=== PATIENT | male | born 1970 | race Caucasian/White ===

== ENCOUNTER 2021-05-18 18:39 | Observation (INO) | payer BC, SELFPAY ==
--- NOTE | ~2021-05-18 | XR_ITS ---
EXAMINATION: XR chest 2V EXAM DATE: 05/18/2021 19:06 INDICATION: HX MA Stents In February,Dizzy,Richard Arm Weakness. TECHNIQUE: Frontal and lateral projections of the chest obtained and reviewed. There is no prior italo dy for comparison. FINDINGS: The lungs are clear. There are no pleural effusions. The cardiomediastinal silhouette is within normal limits. There is no pneumothorax suspected. The bones and soft tissues are unremarkab le. IMPRESSION: No acute cardiopulmonary findings. Reviewed, dictated and finalized at location [facility] [employer]
--- NOTE | 2021-05-18 18:40 | ECG_ITS ---
Measurements Intervals [place] Rate: 73 P: 51 NM: 143 QRS: -25 QRSD: 104 T: 36 QT: 420 QTc: 463 Interpretive Statements SINUS RHYTHM INCOMPLETE RIGHT BUNDLE BRANCH BLOCK CONSIDER INFERIOR INFARCT, AGE INDETERMINATE ABNORMAL ECG Electronically Signed On 05-19-2021 6:32:05 DIVISION SUPERVISOR by Carlton Clement D.O.
[2021-05-18 18:51] VITALS: BP 130/89; PULSE 74; RESP 18; TEMP 36.6; O2SAT 98
[2021-05-18 19:37] LABS: Alanine Aminotransferase 55 U/L (4-50); Albumin Level 4.3 g/dL (3.5-5.1); Alkaline Phosphatase 106 U/L (38-126); Anion Gap 2 mmol/L (8-16); Aspartate Amino Transferase 41 U/L (17-59); Bilirubin,Total 0.5 mg/dL (0.2-1.3); Blood Urea Nitrogen 20 mg/dL (9-20); Calcium 8.9 mg/dL (8.4-10.2); Carbon Dioxide 29 mmol/L (22-30); Chloride 105 mmol/L (98-107); Estimated CRCL calculation 92 ml/min; Estimated Glomerular Filt Rate > 60; Glucose 118 mg/dL (65-110); INR 0.9; Lipase 115 U/L (23-300); Prothrombin Time 12.3 Seconds (11.1-14.7); Sodium 136 mmol/L (137-145)
[2021-05-18 19:38] LABS: Partial Thromboplastin Time 25.7 SECONDS (22.3-36.8)
[2021-05-18 19:48] LABS: Troponin I < 0.012 ng/mL (0.000-0.034)
[2021-05-18 21:15] VITALS: BP 130/80; PULSE 63; RESP 18; TEMP 36.6; O2SAT 98
[2021-05-18 21:28] LABS: Basophils Percent Auto 0.3 % (0.2-1.2); Eosinophils Absolute Auto 0.1 K/mm3 (0-0.3); Hematocrit 45.6 % (42.0-52.0); Hemoglobin 15.3 g/dL (14.0-18.0); Immature Granulocyte Absolute 0.01 K/mm3 (0.00-0.031); Immature Granulocyte Percent A 0.3 % (0-0.5); Lymphocytes Absolute Auto 0.77 K/mm3 (0.9-3.2); Mean Corpuscular HGB Conc 33.6 g/dl (32-36); Mean Corpuscular Hemoglobin 28.5 pg (26-34); Mean Corpuscular Volume 84.9 fl (80-100); Mean Platelet Volume 9.8 fl (7.4-10.4); Monocytes Absolute Auto 0.5 K/mm3 (0.1-0.6); Monocytes Percent Auto 12.8 % (2.6-8.5); Neutrophils Absolute Auto 2.3 K/mm3 (1.3-6.7); Neutrophils Percent Auto 62.6 % (45.5-73.1); Platelet Count Result 149 k/mm3 (150-375); Red Blood Count 5.37 M/mm3 (4.6-6.20); White Blood Count 3.7 K/mm3 (4.5-10.0)
[2021-05-18 21:41] VITALS: PULSE 64
[2021-05-18] MEDS: ASPIRIN 81 MG CHEWABLE TABLET 324 MG PO (21:48)
[2021-05-18 21:52] LABS: Troponin I < 0.012 ng/mL (0.000-0.034)
[2021-05-18] MEDS: Please add drug allergy info to patient profile. 1 EACH XX (21:59)
[2021-05-18] MEDS: NITROGLYCERIN OINTMENT 1 INCH DOSE TRANSDERM (22:00)
[2021-05-18 22:02] VITALS: BP 125/82; PULSE 61; RESP 18; O2SAT 98
--- NOTE | 2021-05-18 22:17 | ED.CHESTPAIN ---
HPI - Chest Pain General Chief Complaint: Chest Pain Stated Complaint: Chest Pain Time Seen by Provider: 05/18/21 21:33 Source: patient Mode of arrival: ambulatory Limitations: no limitations History of Present Illness HPI narrative: Patient is a 50-year-old male complaining of chest pain, midsternal, tightness, was 6 out of 10, currently now down to 0 out of 10, nonradiating accompanied by shortness of breath and nausea that started earlier tonight. Patient states that he is feeling better and currently has no symptoms. Patient denies any abdominal pain, vomiting, diaphoresis, fever or chills. Review of Systems Review of Systems: All systems reviewed & are unremarkable except as noted in HPI and below Constitutional: Constitutional: Denies body ache(s), Denies chills, Denies excessive sweating, Denies fatigue, Denies fever(s), Denies headache(s), Denies lethargy, Denies malaise, Denies weakness and Denies weight loss Eyes: Eyes: Denies blurry vision, Denies change in vision and Denies loss of vision ENT: Denies dizziness, Denies ear discharge, Denies headache(s), Denies lip swelling, Denies epistaxis, Denies nasal congestion, Denies neck pain, Denies throat swelling and Denies tongue swelling Cardiovascular: Cardiovascular: Denies diaphoresis, Denies rapid heart rate, Denies edema, Denies irregular heart rhythm, Denies lightheadedness and Denies palpitations Respiratory: Respiratory: Denies chest congestion, Denies cough and Denies hemoptysis Gastrointestinal: Gastrointestinal: Denies abdominal pain, Denies melena, Denies hematochezia, Denies diarrhea, Denies vomiting and Denies hematemesis Musculoskeletal: Musculoskeletal: Denies abnormal gait, Denies deformity, Denies joint swelling, Denies limited range of motion, Denies neck pain and Denies numbness Neurologic: Denies Abnormal speech present, Denies abnormal gait, Denies confusion, Denies dizziness, Denies headache(s), Denies focal weakness, Denies loss of vision, Denies numbness, Denies Other visual disturbances, Denies Sensory deficit (Neuro) and Denies weakness Psychiatric: Psychiatric: Denies confusion, Denies depression, Denies auditory hallucinations, Denies homicidal ideation and Denies suicidal ideation Endocrine: Endocrine: Denies cold intolerance, Denies excessive sweating, Denies fatigue, Denies heat intolerance and Denies palpitations Hematologic/Lymphatic: Hematologic/Lymphatic: Denies easy bleeding and Denies easy bruising Allergic/Immunologic: Allergic/Immunologic: Denies lip swelling, Denies throat swelling and Denies tongue swelling PMFSH Comments Past medical history: Coronary artery disease with stent placement, OR, atrial fibrillation, hypertension Family history: Positive for coronary artery disease Social history: Non-smoker no EtOH or drug use Exam Const: General: cooperative, healthy appearing, comfortable, no acute distress, well developed, alert and awake; No confusion Orientation/consciousness: oriented to person, oriented to place, oriented to time, patient oriented x3 and No confusion Limitations: no limitations HENMT: Head: normal to inspection, normocephalic and atraumatic Ears: hearing grossly normal bilaterally, TM normal on the right and TM normal on the left General nose exam: Normal external nose present, Normal nares present and No nasal discharge present Face and sinus: normal facial exam Mouth: Yes Normal oral and palatal mucosa present, Yes lip normal, Yes tongue normal and Yes oropharynx normal Throat: posterior oropharynx normal, tonsils normal and uvula midline Eyes: General: appearance normal, both eyes and all related structures Pupils: Equal, round and reactive pupils present EOM: EOMs intact bilaterally Neck: Neck: normal visual inspection, full ROM, no lymphadenopathy and no meningeal signs Chest: Chest palpation & inspection: normal inspection of the chest Resp: Effort & Inspection: normal respiratory effort, able to speak in
--- NOTE | 2021-05-18 22:52 | PM.IMHP ---
H&P: HPI History of Present Illness Date/Time: 05/18/21 22:52 Chief Complaint: Chest pain Narrative: This is a 50-year-old male with past medical history significant for coronary artery disease status post stent placement. Patient is in the area looking to buy a house and was house hunting when he suddenly felt shooting pain down and his neck to his elbows bilaterally, feeling of warmth, chest pain, which he states is nothing like when he had the heart attack' patient has been compliant with his medication he had a drug-eluting stent placed. He had episodes of angina post cardiac catheterization going a 2nd time for cardiac catheterization is stent was patent and he was placed on Ranexa. Patient has been his usual state of health denies any fevers, any rigors ,any chills ,any cough, sputum production, shortness of breath ,cough ,PND ,orthopnea, leg swelling, calves pain, no dizziness, no lightheadedness, no syncope or near syncope, denies any chest pain radiating to the jaw, shoulder or arm, on the left side no change in vision. Preliminary workup has been essentially nonrevealing. Patient is being admitted for further evaluation management and treatment. Review of Systems Review of Systems: Chest discomfort Constitutional: Constitutional: Denies chills, Denies fatigue, Denies fever(s), Denies malaise, Denies night sweats and Denies weakness Eyes: Eyes: Denies change in vision ENT: Denies dysphagia, Denies vertigo, Denies dizziness, Denies nasal congestion, Denies nasal discharge, Denies nasal obstruction and Denies odynophagia Cardiovascular: Cardiovascular: Reports chest pain, Denies syncope, Denies pedal edema, Denies irregular heart rhythm, Denies leg edema, Denies lightheadedness, Denies radiating jaw, neck or arm pain, Denies palpitations, Denies dyspnea on exertion, Denies orthopnea and Denies paroxysmal nocturnal dyspnea Respiratory: Respiratory: Denies cough, Denies excessive phlegm production, Denies dyspnea and Denies wheezing Gastrointestinal: Gastrointestinal: Denies abdominal pain, Denies dyspepsia, Denies heartburn, Denies diarrhea, Denies nausea and Denies vomiting Genitourinary: Genitourinary: Denies dysuria Musculoskeletal: Musculoskeletal: Denies back pain, Denies myalgias, Denies arthralgias, Denies joint swelling, Denies muscle cramps, Denies muscle weakness and Denies neck pain Integumentary/Breasts: Skin/Breast: Denies rash Neurologic: Denies vertigo, Denies dizziness, Denies syncope, Denies focal weakness and Denies Sensory deficit (Neuro) Psychiatric: Psychiatric: Reports no additional psychiatric complaints and Reports as per HPI Endocrine: Endocrine: Denies cold intolerance, Denies heat intolerance, Denies polyphagia, Denies polydipsia and Denies palpitations Hematologic/Lymphatic: Hematologic/Lymphatic: Reports no additional hematologic/lymphatic complaints and Reports as per HPI Allergic/Immunologic: Allergic/Immunologic: Reports no additional allergic/immunologic complaints and Reports as per HPI [facility] Social History Social History Smoking status: Never smoker Alcohol intake: never Substance use: never Substance use type: does not use Spiritual care concerns: No Meds Home Medications and Allergies Home Medications Medication Instructions Recorded Confirmed Type aspirin [Adult Low Dose Aspirin] 81 mg PO DAILY 05/18/21 05/18/21 History clopidogrel [Plavix] 75 mg PO DAILY 05/18/21 05/18/21 History metoprolol succinate [Toprol XL] 50 mg PO BOLUS 05/18/21 05/18/21 History nitroglycerin [Nitrostat] 0.4 mg SUBLINGUAL PRN PRN 05/18/21 05/18/21 History ranolazine [Ranexa] 500 mg PO BID 05/18/21 05/18/21 History rosuvastatin [Crestor] 40 mg PO QACDINNER 05/18/21 05/18/21 History Allergies Allergy/AdvReac Type Severity Reaction Status Date / Time No Known Allergies Allergy Verified 05/19/21 00:11 Vital Signs Vital Signs - 24 hr 05/18/21 18:51 05/18/21 21:15 05/18/21 21:41
[2021-05-18 23:00] VITALS: BP 115/79; PULSE 58; RESP 18; O2SAT 99
[2021-05-19] VITALS (9 sets, daily range): BP systolic 103–125; BP diastolic 61–74; PULSE 48–81; RESP 14–20; TEMP 36.3–37.1; O2SAT 98–99; BMI 34.2
[2021-05-19 01:01] LABS: SARS-CoV-2 RNA PCR Positive
--- NOTE | 2021-05-19 01:15 | PC.NURSE ---
attempted to call report to IMU nurse will call back
[2021-05-19 01:40] LABS: Troponin I < 0.012 ng/mL (0.000-0.034)
--- NOTE | 2021-05-19 02:40 | ADMGEN ---
This patient, Rafi Yepez, was admitted to IMU Room 213-05/19/21 at 0150. Patient/family oriented to hospital policies and general routines including ID bracelet, bed and alarms, visiting hours, pain management, procedures, bathroom and other care routines, personal items, smoking policy, room service/diet, and visiting hours. Information on how to activate the Rapid Response Team has been discussed. Patient/Family are encouraged to report perceived risks to care and to ask questions if they do not understand what they are told or what they should do.
[2021-05-19] MEDS: ASPIRIN 81 MG ENTERIC TABLET PO (08:24)
[2021-05-19] MEDS: CLOPIDOGREL BISULFATE 75 MG TABLET PO (08:24)
[2021-05-19] MEDS: RANOLAZINE 500 MG TAB.ER.12H PO (08:24)
--- NOTE | 2021-05-19 08:45 | PM.CNCAR ---
Assessment and Plan Assessment and plan (1) Coronary artery disease: Code(s): I25.10 - Atherosclerotic heart disease of [place] coronary artery without angina pectoris Status: Acute Assessment and Plan: History of coronary artery disease with AMI in February 2021 s/p stenting. Details of his PCI are unknown as this procedure was done in [place], but from patient description sounds like he received one stent to his LAD. He did return to the pathology laboratory aides teacher for a repeat angiogram subsequent to stent placement for some chest pain and what the patient describes as numbness and shakiness. According to the patient's report there was no restenosis of recently placed stent and no other obstructive disease that was intervened upon. He was placed on Ranexa. He is on DAPT with ASA, Plavix (2) Chest pain: Qualifiers: Chest pain type: chest pain due to myocardial ischemia Ischemic chest pain type: stable angina pectoris Qualified Code(s): I20.8 - Other forms of angina pectoris Code(s): R07.9 - Chest pain, unspecified Status: Acute Assessment and Plan: Atypical sounding chest pain with associated clammy palms, feeling jittery and bilateral upper arm pain. His serial troponin levels have been negative and EKG does not have any ST-T changes suggestive of ischemia. Symptoms possibly associated with paroxysms of atrial fibrillation. No indication for further cardiac work up at this time. He does have an appointment with his local drug enforcement administration agent early next week and will be established with our practice when he moves. Will arrange outpatient follow up in one month. (3) Atrial fibrillation, currently in sinus rhythm: Code(s): Z86.79 - Personal history of other diseases of the circulatory system Status: Acute Assessment and Plan: Has been in sinus rhythm with no evidence of atrial fibrillation on telemetry during this hospitalization. History of Present Illness History of Present Illness Consult date/time: 05/19/21 08:45 Mr. Yepez this is a 50-year-old male with a medical history of coronary disease status post PCI in February of 2021 and paroxysmal atrial fibrillation. Patient who presented to the emergency department yesterday with complaints of feeling jittery and having sweaty palms. He states that he and his for viewing several homes yesterday as they are planning to move to the area soon when he began to experience clammy palms, feeling jittery, and some mild chest discomfort. He describes the pain as very mild, rating it a 2-3/10. He also describes some muscle cramping on his bilateral triceps. The symptoms came and went for a span of about 7 hours at which point he decided to present to the emergency department. Since his presentation to the hospital he has not had any recurrence of symptoms and presently he has no chest pain or other symptoms. He was tested for COVID and his results have come back positive. Currently saturating well on room air with no respiratory distress. Requesting physician: Real Bernal MD Consult reason: chest pain Reason For Visit: Chest Pain Review of Systems Review of Systems: All systems reviewed & are unremarkable except as noted in HPI and below Constitutional: Constitutional: Denies fatigue, Denies lethargy and Denies weakness Eyes: Eyes: Denies change in vision ENT: Denies Normal hearing present (hearing loss left ear ) Cardiovascular: Cardiovascular: Reports chest pain, Denies diaphoresis, Denies pedal edema, Denies leg edema, Denies lightheadedness and Denies palpitations Respiratory: Respiratory: Denies dyspnea and Denies dyspnea on exertion Gastrointestinal: Gastrointestinal: Denies constipation and Denies diarrhea Genitourinary: Genitourinary: Denies urinary frequency, Denies urinary hesitancy and Denies urinary urgency Musculoskeletal: Musculoskeletal: Denies myalgias, Denies arthralgias and Denies joint swelling Integum
--- NOTE | 2021-05-19 13:20 | PM.DS ---
DS: Discharge Diagnosis Discharge Diagnosis (1) Chest pain: Qualifiers: Chest pain type: chest pain due to myocardial ischemia Ischemic chest pain type: stable angina pectoris Qualified Code(s): I20.8 - Other forms of angina pectoris Code(s): R07.9 - Chest pain, unspecified Status: Acute Assessment and Plan: Admit to IMU Continues telemetry Trend troponins EKG reviewed Repeat EKG in the morning Cardiology consult (2) Coronary artery disease: Code(s): I25.10 - Atherosclerotic heart disease of [place] coronary artery without angina pectoris Status: Acute Assessment and Plan: Status post stent placement drug-eluting Continue home meds Continue to monitor On Ranexa, Crestor, metoprolol, nitroglycerin, Plavix and aspirin. DS: Summary Time Spent with Patient Time attestation: Total time spent providing and/or coordinating discharge services: DS: Data Data Completed and Pending Labs on day of discharge: Labs from last 24 hours 05/19/21 05/19/21 05/18/21 01:11 00:14 21:20 WBC RBC Hgb Hct MCV MCH MCHC RDW Plt Count MPV Immature Gran % (Auto) Neut % (Auto) Lymph % (Auto) [place] % (Auto) Eos % (Auto) Baso % (Auto) Lymph # (Auto) [place] # (Auto) Eos # (Auto) Baso # (Auto) Abs Immat Gran (auto) Absolute Neuts (auto) Absolute Nucleated RBC Nucleated RBC % PT INR APTT Sodium Potassium Chloride Carbon Dioxide Anion Gap BUN Creatinine Estim Creat Clear Calc Estimated GFR Glucose Calcium Total Bilirubin AST ALT Alkaline Phosphatase Troponin I < 0.012 < 0.012 Total Protein Albumin Lipase SARS-CoV-2 RNA (RT-PCR) Positive A 05/18/21 05/18/21 05/18/21 21:20 19:22 19:22 WBC 3.7 L RBC 5.37 Hgb 15.3 Hct 45.6 MCV 84.9 MCH 28.5 MCHC 33.6 RDW 12.0 Plt Count 149 L MPV 9.8 Immature Gran % (Auto) 0.3 Neut % (Auto) 62.6 Lymph % (Auto) 21.0 [place] % (Auto) 12.8 H Eos % (Auto) 3.0 Baso % (Auto) 0.3 Lymph # (Auto) 0.77 L [place] # (Auto) 0.5 Eos # (Auto) 0.1 Baso # (Auto) 0.0 Abs Immat Gran (auto) 0.01 Absolute Neuts (auto) 2.3 Absolute Nucleated RBC 0.0 Nucleated RBC % 0.0 PT 12.3 INR 0.9 APTT 25.7 Sodium 136 L Potassium 4.0 Chloride 105 Carbon Dioxide 29 Anion Gap 2 L BUN 20 Creatinine 1.00 Estim Creat Clear Calc 92 Estimated GFR > 60 Glucose 118 H Calcium 8.9 Total Bilirubin 0.5 AST 41 ALT 55 H Alkaline Phosphatase 106 Troponin I < 0.012 Total Protein 7.0 Albumin 4.3 Lipase 115 SARS-CoV-2 RNA (RT-PCR) Discharge Plan Discharge Attending physician on discharge: Juan Duggan Consulting providers: Fatou Irwin ; Ramon Cortes ; Carlton Clement ; Dinora Salazar Discharging Clinician: Juan Duggan Patient Disposition: Home, Self-Care Activity: as tolerated Diet: heart healthy Discharge Instructions: Patient is instructed wear mask and follow social distancing, patient to follow up with aquarium specialist and primary care provider as soon as possible. Patient Instructions: Antibiotic Form, Blood Thinners (DC) Stand Alone Forms: General Discharge Information Follow-up/Referrals: Dinora Salazar, JAYRO-C [Advanced Practice Nurse] - UNKNOWN,DOCTOR [Primary Care Provider] - Discharge Medications: Continued metoprolol succinate [Toprol XL] 50 mg tablet extended release 24 hr 50 mg PO BOLUS RF: 0 clopidogrel [Plavix] 75 mg tablet 75 mg PO DAILY RF: 0 nitroglycerin [Nitrostat] 0.4 mg tablet, sublingual 0.4 mg sublingual PRN PRN (Reason: Chest Pain) RF: 0 aspirin 81 mg Tablet 81 mg PO DAILY RF: 0 rosuvastatin [Crestor] 20 mg tablet 40 mg PO QACDINNER RF: 0 ranolazine [Ranexa] 500 mg tablet extended rele
--- NOTE | 2021-05-19 16:38 | PC.NURSE ---
1630-discharge instructions given to pt. questions answered, and pt belongings with pt.
--- NOTE | 2021-05-19 16:52 | PC.NURSE ---
1845-pt discharged and transported to [facility] with tech.
--- NOTE | 2021-06-05 15:20 | PM.DS ---
DS: Admitting Diagnosis Discharge Date 05/19/21 Admitting Diagnosis chest pain DS: Discharge Diagnosis Discharge Diagnosis (1) Chest pain: Qualifiers: Chest pain type: chest pain due to myocardial ischemia Ischemic chest pain type: stable angina pectoris Qualified Code(s): I20.8 - Other forms of angina pectoris Code(s): R07.9 - Chest pain, unspecified Status: Acute Assessment and Plan: Admit to IMU Continues telemetry Trend troponins EKG reviewed Repeat EKG in the morning Cardiology consult (2) Coronary artery disease: Code(s): I25.10 - Atherosclerotic heart disease of [place] coronary artery without angina pectoris Status: Acute Assessment and Plan: Status post stent placement drug-eluting Continue home meds Continue to monitor On Ranexa, Crestor, metoprolol, nitroglycerin, Plavix and aspirin. DS: Summary Hospital Course Reason for hospitalization: Chief Complaint: Chest pain Narrative: This is a 50-year-old male with past medical history significant for coronary artery disease status post stent placement. Patient is in the area looking to buy a house and was house hunting when he suddenly felt shooting pain down and his neck to his elbows bilaterally, feeling of warmth, chest pain, which he states is nothing like when he had the heart attack' patient has been compliant with his medication he had a drug-eluting stent placed. He had episodes of angina post cardiac catheterization going a 2nd time for cardiac catheterization is stent was patent and he was placed on Ranexa. Patient has been his usual state of health denies any fevers, any rigors ,any chills ,any cough, sputum production, shortness of breath ,cough ,PND ,orthopnea, leg swelling, calves pain, no dizziness, no lightheadedness, no syncope or near syncope, denies any chest pain radiating to the jaw, shoulder or arm, on the left side no change in vision. Preliminary workup has been essentially nonrevealing. Patient is being admitted for further evaluation management and treatment. Hospital Course: patient presented with complaint of chest pain history of coronary artery disease and had a stent placed February of 2021, currently patient tropes are negative seen by cardiology does not recommend any ischemic workup as patient is scheduled to see his own hangar attendant next week co follow-up, patient is clinically stable discharge the patient today Status at Discharge Functional status at discharge: independent ambulation Overall status at discharge: patient is back to baseline Time Spent with Patient Time attestation: Total time spent providing and/or coordinating discharge services: Patient was seen and examined at the time of the discharge Condition at discharge is stable Code status: Full code. Time spent preparing discharge summary, discharge medications, discussing discharge planning with case checker and patient is 35 minutes. Time spent: Greater than 30 minutes Exam Narrative: Patient is comfortable, NAD HEENT: eyes are clear and none icteric LUNGS:CTA HEART: RR S1S2 ABD: BS+, Soft and nontender Lower extremities: no edema SKIN: nonjaundiced Neuro: grossly intact. Discharge Plan Discharge Attending physician on discharge: Juan Duggan Consulting providers: Fatou Irwin ; Ramon Cortes ; Carlton Clement ; Dinora Salazar Discharging Clinician: Juan Dgugan Patient Disposition: Home, Self-Care Activity: as tolerated Diet: heart healthy Discharge Instructions: Patient is instructed wear mask and follow social distancing, patient to follow up with hangar attendant and primary care provider as soon as possible. Patient Instructions: Antibiotic Form, Blood Thinners (DC) Stand Alone Forms: General Discharge Information Follow-up/Referrals: Dinora Salazar APN-C [Advanced Practice Nurse] - UNKNOWN,DOCTOR [Primary Care Provider] - Discharge Medications: Continued me
== END 2021-05-19 16:50 | disposition home or self-care (01) ==
LOC: ANHED 22:56 → ANHIMU 05-19 02:50
PROVIDERS: Emergency Medicine; Admitting Provider Internal Medicine; Emergency Provider Emergency Medicine; Visit Provider Family Medicine
DX: U07.1 COVID-19 (principal); I25.118 Atherosclerotic heart disease of native coronary artery with other forms of angina pectoris; R07.9 Chest pain, unspecified; R06.02 Shortness of breath; I10 Essential (primary) hypertension; I25.2 Old myocardial infarction; Z86.79 Personal history of other diseases of the circulatory system; Z95.5 Presence of coronary angioplasty implant and graft; Z79.82 Long term (current) use of aspirin; Z79.02 Long term (current) use of antithrombotics/antiplatelets
CPT/HCPCS: 36415; 71046; 80053; 83690; 84484; 85025; 85610; 85730; 93005; 99285; A9270; C9803; G0378; U0003; U0005

== ENCOUNTER 2022-03-05 12:24 | Emergency (ER) | payer BC, SELFPAY ==
--- NOTE | ~2022-03-05 | XR_ITS ---
EXAMINATION: XR chest 2V DATE: 03/05/2022 13:55 INDICATION: Shortness of breath, chest pain and tightness TECHNIQUE: PA and lateral views of the chest were obtained. COMPARISON: Chest radiograph dated 05/18/2021 FINDINGS: The lungs remain clear with no focal airspace opacities, pulmonary edema, pleural effusion or pneumot horax. The cardiomediastinal silhouette is normal. Visualized bones and soft tissues are unremarkable . IMPRESSION: 1. No acute cardiopulmonary disease. Reviewed, dictated and finalized at location A. RUMENT LENS INSPECTOR
--- NOTE | 2022-03-05 12:35 | ECG_ITS ---
Measurements Intervals [place] Rate: 64 P: 34 VA: 120 QRS: -11 QRSD: 108 T: 43 QT: 422 QTc: 437 Interpretive Statements SINUS RHYTHM INCOMPLETE RIGHT BUNDLE BRANCH BLOCK BORDERLINE T WAVE ABNORMALITY- ANTERIOR LEADS BASELINE ARTIFACT- V2-V3 BORDERLINE ECG COMPARED TO ECG 05/18/2021 18:47:14 NO SIGNIFICANT CHANGES Electronically Signed On 03-05-2022 18:02:00 DEPARTMENT OF NATURAL RESOURCES OFFICER by Carlton Clement D.O.
[2022-03-05 12:48] VITALS: BP 131/82; PULSE 70; RESP 16; TEMP 36.9; O2SAT 99
[2022-03-05 13:09] LABS: Basophils Percent Auto 0.3 % (0.2-1.2); Eosinophils Absolute Auto 0.1 K/mm3 (0-0.3); Eosinophils Percent Auto 1.3 % (0-4.4); Hemoglobin 15.5 g/dL (14.0-18.0); Immature Granulocyte Absolute 0.01 K/mm3 (0.00-0.031); Immature Granulocyte Percent A 0.1 % (0-0.5); Lymphocytes Absolute Auto 0.81 K/mm3 (0.9-3.2); Mean Corpuscular Hemoglobin 29.2 pg (26-34); Mean Corpuscular Volume 88.7 fl (80-100); Mean Platelet Volume 9.9 fl (7.4-10.4); Monocytes Absolute Auto 0.6 K/mm3 (0.1-0.6); Monocytes Percent Auto 8.6 % (2.6-8.5); Neutrophils Absolute Auto 5.3 K/mm3 (1.3-6.7); Neutrophils Percent Auto 77.7 % (45.5-73.1); Platelet Count Result 166 k/mm3 (150-375); Red Cell Distribution Width 11.9 % (11.5-14.5); White Blood Count 6.8 K/mm3 (4.5-10.0)
[2022-03-05 13:18] LABS: INR 1.1; Prothrombin Time 13.5 Seconds (11.1-14.7)
[2022-03-05 13:23] LABS: Alanine Aminotransferase 29 U/L (6-50); Albumin Level 4.4 g/dL (3.5-5.1); Alkaline Phosphatase 69 U/L (38-126); Anion Gap 11 mmol/L (8-16); Aspartate Amino Transferase 26 U/L (17-59); Bilirubin,Total 0.7 mg/dL (0.2-1.3); Blood Urea Nitrogen 15 mg/dL (9-20); Carbon Dioxide 26 mmol/L (22-30); Chloride 104 mmol/L (98-107); Estimated CRCL calculation 82 ml/min; Estimated Glomerular Filt Rate > 60; Glucose 111 mg/dL (65-110); Lipase 83 U/L (23-300); Sodium 141 mmol/L (137-145)
[2022-03-05 13:33] LABS: Troponin I < 0.012 ng/mL (0.000-0.034)
[2022-03-05 14:01] VITALS: BP 127/83; PULSE 69; RESP 20; TEMP 36.5; O2SAT 98
--- NOTE | 2022-03-05 14:58 | ED.SOB ---
HPI - SOB/Dyspnea General Chief Complaint: Shortness of Breath/Dyspnea <Lisa Bingham PA-C - Last Filed: 03/05/22 18:18> Stated Complaint: shortness of breath <KAREN Marcelino Last Filed: 03/05/22 18:18> Time Seen by Provider: 03/05/22 14:04 <Lisa Bingham PA-C - Last Filed: 03/05/22 18:18> Source: patient <KAREN Marcelino Last Filed: 03/05/22 18:18> Mode of arrival: ambulatory <KAREN Marcelino Last Filed: 03/05/22 18:18> Limitations: no limitations <KAREN Marcelino Last Filed: 03/05/22 18:18> History of Present Illness HPI Narrative: This is a 51 year old male that presents to the ER for exertional dyspnea. Ongoing over the last couple of days. He has history of CAD. His metal cnc operator is Dr. Butler. Patient just had nuclear stress test 2 weeks ago that was negative for ischemia. He has some intermittent chest tightness and congestion as well. He denies any current chest pain. Denies fever, cough, or lower extremity edema. <KAREN Marcelino Last Filed: 03/05/22 18:18> Related Data Home Medications: Home Medications Medication Instructions Recorded Confirmed aspirin 81 mg tablet 81 mg PO DAILY 05/18/21 05/18/21 clopidogrel 75 mg tablet (Plavix) 75 mg PO DAILY 05/18/21 05/18/21 metoprolol succinate 50 mg 50 mg PO BOLUS 05/18/21 05/18/21 tablet,extended release 24 hr (Toprol XL) nitroglycerin 0.4 mg sublingual 0.4 mg sublingual PRN PRN Chest 05/18/21 05/18/21 tablet (Nitrostat) Pain ranolazine 500 mg tablet,extended 500 mg PO BID 05/18/21 05/18/21 release,12 hr (Ranexa) rosuvastatin 20 mg tablet (Crestor) 40 mg PO QACDINNER 05/18/21 05/18/21 <KAREN Marcelino Last Filed: 03/05/22 18:18> Allergies/Adverse Reactions: Allergies Allergy/AdvReac Type Severity Reaction Status Date / Time No Known Allergies Allergy Verified 05/19/21 00:11 <Lisa Bingham PA-C - Last Filed: 03/05/22 18:18> Review of Systems Review of Systems: CONSTITUTIONAL: Denies fever ENT: Reports congestion CARDIOVASCULAR: Reports chest pain. Denies palpitations, or edema. RESPIRATORY: Reports dyspnea. Denies cough GASTROINTESTINAL: Denies nausea, vomiting <Lisa Bingham PA-C - Last Filed: 03/05/22 18:18> All systems reviewed & are unremarkable except as noted in HPI and below <Lisa Bingham PA-C - Last Filed: 03/05/22 18:18> [facility] Past Medical History Medical History: Medical History (Updated 03/05/22 @ 18:14 by Lisa Bingham PA-C) History of atrial fibrillation History of coronary artery disease <Lisa Bnigham PA-C - Last Filed: 03/05/22 18:18> Surgical History Surgical History: Surgical History (Updated 03/05/22 @ 15:04 by Lisa Bingham PA-C) History of coronary artery stent placement <Lisa Bingham PA-C - Last Filed: 03/05/22 18:18> Social History Social History: Social History Smoking status: Never smoker Alcohol intake: never Substance use: never Substance use type: does not use Spiritual care concerns: No <Lisa Bingham PA-C - Last Filed: 03/05/22 18:18> Exam Narrative: GENERAL: Well-appearing, well-nourished, and in no acute distress. HEAD: Normocephalic, atraumatic. EYES: EOMI. ENT: Mucous membranes moist. Oropharynx without tonsillar hypertrophy exudate or other lesions. CHEST: Clear to auscultation. No respiratory distress. No wheezes rales or rhonchi HEART: Regular rate and rhythm. No murmur heard. Normal peripheral pulses. EXTREMITIES: Normal range of motion. No edema. SKIN: Warm, dry, no rash. NEURO: No focal deficits. Alert and oriented x3. PSYCH: Normal mood and affect <Lisa Bingham PA-C - Last Filed: 03/05/22 18:18> Course ADMINISTRATIVE REPRESENTATIVE/PA Physician Supervision For this patient encounter, I reviewed the ADMINISTRATIVE REPRESENTATIVE or PA documentation, treatment plan, and medical decision making <Robel Oquendo MD
[2022-03-05 15:10] LABS: NT Pro B Type Natriuretic Pept 114 pg/mL (5-100)
[2022-03-05 15:34] LABS: D Dimer 0.37 ug/mL (<0.48)
[2022-03-05 16:33] LABS: Influenza A QL RT-PCR Negative (Negative); Influenza B QL RT-PCR Negative (Negative); SARS-CoV-2 RNA PCR Negative
[2022-03-05 16:41] LABS: Troponin I < 0.012 ng/mL (0.000-0.034)
[2022-03-05 18:59] VITALS: O2SAT 96
== END 2022-03-05 19:00 | disposition home or self-care (01) ==
PROVIDERS: Emergency Medicine; Physician Assistant; Emergency Provider Emergency Medicine
DX: R06.09 Other forms of dyspnea (principal); Z20.822 Contact with and (suspected) exposure to COVID-19; I25.10 Atherosclerotic heart disease of native coronary artery without angina pectoris; I48.91 Unspecified atrial fibrillation; Z95.5 Presence of coronary angioplasty implant and graft; Z79.82 Long term (current) use of aspirin; I45.10 Unspecified right bundle-branch block; R94.31 Abnormal electrocardiogram [ECG] [EKG]; Z79.02 Long term (current) use of antithrombotics/antiplatelets
CPT/HCPCS: 36415; 71046; 80053; 83690; 83880; 84484; 85025; 85380; 85610; 85730; 87636; 93005; 99284

== ENCOUNTER 2022-06-19 16:20 | Observation (INO) | payer BC, SELFPAY ==
[2022-06-19] VITALS (11 sets, daily range): BP systolic 114–137; BP diastolic 64–89; PULSE 69–108; RESP 11–48; TEMP 36.1–36.8; O2SAT 96–98; BMI 33.7; BMI 33.8
--- NOTE | ~2022-06-19 | XR_ITS ---
EXAMINATION: XR chest 2V DATE: 06/19/2022 17:19 INDICATION: Left-sided chest pain TECHNIQUE: PA and lateral views of the chest are obtained. COMPARISON: 03/05/2022 FINDINGS: The lungs are free of acute opacities. No pleural effusion or pneumothorax. The cardiomedia stinal silhouette is normal. There is mild thoracic spondylosis. There is an old healed fracture defo rmity of the left clavicle. IMPRESSION: 1. No acute cardiopulmonary abnormality. Reviewed, dictated and finalized at location F. ER REPAIRER
--- NOTE | 2022-06-19 16:28 | ECG_ITS ---
Measurements Intervals [place] Rate: 111 P: 51 ID: 113 QRS: -68 QRSD: 110 T: 44 QT: 368 QTc: 502 Interpretive Statements SINUS TACHYCARDIA WITH SHORT ID INTERVAL LEFT AXIS DEVIATION INCOMPLETE RIGHT BUNDLE BRANCH BLOCK INFERIOR INFARCT, AGE INDETERMINATE ABNORMAL ECG COMPARED TO ECG 03/05/2022 12:45:34 SINUS TACHYCARDIA NOW PRESENT MYOCARDIAL INFARCT FINDING NOW PRESENT Electronically Signed On 06-20-2022 9:58:54 CAPTAIN/CHECK AIRMAN by Carlton Clement D.O.
[2022-06-19 16:51] LABS: Basophils Percent Auto 0.4 % (0.2-1.2); Eosinophils Absolute Auto 0.3 K/mm3 (0-0.3); Eosinophils Percent Auto 3.1 % (0-4.4); Hematocrit 50.1 % (42.0-52.0); Hemoglobin 16.7 g/dL (14.0-18.0); Immature Granulocyte Absolute 0.01 K/mm3 (0.00-0.031); Immature Granulocyte Percent A 0.1 % (0-0.5); Lymphocytes Absolute Auto 2.16 K/mm3 (0.9-3.2); Mean Corpuscular HGB Conc 33.3 g/dl (32-36); Mean Corpuscular Hemoglobin 29.4 pg (26-34); Mean Corpuscular Volume 88.2 fl (80-100); Mean Platelet Volume 9.6 fl (7.4-10.4); Monocytes Absolute Auto 1.3 K/mm3 (0.1-0.6); Monocytes Percent Auto 16.4 % (2.6-8.5); Neutrophils Absolute Auto 4.2 K/mm3 (1.3-6.7); Platelet Count Result 230 k/mm3 (150-375); Red Blood Count 5.68 M/mm3 (4.6-6.20); Red Cell Distribution Width 11.8 % (11.5-14.5)
[2022-06-19 16:59] LABS: Prothrombin Time 12.7 Seconds (11.1-14.7)
[2022-06-19 17:00] LABS: Alanine Aminotransferase 53 U/L (6-50); Albumin Level 4.7 g/dL (3.5-5.1); Alkaline Phosphatase 80 U/L (38-126); Anion Gap 7 mmol/L (8-16); Aspartate Amino Transferase 36 U/L (17-59); Bilirubin,Total 0.7 mg/dL (0.2-1.3); Blood Urea Nitrogen 17 mg/dL (9-20); Carbon Dioxide 27 mmol/L (22-30); Chloride 103 mmol/L (98-107); Estimated Glomerular Filt Rate > 60; Glucose 107 mg/dL (65-110); Lipase 117 U/L (23-300); Partial Thromboplastin Time 23.4 SECONDS (22.3-36.8); Potassium 3.3 mmol/L (3.4-5.0); Sodium 137 mmol/L (137-145)
[2022-06-19 17:12] LABS: Troponin I < 0.012 ng/mL (0.000-0.034)
--- NOTE | 2022-06-19 17:34 | ED.CHESTPAIN ---
HPI - Chest Pain General Chief Complaint: Chest Pain Stated Complaint: chest pain Time Seen by Provider: 06/19/22 16:43 History of Present Illness HPI narrative: Patient is a 51-year-old male who presents ER with chest pain. Occurred 30 minutes prior to arrival. Central pressure and burning across entire chest. Radiating into the back of his neck. History of previous AL 16 months ago. Had a stent to the LAD placed. He takes clopidogrel. Currently follows with Dr. Butler at [facility]. No improvement with nitroglycerin. [place] like his heart rate was little fast and checked his pulse and it was in the low 100s. Patient was driving when symptoms occurred. Related Data Home Medications Medication Instructions Recorded Confirmed aspirin 81 mg tablet 81 mg PO DAILY 05/18/21 05/18/21 clopidogrel 75 mg tablet (Plavix) 75 mg PO DAILY 05/18/21 05/18/21 metoprolol succinate 50 mg 50 mg PO BOLUS 05/18/21 05/18/21 tablet,extended release 24 hr (Toprol XL) nitroglycerin 0.4 mg sublingual 0.4 mg sublingual PRN PRN Chest 05/18/21 05/18/21 tablet (Nitrostat) Pain ranolazine 500 mg tablet,extended 500 mg PO BID 05/18/21 05/18/21 release,12 hr (Ranexa) rosuvastatin 20 mg tablet (Crestor) 40 mg PO QACDINNER 05/18/21 05/18/21 bupropion HCl 300 mg 24 hr tablet, mg PO 06/19/22 extended release isosorbide dinitrate 10 mg tablet mg BID 06/19/22 Allergies Allergy/AdvReac Type Severity Reaction Status Date / Time No Known Allergies Allergy Verified 06/19/22 17:44 Review of Systems Review of Systems: All systems reviewed & are unremarkable except as noted in HPI and below Constitutional: Constitutional: Denies chills and Denies fever(s) Cardiovascular: Cardiovascular: Reports chest pain, Reports rapid heart rate and Reports radiating jaw, neck or arm pain Respiratory: Respiratory: Denies cough, Denies dyspnea and Denies wheezing Gastrointestinal: Gastrointestinal: Denies abdominal pain, Denies nausea and Denies vomiting Musculoskeletal: Musculoskeletal: Denies back pain, Denies arthralgias and Denies joint swelling [facility] Past Medical History Medical History (Updated 06/19/22 @ 17:35 by Ezio Edwards MD) History of atrial fibrillation History of coronary artery disease Surgical History Surgical History (Updated 03/05/22 @ 15:04 by Lisa Bingham PA-C) History of coronary artery stent placement Social History Social History Smoking status: Never smoker Alcohol intake: never Substance use: never Substance use type: does not use Spiritual care concerns: No Exam Narrative: GENERAL: Anxious-appearing, well-nourished, and in no acute distress. HEAD: Normocephalic, atraumatic. ENT: Mucous membranes moist. NECK: Supple. CHEST: Clear to auscultation. No respiratory distress. HEART: Regular rate and rhythm. No murmur heard. Normal peripheral pulses. ABDOMEN: Soft, nontender, nondistended. EXTREMITIES: Normal range of motion. No edema. SKIN: Warm, dry, no rash. NEURO: Alert and oriented x3. PSYCH: Normal mood and affect. Course Course Emergency Course: Patient pain-free at this time. First troponin negative. Given story and previous history will be admitted to hospital service and we will trend the troponins. He has received oral aspirin. Patient aware of lab results and treatment plan and is in agreement. Vital Signs Vital signs: Vital Signs Temperature 98.2 F 06/19/22 16:29 Pulse Rate 108 H 06/19/22 16:29 Respiratory Rate 48 H 06/19/22 16:29 Blood Pressure 137/89 06/19/22 16:29 Pulse Oximetry 98 06/19/22 16:29 Oxygen Delivery Room Air 06/19/22 16:29 Temperature 98.2 F 06/19/22 16:29 Pulse Rate 77 06/19/22 17:21 Respiratory Rate 13 06/19/22 17:21 Blood Pressure 120/64 06/19/22 17:21 Pulse Oximetry 96 06/19/22 17:21 Oxygen Delivery Room Air 06/19/22 16:29 MDM - Chest Pain Lab D
--- NOTE | 2022-06-19 17:40 | PM.IMHP ---
H&P: HPI History of Present Illness Date/Time: 06/19/22 17:40 Chief Complaint: Chest pain. Narrative: This is a pleasant 51-year-old male with coronary artery disease and history of myocardial infarction in February 2021 complicated by cardiac arrest status post stent to I believe the LAD, paroxysmal atrial fibrillation, hypertension, and sleep apnea who presented to the emergency department via private vehicle for evaluation of chest pain. Patient provides the following history. He was driving to work today at about 16:00 when he started to feel flush with sensations of racing heart and irregular heartbeat. At that time he noticed that his heart rate was irregular on his Apple watch, ranging anywhere from 90 to 115. After a short time he then developed nonradiating pressure diffusely across the upper chest associated with nausea and sweats. He took sublingual nitroglycerin without initial benefit though as time has gone on the discomfort has resolved. Vital signs were stable on arrival to the ED. Aside from mild hypokalemia his labs were really unremarkable. Initial troponin was undetectable. Chest x-ray showed no acute findings. EKG has not been located but I was told there was no suggestion of ischemia or acute LA. He was given aspirin 324 mg x 1 in the ED and he is being admitted in this setting for close monitoring and Cardiology consultation. Review of Systems Review of Systems: Twelve systems were reviewed. He has had a cough for the last 3 weeks which has lingered, it is occasionally productive of green phlegm. Family members had similar symptoms. No fever, chills, or sweats. No sinus congestion or sore throat. He denies pleuritic pain. No lower extremity edema. No vomiting. Except as documented, all other systems were reviewed and are negative. [facility] Past Medical History Medical History (Updated 06/19/22 @ 22:22 by Roxanne Cherry PA-C) Coronary artery disease Hypertension Obstructive sleep apnea Paroxysmal atrial fibrillation Skin cancer Surgical History Surgical History (Updated 06/19/22 @ 22:22 by Roxanne Cherry PA-C) History of coronary artery stent placement (02/2021) Family History Family History Father Heart disease FH: CABG (coronary artery bypass surgery) Diabetes mellitus Sibling Diabetes mellitus Mother COPD (chronic obstructive pulmonary disease) Other Skin cancer Social History Social History (Updated 06/19/22 @ 22:22 by Roxanne Cherry PA-C) Social History: Surrogate medical decision maker: Deedee Yepez, spouse. Code status: Full code. Smoking status: Never smoker Alcohol intake: never Substance use: never Substance use type: does not use Lack of Transportation: No Lack of Food: Never True Current Housing: I Have Housing Concerned About Future Housing: YES Difficulty Paying Gas/Electric Bills: No Difficulty Paying for Meds: No Currently Unemployed: YES Education: High School Diploma/GED Difficulty w/ Childcare or Family Care: No Additional living arrangements comments: Lives in [place] with spouse. Originally from [place]. Additional occupation/education comments: Works at the [employer]. Spiritual care concerns: No Meds Home Medications and Allergies Home Medications Medication Instructions Recorded Confirmed Type aspirin 81 mg tablet 81 mg PO DAILY 05/18/21 06/19/22 History clopidogrel 75 mg tablet (Plavix) 75 mg PO DAILY 05/18/21 06/19/22 History metoprolol succinate 50 mg 25 mg PO DAILY 05/18/21 06/19/22 History tablet,extended release 24 hr (Toprol XL) nitroglycerin 0.4 mg sublingual 0.4 mg sublingual PRN PRN Chest 05/18/21 06/19/22 History tablet (Nitrostat) Pain ranolazine 500 mg tablet,extended 500 mg PO Q12H 05/18/21 06/19/22 History release,12 hr (Ranexa) rosuvastatin 20 mg tablet (Crestor) 40 mg PO HS 05/18/21 06/19/22 History b
[2022-06-19] MEDS: ASPIRIN 81 MG CHEWABLE TABLET 324 MG PO (17:49)
--- NOTE | 2022-06-19 18:34 | ADMGEN ---
This patient, Rafi Yepez, was admitted to IMU Room [id number] . Patient/family oriented to hospital policies and general routines including ID bracelet, bed and alarms, visiting hours, pain management, procedures, bathroom and other care routines, personal items, smoking policy, room service/diet, and visiting hours. Information on how to activate the Rapid Response Team has been discussed. Patient/Family are encouraged to report perceived risks to care and to ask questions if they do not understand what they are told or what they should do.
[2022-06-19 20:01] LABS: Troponin I < 0.012 ng/mL (0.000-0.034)
[2022-06-19] MEDS: RANOLAZINE 500 MG TAB.ER.12H PO (23:13)
[2022-06-19] MEDS: POTASSIUM CHLORIDE 20 MEQ TABLET 40 MEQ PO (23:13)
[2022-06-19] MEDS: ISOSORBIDE DINITRATE 10 MG TABLET PO (23:13)
[2022-06-19 23:21] LABS: Troponin I < 0.012 ng/mL (0.000-0.034)
[2022-06-20] VITALS (10 sets, daily range): BP systolic 105–116; BP diastolic 65–67; PULSE 54–74; RESP 12–18; TEMP 36.3–36.6; O2SAT 95–98
[2022-06-20 04:17] LABS: Alanine Aminotransferase 47 U/L (6-50); Albumin Level 3.7 g/dL (3.5-5.1); Alkaline Phosphatase 69 U/L (38-126); Anion Gap 2 mmol/L (8-16); Aspartate Amino Transferase 29 U/L (17-59); Bilirubin,Total 0.9 mg/dL (0.2-1.3); Blood Urea Nitrogen 14 mg/dL (9-20); Calcium 8.3 mg/dL (8.4-10.2); Carbon Dioxide 30 mmol/L (22-30); Chloride 108 mmol/L (98-107); Estimated CRCL calculation 91 ml/min; Estimated Glomerular Filt Rate > 60; Glucose 91 mg/dL (65-110); Magnesium 2.1 mg/dL (1.6-2.3); Potassium 4.5 mmol/L (3.4-5.0); Sodium 140 mmol/L (137-145)
[2022-06-20] MEDS: buPROPion HCL XL (24 HR) 150 MG TABCR 300 MG PO (08:55)
[2022-06-20] MEDS: RANOLAZINE 500 MG TAB.ER.12H PO (08:55)
[2022-06-20] MEDS: ASPIRIN 81 MG ENTERIC TABLET PO (08:56)
[2022-06-20] MEDS: CLOPIDOGREL BISULFATE 75 MG TABLET PO (08:56)
[2022-06-20] MEDS: ISOSORBIDE DINITRATE 10 MG TABLET PO (08:56)
[2022-06-20] MEDS: METOPROLOL SUCCINATE EXT REL 25 MG TABCR PO (08:58)
--- NOTE | 2022-06-20 11:08 | PM.DS ---
DS: Admitting Diagnosis Discharge Date 06/20/22 Admitting Diagnosis Chest pain DS: Discharge Diagnosis Discharge Diagnosis (1) Chest pain: Code(s): R07.9 - Chest pain, unspecified Status: Acute (2) Coronary artery disease: Code(s): I25.10 - Atherosclerotic heart disease of [place] coronary artery without angina pectoris Status: Acute (3) Paroxysmal atrial fibrillation: Code(s): I48.0 - Paroxysmal atrial fibrillation Status: Acute (4) Obstructive sleep apnea: Code(s): G47.33 - Obstructive sleep apnea (adult) (pediatric) Status: Acute (5) Hypertension: Code(s): I10 - Essential (primary) hypertension Status: Acute Plan The patient presented to the emergency department for evaluation of sudden onset of flushing, irregular heartbeat, and chest pressure as per HPI. Labs, imaging, EKG, and all reports were personally reviewed. The setting in which he developed the chest pain is a bit atypical for cardiac pain. More over he reports an irregular heartbeat and sensations of racing heart at that time and it is possible that he was briefly in atrial fibrillation which caused his symptoms. Given his cardiac history he is being admitted overnight for close monitoring and Cardiology consultation. Troponins will be trended. Blood pressures are stable. He is followed by Dr. Vázquez at [facility] and he had a stress test done last February which was reportedly unremarkable. He is compliant with his home medications and does not recall missing any doses recently. Continue dual anti-platelet therapy, long-acting nitrate, beta-omayra, and statin. The rest of his home medications will be reviewed and resumed as appropriate. DS: Summary Hospital Course Reason for hospitalization: chest pain Hospital Course: This is a 51-year-old male with a history of coronary artery disease and DC in February of 2021, paroxysmal atrial fibrillation, hypertension and sleep apnea the presented to the ED on 06/19/2022 with chest pain. Patient noticed that his heart rate was regular on his Apple watch and he had then developed a nonradiating chest pressure. patient had taken sublingual nitroglycerin without relief. Vital signs stable in the ED. patient had some mild hypokalemia which was corrected with potassium replacement. Patient was admitted to observation for troponin monitoring. Troponin was undetectable x3. Chest x-ray no acute finding. EKG in the ED did read as myocardial infarct new compared to previous EKG. Repeat EKG next day revealed sinus bradycardia. I have discussed this case with applications support specialist Dr. Gallegos and she does not believe that EKG has changed much from 03/05/22 to 06/19/22 to 06/20/22. She is not concerned for acute infarct and is okay with the patient being discharged. Potassium 4.5 and magnesium 2.1 at discharge. I recommend patient follow up with his applications support specialist and continue taking cardiac medications. Time Spent with Patient Time attestation: Total time spent providing and/or coordinating discharge services: Exam Narrative: GENERAL: Comfortable, no acute distress HENMT: moist mucous membranes EYES: EOM intact b/l NECK: no lymphadenopathy RESPIRATORY: clear to auscultation CARDIO: RRR GI: soft, nontender, bowel sounds present SKIN: no rashes EXTREMITIES: no edema, redness or tenderness DS: Data Data Completed and Pending Labs on day of discharge: Labs from last 24 hours 06/20/22 06/19/22 06/19/22 03:54 22:21 19:31 WBC RBC Hgb Hct MCV MCH MCHC RDW Plt Count MPV Immature Gran % (Auto) Neut % (Auto) Lymph % (Auto) Garrett % (Auto) Eos % (Auto) Baso % (Auto) Lymph # (Auto) Garrett # (Auto) Eos # (Auto) Baso # (Auto) Abs Immat Gran (auto) Absolute Neuts (auto) Absolute Nucleated RBC Nucleated RBC % PT INR APTT Sodium 140 Potassium 4.5 Chloride 108 H Carbon Dioxide 30 A
--- NOTE | 2022-06-20 11:13 | ECG_ITS ---
Measurements Intervals [place] Rate: 57 P: 44 NC: 132 QRS: -17 QRSD: 106 T: 39 QT: 441 QTc: 432 Interpretive Statements SINUS BRADYCARDIA INCOMPLETE RIGHT BUNDLE BRANCH BLOCK MINIMAL Q WAVES- INFERIOR LEADS BORDERLINE ECG COMPARED TO ECG 06/19/2022 16:25:13 SINUS BRADYCARDIA NOW PRESENT Electronically Signed On 06-20-2022 13:19:06 INCOME TAX EXPERT by Carlton Clement D.O.
== END 2022-06-20 15:03 | disposition home or self-care (01) ==
LOC: ANHED 17:03 → ANHIMU 18:08
PROVIDERS: Emergency Medicine; Physician Assistant; Admitting Provider Hospitalist; Emergency Provider Emergency Medicine; Visit Provider Internal Medicine Critical Care Medicine
DX: R07.9 Chest pain, unspecified (principal); R00.0 Tachycardia, unspecified; I25.2 Old myocardial infarction; I10 Essential (primary) hypertension; I25.10 Atherosclerotic heart disease of native coronary artery without angina pectoris; Z95.5 Presence of coronary angioplasty implant and graft; I48.0 Paroxysmal atrial fibrillation; G47.33 Obstructive sleep apnea (adult) (pediatric); R94.31 Abnormal electrocardiogram [ECG] [EKG]; Z79.01 Long term (current) use of anticoagulants; Z79.82 Long term (current) use of aspirin; Z79.899 Other long term (current) drug therapy; Z82.49 Family history of ischemic heart disease and other diseases of the circulatory system
CPT/HCPCS: 36415; 71046; 80053; 83690; 83735; 84484; 85025; 85610; 85730; 93005; 99285; A9270; G0378

== ENCOUNTER 2022-11-21 23:02 | Observation (INO) | payer BC, SELFPAY ==
--- NOTE | ~2022-11-21 | XR_ITS ---
Clinical Indication: Chest pain PA and lateral views of the chest: Comparison: 06/19/2022 Findings: The lungs are clear, without evidence of focal consolidation or pleural effusion. Cardiome diastinal silhouette is within normal limits. Bones and soft tissues are unremarkable. Impression: Normal chest. Reviewed, dictated and finalized at location . Impression: Normal chest.
--- NOTE | 2022-11-21 23:03 | ECG_ITS ---
Measurements Intervals [place] Rate: 78 P: 40 NV: 116 QRS: -38 QRSD: 104 T: 51 QT: 387 QTc: 443 Interpretive Statements SINUS RHYTHM WITH SHORT [place] INTERVAL MARKED LEFT AXIS DEVIATION [QRS AXIS < -30] INCOMPLETE RIGHT BUNDLE BRANCH BLOCK [90+ ms QRS DURATION, TERMINAL R IN V1/V2, 40+ ms S IN I/aVL/V4/V5/V6] ABNORMAL ECG COMPARED TO ECG 06/20/2022 13:09:33 THERE IS NO SIGNIFICANT CHANGE Electronically Signed On 11-22-2022 13:17:47 CDT by eHrb Worrell M.D.
[2022-11-21 23:25] VITALS: BP 128/74; PULSE 79; RESP 16; TEMP 36.4; O2SAT 98
[2022-11-21 23:41] LABS: Basophils Percent Auto 0.4 % (0.2-1.2); Eosinophils Absolute Auto 0.2 K/mm3 (0-0.3); Eosinophils Percent Auto 3.8 % (0-4.4); Hematocrit 47.8 % (42.0-52.0); Hemoglobin 15.5 g/dL (14.0-18.0); Lymphocytes Absolute Auto 1.09 K/mm3 (0.9-3.2); Lymphocytes Percent Auto 22.9 % (18.3-44.2); Mean Corpuscular HGB Conc 32.4 g/dl (32-36); Mean Corpuscular Hemoglobin 29.3 pg (26-34); Mean Corpuscular Volume 90.4 fl (80-100); Mean Platelet Volume 9.8 fl (7.4-10.4); Monocytes Absolute Auto 0.5 K/mm3 (0.1-0.6); Monocytes Percent Auto 10.5 % (2.6-8.5); Neutrophils Percent Auto 62.4 % (45.5-73.1); Platelet Count Result 172 k/mm3 (150-375); Red Blood Count 5.29 M/mm3 (4.6-6.20); Red Cell Distribution Width 11.5 % (11.5-14.5); White Blood Count 4.8 K/mm3 (4.5-10.0)
[2022-11-21 23:53] LABS: Alanine Aminotransferase 53 U/L (6-50); Albumin Level 4.2 g/dL (3.5-5.1); Alkaline Phosphatase 67 U/L (38-126); Anion Gap 5 mmol/L (8-16); Aspartate Amino Transferase 43 U/L (17-59); Bilirubin,Total 0.5 mg/dL (0.2-1.3); Blood Urea Nitrogen 20 mg/dL (9-20); Calcium 9.3 mg/dL (8.4-10.2); Carbon Dioxide 30 mmol/L (22-30); Chloride 104 mmol/L (98-107); Estimated CRCL calculation 76 ml/min; Estimated Glomerular Filt Rate > 60; Glucose 131 mg/dL (65-110); INR 0.9; Lipase 190 U/L (23-300); Potassium 4.4 mmol/L (3.4-5.0); Prothrombin Time 12.9 Seconds (11.1-14.7); Sodium 139 mmol/L (137-145)
[2022-11-21 23:54] LABS: Partial Thromboplastin Time 25.1 SECONDS (22.3-36.8)
[2022-11-22] VITALS (10 sets, daily range): BP systolic 117–128; BP diastolic 74–83; PULSE 48–68; RESP 15–18; TEMP 36.3–36.7; O2SAT 96–99; BMI 34.0
[2022-11-22 00:04] LABS: Troponin I < 0.012 ng/mL (0.000-0.034)
--- NOTE | 2022-11-22 00:41 | ED.CHESTPAIN ---
HPI - Chest Pain General Chief Complaint: Chest Pain Stated Complaint: chest pressure, shakiness Time Seen by Provider: 11/22/22 00:19 Source: patient and RN notes reviewed Mode of arrival: ambulatory Limitations: no limitations History of Present Illness HPI narrative: THis is a 52 year old male with history of AR, CAD, stent, hyperlipidemia who presents for evaluation of chest pain. Patient states he was in bed when he developed shakiness, chest pressure and burning pain across his chest. He also reports he felt cold and then felt flushed. He reports these symptoms seemed to last about 45 minutes. He states he is unsure if this was due to his heart or being in a fib. He states he felt similar when he was in afib once. He reports he deals with angina causing his right chest pain and he has nitro at home for this. He did not take nitro today. He states his symptoms have resolved. He states he suffered a heart attack 2 years ago and he had his last cardiac cath May 2021. His oyster unloader is Dr. V[facility]quez at [facility]. Related Data Home Medications Medication Instructions Recorded Confirmed aspirin 81 mg tablet 81 mg PO DAILY 05/18/21 11/22/22 clopidogrel 75 mg tablet (Plavix) 75 mg PO DAILY 05/18/21 11/22/22 metoprolol succinate 50 mg 25 mg PO DAILY 05/18/21 11/22/22 tablet,extended release 24 hr (Toprol XL) nitroglycerin 0.4 mg sublingual 0.4 mg sublingual PRN PRN Chest 05/18/21 11/22/22 tablet (Nitrostat) Pain ranolazine 500 mg tablet,extended 500 mg PO Q12H 05/18/21 11/22/22 release,12 hr (Ranexa) rosuvastatin 20 mg tablet (Crestor) 40 mg PO HS 05/18/21 11/22/22 bupropion HCl 300 mg 24 hr tablet, 300 mg PO DAILY 06/19/22 11/22/22 extended release isosorbide mononitrate 30 mg 30 mg PO DAILY 11/22/22 11/22/22 tablet,extended release 24 hr Allergies Allergy/AdvReac Type Severity Reaction Status Date / Time No Known Allergies Allergy Verified 06/19/22 17:44 Review of Systems Constitutional: Constitutional: Denies weakness Cardiovascular: Cardiovascular: Reports chest pain, Denies syncope, Denies rapid heart rate, Denies irregular heart rhythm, Denies leg edema and Reports dyspnea Respiratory: Respiratory: Denies chest congestion, Denies hemoptysis, Denies excessive phlegm production and Denies dyspnea Gastrointestinal: Gastrointestinal: Denies abdominal pain, Denies hematochezia, Denies diarrhea and Denies vomiting Genitourinary: Genitourinary: Denies hematuria, Denies dysuria, Denies penile discharge and Denies testicular pain Musculoskeletal: Musculoskeletal: Denies joint swelling, Denies loss of height and Denies muscle weakness Neurologic: Reports dizziness, Denies syncope, Denies focal weakness and Denies weakness [facility] Past Medical History Medical History Coronary artery disease Hypertension Obstructive sleep apnea Paroxysmal atrial fibrillation Skin cancer Surgical History Surgical History History of coronary artery stent placement (02/2021) Family History Family History Father Heart disease FH: CABG (coronary artery bypass surgery) Diabetes mellitus Sibling Diabetes mellitus Mother COPD (chronic obstructive pulmonary disease) Other Skin cancer Social History Social History Social History: Surrogate medical decision maker: Deedee Yepez, spouse. Code status: Full code. Smoking status: Never smoker Alcohol intake: never Substance use: never Substance use type: does not use Lack of Transportation: No Lack of Food: Never True Current Housing: I Have Housing Concerned About Future Housing: No Difficulty Paying Gas/Electric Bills: No Difficulty Paying for Meds: No Currently Unemployed: No Education: High School Diploma/GED Diffic
[2022-11-22 02:39] LABS: Troponin I < 0.012 ng/mL (0.000-0.034)
--- NOTE | 2022-11-22 03:03 | ADMGEN ---
This patient, Rafi Yepez, was admitted to IMU Room 202-01. Patient/family oriented to hospital policies and general routines including ID bracelet, bed and alarms, visiting hours, pain management, procedures, bathroom and other care routines, personal items, smoking policy, room service/diet, and visiting hours. Information on how to activate the Rapid Response Team has been discussed. Patient/Family are encouraged to report perceived risks to care and to ask questions if they do not understand what they are told or what they should do.
[2022-11-22 05:15] LABS: Troponin I < 0.012 ng/mL (0.000-0.034)
--- NOTE | 2022-11-22 10:09 | PM.CNCAR ---
Assessment and Plan Assessment and plan (1) Chest pain: Code(s): R07.9 - Chest pain, unspecified Status: Acute (2) Coronary artery disease: Code(s): I25.10 - Atherosclerotic heart disease of [place] coronary artery without angina pectoris Status: Acute Plan This is a 52-year-old man known to have coronary disease he sustained a anterior wall mi nearly 2 years ago and was treated in [place] with emergency PCI to his proximal LAD. According to the diagram on his cellphone he was found to have some distal stenosis in the RPDA as well which apparently was a small vessel and was has been treated medically. He came into the hospital here last night in the emergency room with some on common symptoms of chest pain and shakiness. Acute coronary syndrome/AMI has been ruled out he does not have any changes in his electrocardiogram and his troponins have remained undetectable. I do not see any evidence of recurrent atrial fibrillation to explain his symptoms. In my opinion he is stable for discharge follow-up with his established registered representative at [facility]. Herb Worrell MD [facility] History of Present Illness History of Present Illness Consult date/time: 11/22/22 10:09 Reason For Visit: Chest pain Narrative: This is a 52-year-old man I am seeing at the request of the hospitalist because of chest pain. He is unknown to me prior to this encounter, he is known to have coronary artery disease with previous PA and PCI. We do have some records on him here from seeing him earlier this year. The patient was in his usual state of reasonably good health when yesterday he became concerned while he was at his home and started to experience some chest pain he describes this as a cramping like central discomfort that radiates to either side of the chest. He has the symptoms off and on for at least a couple of years now that occur in a nonexertional fashion. He has become used to this and sometimes will take a nitroglycerin tablet when this happens and sometimes he will just let it pass. Yesterday be he became more concerned when the symptoms were associated by sense of shakiness throughout his body. He was not sure if he was experiencing palpitations are not. He does have a history of having been in atrial fibrillation in the past and he was concerned about this so because of all of these issues he came to this hospital's emergency room by his private vehicle his driving him here last night in the middle of the night for evaluation. His EKG shows sinus rhythm with an incomplete right bundle branch block and is not changed from previous tracings. His troponin levels in the emergency room were negative and he was admitted to the IMU for rule out ACS. His troponin levels have remained normal x3 sets he was sleeping in bed when I came in the room to see him this morning obviously in no distress. This man has a history of coronary artery disease having presented in [place] when he lived in [facility] in 2020 with acute myocardial infarction he does have some records on his cellphone that show he acute occlusion of his proximal LAD which was stented he also had some distal disease in the RPDA that has been treated medically since then. 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 He has become established with Dr. Vázquez at [facility] for his cardiovascular care. He describes having had what sounds like a stress echo at [facility] last year with favorable results. He did have some symptoms such as this shortly after his PA and was brought back for a follow-up coronary angiogram in [place] couple of months after his original presentation and was told that his LAD was nicely patent. He remains on dual anti-platelet therapy with aspirin and clopidogrel he takes modest doses of metoprolol isosorbide and rosuvastatin. Despite the fact that his physician is not here at [facility] they
[2022-11-22] MEDS: buPROPion HCL XL (24 HR) 150 MG TABCR 300 MG PO (10:16)
[2022-11-22] MEDS: ASPIRIN 81 MG CHEWABLE TABLET PO (10:16)
[2022-11-22] MEDS: CLOPIDOGREL BISULFATE 75 MG TABLET PO (10:17)
[2022-11-22] MEDS: ISOSORBIDE MONONITRATE 30 MG TAB.ER.24H PO (10:17)
[2022-11-22] MEDS: RANOLAZINE 500 MG TAB.ER.12H PO (10:18)
[2022-11-22] MEDS: METOPROLOL SUCCINATE EXT REL 25 MG TABCR PO (10:20)
--- NOTE | 2022-11-22 12:02 | PM.DS ---
DS: Admitting Diagnosis Discharge Date 11/22/22 Admitting Diagnosis cp DS: Discharge Diagnosis Discharge Diagnosis (1) Hypertension: Code(s): I10 - Essential (primary) hypertension Status: Acute (2) Paroxysmal atrial fibrillation: Code(s): I48.0 - Paroxysmal atrial fibrillation Status: Acute (3) Chest pain: Code(s): R07.9 - Chest pain, unspecified Status: Acute DS: Summary Hospital Course Hospital Course: Admitted for chest pain. Workup negative. Cardiology consult. Okay for discharge. 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 Time Spent with Patient Time attestation: Total time spent providing and/or coordinating discharge services: Exam Const: General: comfortable, no acute distress, alert and well nourished Nutritional Appearance: well nourished Orientation/consciousness: patient oriented x3 Limitations: no limitations Other: Pleasant somewhat overweight white male no apparent distress sleeping in the right lateral decubitus position when I came in the room to see him offers no complaints upon awakening HENMT: Head: normal to inspection Face/Nose/Sinus: normal facial exam Face and sinus: normal facial exam Mouth: Yes moist mucous membranes Eyes: Sclera: sclerae normal Pupils: Equal, round and reactive pupils present EOM: EOMs intact bilaterally Neck: Neck: supple and no JVD Chest: Chest palpation & inspection: normal inspection of the chest Resp: Effort & Inspection: normal respiratory effort Auscultation: clear to auscultation bilaterally Cardio: Rate: regular rate Rhythm: regular rhythm Heart sounds: no murmurs Other: No audible gallop murmur or rub GI: Auscultation: normal bowel sounds Skin: General skin exam: normal color Rashes: no rashes Wounds: no wounds Neuro: General: patient oriented x3, moves all extremities and CN's II-XI intact bilaterally Cranial nerves: Yes Equal, round and reactive pupils present Other: Alert and oriented x3 Extrem: General: normal to inspection Other: No edema, good distal perfusion Psych: Mental Status: mental status grossly normal Affect: normal affect Attitude: cooperative DS: Data Data Completed and Pending Labs on day of discharge: Labs from last 24 hours 11/22/22 11/22/22 11/21/22 04:41 02:08 23:35 WBC 4.8 RBC 5.29 Hgb 15.5 Hct 47.8 MCV 90.4 MCH 29.3 MCHC 32.4 RDW 11.5 Plt Count 172 MPV 9.8 Immature Gran % (Auto) 0.0 Neut % (Auto) 62.4 Lymph % (Auto) 22.9 [place] % (Auto) 10.5 H Eos % (Auto) 3.8 Baso % (Auto) 0.4 Lymph # (Auto) 1.09 [place] # (Auto) 0.5 Eos # (Auto) 0.2 Baso # (Auto) 0.0 Abs Immat Gran (auto) 0.00 Absolute Neuts (auto) 3.0 Absolute Nucleated RBC 0.0 Nucleated RBC % 0.0 PT 12.9 INR 0.9 APTT 25.1 Sodium 139 Potassium 4.4 Chloride 104 Carbon Dioxide 30 Anion Gap 5 L BUN 20 Creatinine 1.20 Estim Creat Clear Calc 76 Estimated GFR > 60 Glucose 131 H Calcium 9.3 Total Bilirubin 0.5 AST 43 ALT 53 H Alkaline Phosphatase 67 Troponin I < 0.012 < 0.012 < 0.012 Total Protein 7.0 Albumin 4.2 Lipase 190 Discharge Plan Discharge Attending physician on discharge: Herb Tatum Consulting providers: Opal Anderson ; Gagan Harley Discharging Clinician: Herb Tatum Patient Disposition: Home, Self-Care Activity: as tolerated Diet: as tolerated Patient Instructions: Antibiotic Form Stand Alone Forms: General Discharge Information Follow-up/Referrals: PHYSICIAN NOT ON STAFF,NONSTAFF [Primary Care Provider] - Discharge Medications: Continued metoprolol succinate [Toprol XL] 50 mg tablet extended release 24 hr 25 mg PO DAILY clopidogrel [Plavix] 75 mg tablet 75 mg PO DAILY nitroglycerin [Nitrostat] 0.4 mg tablet, sublingual 0.4 mg sublingual PRN PRN (Reason:
--- NOTE | 2022-11-22 12:04 | PM.IMHP ---
H&P: HPI History of Present Illness Date/Time: 11/22/22 12:04 Chief Complaint: His is a 52 year old male with history of MS, CAD, stent, hyperlipidemia who presents for evaluation of chest pain.? Patient states he was in bed when he developed shakiness, chest pressure and burning pain across his chest.? He also reports he felt cold and then felt flushed. He reports these symptoms seemed to last about 45 minutes. He states he is unsure if this was due to his heart or being in a fib. He states he felt similar when he was in afib once. ? He reports he deals with angina causing his right chest pain and he has nitro at home for this. He did not take nitro today. He states his symptoms have resolved.? ? He states he suffered a heart attack 2 years ago and he had his last cardiac cath May 2021. 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 Vázquez at [facility]. Review of Systems Review of Systems: 10 point review systems negative Constitutional: Constitutional: Reports fatigue and Denies weakness Eyes: Eyes: Reports no additional eye complaints ENT: Reports system reviewed and no additional complaints, except as documented and Reports dizziness Cardiovascular: Cardiovascular: Reports as per HPI, Reports chest pain, Denies syncope, Denies rapid heart rate, Denies irregular heart rhythm, Denies leg edema, Denies dyspnea and Reports dyspnea on exertion Respiratory: Respiratory: Denies chest congestion, Denies hemoptysis, Denies excessive phlegm production, Denies dyspnea and Reports dyspnea on exertion Gastrointestinal: Gastrointestinal: Reports no additional gastrointestinal complaints, Denies abdominal pain, Denies hematochezia, Denies diarrhea and Denies vomiting Genitourinary: Genitourinary: Denies hematuria, Denies dysuria, Denies penile discharge and Denies testicular pain Musculoskeletal: Musculoskeletal: Reports no additional musculoskeletal complaints, Denies joint swelling, Denies loss of height and Denies muscle weakness Integumentary/Breasts: Skin/Breast: Reports system reviewed and no additional complaints, except as docu Neurologic: Reports system reviewed and no additional complaints, except as documented, Reports dizziness, Denies syncope, Denies focal weakness and Denies weakness Endocrine: Endocrine: Reports no additional endocrine complaints and Reports fatigue Hematologic/Lymphatic: Hematologic/Lymphatic: Reports no additional hematologic/lymphatic complaints Allergic/Immunologic: Allergic/Immunologic: Reports no additional allergic/immunologic complaints PMFSH Past Medical History Medical History Coronary artery disease Hypertension Obstructive sleep apnea Paroxysmal atrial fibrillation Skin cancer Surgical History Surgical History History of coronary artery stent placement (02/2021) Family History Family History Father Heart disease FH: CABG (coronary artery bypass surgery) Diabetes mellitus Sibling Diabetes mellitus Mother COPD (chronic obstructive pulmonary disease) Other Skin cancer Social History Social History Social History: Surrogate medical decision maker: Deedee Yepez, spouse. Code status: Full code. Smoking status: Never smoker Alcohol intake: never Substance use: never Substance use type: does not use Lack of Transportation: No Lack of Food: Never True Current Housing: I Have Housing Concerned About Future Housing: No Difficulty Paying Gas/Electric Bills: No Difficulty Paying for Meds: No Currently Unemployed: No Education: High School Diploma/GED Difficulty w/ Childcare or Family Care: No Additional living arrangements comments: Lives in [place] with spouse. Originally from [place]. Additional occupation/education comments: Works at the [employer]
== END 2022-11-22 12:50 | disposition home or self-care (01) ==
LOC: ANHED 11-22 00:19 → ANHIMU 11-22 02:34
PROVIDERS: Admitting Provider Chiropractor; Emergency Provider General Practice; Visit Provider Chiropractor
DX: R07.89 Other chest pain (principal); I10 Essential (primary) hypertension; R25.1 Tremor, unspecified; R23.2 Flushing; R68.83 Chills (without fever); I25.10 Atherosclerotic heart disease of native coronary artery without angina pectoris; G47.33 Obstructive sleep apnea (adult) (pediatric); Z95.5 Presence of coronary angioplasty implant and graft; I48.0 Paroxysmal atrial fibrillation; I45.10 Unspecified right bundle-branch block; R94.31 Abnormal electrocardiogram [ECG] [EKG]; I25.2 Old myocardial infarction; Z85.828 Personal history of other malignant neoplasm of skin; Z79.82 Long term (current) use of aspirin; Z79.02 Long term (current) use of antithrombotics/antiplatelets; Z79.899 Other long term (current) drug therapy; Z80.8 Family history of malignant neoplasm of other organs or systems
CPT/HCPCS: 36415; 71046; 80053; 83690; 84484; 85025; 85610; 85730; 93005; 99285; A9270; G0378

== ENCOUNTER 2022-12-25 15:31 | Observation (INO) | payer BC, SELFPAY ==
[2022-12-25] VITALS (47 sets, daily range): BP systolic 99–130; BP diastolic 60–92; PULSE 53–86; RESP 9–25; TEMP 36.4; O2SAT 94–100
--- NOTE | ~2022-12-25 | XR_ITS ---
EXAMINATION: XR chest 2V Exam Date/Time: 12/25/2022 15:55 CDT HISTORY: INTERMITTENT MID CHEST PAIN X 3-4 DAYS Comparison: 11/21/2022. RESULT: Lines, tubes, and devices: None. Lungs and pleura: Clear. Cardiomediastinal silhouette: Stable. Other: No acute osseous or upper abdominal finding. IMPRESSION: No acute cardiopulmonary process. Reviewed, dictated and finalized at location K.
--- NOTE | 2022-12-25 15:39 | ECG_ITS ---
Measurements Intervals [place] Rate: 81 P: 56 MI: 138 QRS: -7 QRSD: 103 T: 41 QT: 384 QTc: 448 Interpretive Statements SINUS RHYTHM INCOMPLETE RIGHT BUNDLE BRANCH BLOCK BASELINE ARTIFACT- V3 BORDERLINE ECG COMPARED TO ECG 11/21/2022 23:06:54 NO SIGNIFICANT CHANGES Electronically Signed On 12-26-2022 6:22:41 CDT by Carlton Clement D.O.
[2022-12-25 15:57] LABS: Basophils Percent Auto 0.4 % (0.2-1.2); Eosinophils Absolute Auto 0.1 K/mm3 (0-0.3); Eosinophils Percent Auto 1.2 % (0-4.4); Hematocrit 49.4 % (42.0-52.0); Hemoglobin 16.6 g/dL (14.0-18.0); Immature Granulocyte Absolute 0.02 K/mm3 (0.00-0.031); Immature Granulocyte Percent A 0.3 % (0-0.5); Lymphocytes Absolute Auto 1.51 K/mm3 (0.9-3.2); Lymphocytes Percent Auto 19.5 % (18.3-44.2); Mean Corpuscular HGB Conc 33.6 g/dl (32-36); Mean Corpuscular Hemoglobin 29.7 pg (26-34); Mean Corpuscular Volume 88.4 fl (80-100); Mean Platelet Volume 9.7 fl (7.4-10.4); Monocytes Absolute Auto 0.8 K/mm3 (0.1-0.6); Monocytes Percent Auto 10.7 % (2.6-8.5); Neutrophils Absolute Auto 5.3 K/mm3 (1.3-6.7); Neutrophils Percent Auto 67.9 % (45.5-73.1); Platelet Count Result 203 k/mm3 (150-375); Red Blood Count 5.59 M/mm3 (4.6-6.20); Red Cell Distribution Width 11.4 % (11.5-14.5); White Blood Count 7.7 K/mm3 (4.5-10.0)
[2022-12-25 16:07] LABS: Partial Thromboplastin Time 25.2 SECONDS (22.3-36.8); Prothrombin Time 13.3 Seconds (11.1-14.7)
[2022-12-25 16:09] LABS: Alanine Aminotransferase 41 U/L (6-50); Albumin Level 4.8 g/dL (3.5-5.1); Alkaline Phosphatase 78 U/L (38-126); Anion Gap 13 mmol/L (8-16); Aspartate Amino Transferase 31 U/L (17-59); Blood Urea Nitrogen 18 mg/dL (9-20); Calcium 9.5 mg/dL (8.4-10.2); Carbon Dioxide 25 mmol/L (22-30); Chloride 104 mmol/L (98-107); Estimated CRCL calculation 80 ml/min; Estimated Glomerular Filt Rate > 60; Glucose 98 mg/dL (65-110); Lipase 108 U/L (23-300); Potassium 4.1 mmol/L (3.4-5.0); Sodium 142 mmol/L (137-145)
[2022-12-25 16:20] LABS: Troponin I < 0.012 ng/mL (0.000-0.034)
--- NOTE | 2022-12-25 17:59 | PC.NURSE ---
pt states upper chest burning was 5/10 at home now /10.
[2022-12-25] MEDS: ASPIRIN 81 MG CHEWABLE TABLET 324 MG PO (18:04)
--- NOTE | 2022-12-25 18:49 | ED.CHESTPAIN ---
HPI - Chest Pain General Chief Complaint: Chest Pain Stated Complaint: chest pain Time Seen by Provider: 12/25/22 18:34 History of Present Illness HPI narrative: This is a 52-year-old male, status post MD 2 years ago hypoxia status post stent placement in LAD, who presents to the emergency department complaining of pressure-like chest pain for the past 4 days, worse today. The patient states approximately 3 weeks ago his isosorbide prescription changed from twice a day to daily. Today, he complained of pressure and occasional burning-like chest pain, rated 4/10 that lasted longer than usual. His pain began while at rest (driving). It was associated with nausea, some lightheadedness and dry mouth. He states it has since resolved. Related Data Home Medications Medication Instructions Recorded Confirmed aspirin 81 mg tablet 81 mg PO DAILY 05/18/21 12/23/22 clopidogrel 75 mg tablet (Plavix) 75 mg PO DAILY 05/18/21 12/23/22 metoprolol succinate 50 mg 25 mg PO DAILY 05/18/21 12/23/22 tablet,extended release 24 hr (Toprol XL) nitroglycerin 0.4 mg sublingual 0.4 mg sublingual PRN PRN Chest 05/18/21 12/23/22 tablet (Nitrostat) Pain ranolazine 500 mg tablet,extended 500 mg PO Q12H 05/18/21 12/23/22 release,12 hr (Ranexa) rosuvastatin 20 mg tablet (Crestor) 40 mg PO HS 05/18/21 12/23/22 bupropion HCl 300 mg 24 hr tablet, 300 mg PO DAILY 06/19/22 12/23/22 extended release isosorbide mononitrate 30 mg 30 mg PO DAILY 11/22/22 12/23/22 tablet,extended release 24 hr Allergies Allergy/AdvReac Type Severity Reaction Status Date / Time No Known Allergies Allergy Verified 12/25/22 18:01 Review of Systems Review of Systems: CONSTITUTIONAL: Denies fever, chills, or sweats. CARDIOVASCULAR: Chest pain denies palpitations, or edema. RESPIRATORY: Denies cough or dyspnea. GASTROINTESTINAL: Nausea denies abdominal pain, vomiting, or diarrhea. GENITOURINARY: Denies dysuria or hematuria. SKIN: Denies rash or itching. MUSCULOSKELETAL: Denies back pain, joint pain, or myalgia. NEUROLOGIC: Lightheadedness denies headache, numbness, or weakness. PSYCHIATRIC: Denies anxiety or depression. [facility] Past Medical History Medical History Coronary artery disease Hypertension Obstructive sleep apnea Paroxysmal atrial fibrillation Skin cancer Surgical History Surgical History History of coronary artery stent placement (02/2021) Family History Family History Father Heart disease FH: CABG (coronary artery bypass surgery) Diabetes mellitus Sibling Diabetes mellitus Mother COPD (chronic obstructive pulmonary disease) Other Skin cancer Social History Social History Social History: Surrogate medical decision maker: Deedee Yepez, spouse. Code status: Full code. Smoking status: Never smoker Alcohol intake: never Substance use: never Substance use type: does not use Lack of Transportation: No Lack of Food: Never True Current Housing: I Have Housing Concerned About Future Housing: No Difficulty Paying Gas/Electric Bills: No Difficulty Paying for Meds: No Currently Unemployed: No Education: High School Diploma/GED Difficulty w/ Childcare or Family Care: No Additional living arrangements comments: Lives in [place] with spouse. Originally from [place]. Additional occupation/education comments: Works at the [employer]. Spiritual care concerns: No Exam Narrative: GENERAL: Well-developed, well-nourished, and in no acute distress. HEAD: Normocephalic, atraumatic. EYES: PERRLA and EOMI. NECK: Supple. No JVD CHEST: Clear to auscultation. No respiratory distress. No wheezes rales or rhonchi HEART: Regular rate and rhythm. No murmur heard. Normal p
[2022-12-25 20:08] LABS: Troponin I < 0.012 ng/mL (0.000-0.034)
[2022-12-26] VITALS (12 sets, daily range): BP systolic 98–125; BP diastolic 58–69; PULSE 55–73; RESP 16–20; TEMP 35.6–36.8; O2SAT 96–98; BMI 34.2
--- NOTE | 2022-12-26 00:47 | ADMGEN ---
This patient, Rafi Yepez, was admitted to IMU Room 213-01. Patient/family oriented to hospital policies and general routines including ID bracelet, bed and alarms, visiting hours, pain management, procedures, bathroom and other care routines, personal items, smoking policy, room service/diet, and visiting hours. Information on how to activate the Rapid Response Team has been discussed. Patient/Family are encouraged to report perceived risks to care and to ask questions if they do not understand what they are told or what they should do.
[2022-12-26 01:09] LABS: Troponin I < 0.012 ng/mL (0.000-0.034)
[2022-12-26 04:55] LABS: Basophils Percent Auto 0.2 % (0.2-1.2); Eosinophils Absolute Auto 0.2 K/mm3 (0-0.3); Eosinophils Percent Auto 2.5 % (0-4.4); Hematocrit 45.4 % (42.0-52.0); Immature Granulocyte Absolute 0.02 K/mm3 (0.00-0.031); Immature Granulocyte Percent A 0.3 % (0-0.5); Lymphocytes Percent Auto 23.8 % (18.3-44.2); Mean Corpuscular Hemoglobin 29.1 pg (26-34); Mean Corpuscular Volume 88.2 fl (80-100); Mean Platelet Volume 9.9 fl (7.4-10.4); Monocytes Absolute Auto 0.8 K/mm3 (0.1-0.6); Neutrophils Absolute Auto 3.8 K/mm3 (1.3-6.7); Neutrophils Percent Auto 60.2 % (45.5-73.1); Platelet Count Result 165 k/mm3 (150-375); Red Blood Count 5.15 M/mm3 (4.6-6.20); Red Cell Distribution Width 11.4 % (11.5-14.5); White Blood Count 6.3 K/mm3 (4.5-10.0)
[2022-12-26 05:04] LABS: Anion Gap 8 mmol/L (8-16); Blood Urea Nitrogen 18 mg/dL (9-20); Calcium 8.6 mg/dL (8.4-10.2); Carbon Dioxide 27 mmol/L (22-30); Chloride 103 mmol/L (98-107); Estimated CRCL calculation 99 ml/min; Estimated Glomerular Filt Rate > 60; Glucose 99 mg/dL (65-110); Potassium 3.7 mmol/L (3.4-5.0); Sodium 138 mmol/L (137-145)
[2022-12-26] MEDS: ROSUVASTATIN 20 MG TABLET 40 MG PO (08:16)
[2022-12-26] MEDS: METOPROLOL SUCCINATE EXT REL 25 MG TABCR PO (08:16)
[2022-12-26] MEDS: buPROPion HCL XL (24 HR) 150 MG TABCR 300 MG PO (08:17)
--- NOTE | 2022-12-26 11:25 | PM.IMHP ---
H&P: HPI History of Present Illness Date/Time: 12/26/22 11:25 Chief Complaint: This is a 52-year-old male, status post [place] 2 years ago hypoxia status post stent placement in LAD, who presents to the emergency department complaining of pressure-like chest pain for the past 4 days, worse today.? The patient states approximately 3 weeks ago his isosorbide prescription changed from twice a day to daily.? Today, he complained of pressure and occasional burning-like chest pain, rated 4/10 that lasted longer than usual.? His pain began while at rest (driving).? It was associated with nausea, some lightheadedness and dry mouth.? He states it has since resolved. Review of Systems Review of Systems: 10 point ROS negative except as stated in HPI / Subjective PMFSH Past Medical History Medical History Coronary artery disease Hypertension Obstructive sleep apnea Paroxysmal atrial fibrillation Skin cancer Surgical History Surgical History History of coronary artery stent placement (02/2021) Family History Family History Father Heart disease FH: CABG (coronary artery bypass surgery) Diabetes mellitus Sibling Diabetes mellitus Mother COPD (chronic obstructive pulmonary disease) Other Skin cancer Social History Social History Social History: Surrogate medical decision maker: Deedee Yepez, spouse. Code status: Full code. Smoking status: Never smoker Alcohol intake: never Substance use: current Substance use type: does not use Lack of Transportation: No Lack of Food: Never True Current Housing: I Have Housing Concerned About Future Housing: No Difficulty Paying Gas/Electric Bills: No Difficulty Paying for Meds: No Currently Unemployed: No Education: Bachelor's Degree Difficulty w/ Childcare or Family Care: No Additional living arrangements comments: Lives in [place] with spouse. Originally from [place]. Additional occupation/education comments: Works at the [email or web address]. Spiritual care concerns: No Meds Home Medications and Allergies Home Medications Medication Instructions Recorded Confirmed Type aspirin 81 mg tablet 81 mg PO DAILY 05/18/21 12/26/22 History clopidogrel 75 mg tablet (Plavix) 75 mg PO DAILY 05/18/21 12/26/22 History metoprolol succinate 50 mg 25 mg PO DAILY 05/18/21 12/26/22 History tablet,extended release 24 hr (Toprol XL) nitroglycerin 0.4 mg sublingual 0.4 mg sublingual PRN PRN Chest 05/18/21 12/26/22 History tablet (Nitrostat) Pain ranolazine 500 mg tablet,extended 500 mg PO Q12H 05/18/21 12/26/22 History release,12 hr (Ranexa) rosuvastatin 20 mg tablet (Crestor) 40 mg PO HS 05/18/21 12/26/22 History bupropion HCl 300 mg 24 hr tablet, 300 mg PO DAILY 06/19/22 12/26/22 History extended release isosorbide mononitrate 30 mg 30 mg PO DAILY 11/22/22 12/26/22 History tablet,extended release 24 hr Allergies Allergy/AdvReac Type Severity Reaction Status Date / Time No Known Allergies Allergy Verified 12/25/22 18:01 Vital Signs Vital Signs - 24 hr 12/25/22 15:39 12/25/22 17:52 12/25/22 17:53 Temperature 97.5 F L Pulse Rate 86 59 L Respiratory Rate 16 25 H 16 Blood Pressure 124/88 124/83 Pulse Oximetry 100 99 100 Oxygen Delivery 12/25/22 18:00 12/25/22 18:01 12/25/22 18:15 Temperature Pulse Rate 64 72 73 Respiratory Rate 16 10 L 15 Blood Pressure 130/92 H Pulse Oximetry 98 100 99 Oxygen Delivery 12/25/22 18:16 12/25/22 18:30 12/25/22 18:31 Temperature Pulse Rate 68 70 67 Respiratory Rate 12 11 L 11 L Blood Pressure 120/85 124/83 Pulse Oximetry 98 100 96 Oxygen Delivery 12/25/22 18:45 12/25/22 18:46 12/25/22 19:00 Temperature Pulse Rate 66
[2022-12-26] MEDS: ACETAMINOPHEN 325 MG TABLET 650 MG PO (12:00)
--- NOTE | 2022-12-26 15:00 | PM.CNCAR ---
Assessment and Plan Assessment and plan (1) Chest pain: Code(s): R07.9 - Chest pain, unspecified Status: Acute (2) Coronary artery disease: Code(s): I25.10 - Atherosclerotic heart disease of [place] coronary artery without angina pectoris Status: Acute Plan This is a 52-year-old man with known coronary disease he underwent emergency LAD intervention back in [address] of [place]-elevation VT. He has done well since then. He has had a number of hospitalizations both in [place] following the event and several times here with symptoms of chest pain but has never had evidence of an acute coronary syndrome since his original PCI. He is symptoms are not exertional and therefore very atypical of angina. Once again there is no objective evidence of acute myocardial injury. Believe he can be discharged and followed up as an outpatient. The patient states that this time it is his desire to become established with our practice for ongoing care and follow-up. That being the case I will see that he gets a follow-up in our office and relatively short interval. It is certainly possible that the stress of a family member has created some of the symptoms as described above. Herb Worrell MD [facility] History of Present Illness History of Present Illness Consult date/time: 12/26/22 15:00 Reason For Visit: Unstable angina Narrative: This is a 52-year-old man I am seeing today at the request of the hospitalist because of chest pain. He is known to me from a recent consultation here at [facility] with chest pain as well. He feels well at this time and denies any complaints. The patient says he was in his usual state of health yesterday when he started to have some central retrosternal squeezing like chest discomfort that tends to occur off and on in an unpredictable/nonexertional fashion. He is used to having these symptoms periodically since his history of heart disease was identified a couple of years ago. When the episodes are more severe or more sustained he tends to come into the hospital for evaluation. Since being is seen in the emergency room and after admission his electrocardiograms showed no evidence of ischemia or injury and his troponin levels are normal x3 sets. He is known to have coronary disease having presented in [facility] in 2020 with acute anterior wall VT. He underwent emergency PCI of the proximal LAD at that time with good anatomic result and with very little if any permanent myocardial injury. Since then he relocated to this area for change in jobs. 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 He does not have any symptoms with exertion such as chest pain shortness of breath orthopnea PND or edema. He does have these episodes of chest discomfort periodically which have caused him to come to the emergency room on a number of occasions. After relocating to this vicinity he became established with a operations intelligence superintendent at [facility] for ongoing care and follow-up. He did have an exercise stress echo last year at the time of that appointment which was negative. Following his angiogram in 2020 he did have also a follow-up coronary angiogram in [place] as he was having episodes of chest pain that showed that he remained to be well revascularized. The angiograms did show some very small vessel disease in the distal aspect of his RPDA which was not amenable to percutaneous revascularization. His medical regimen consists of aspirin, clopidogrel, isosorbide, metoprolol and rosuvastatin he also takes Ranexa 500 mg q.12 hours. Patient's points out that within the last 48 hours her sister lives in the [place] area became critically ill was hospitalized and . They both found this very stressful and were wondering if this could be potentially the trigger of some of the symptom Review of Systems Constitutional: Constitutional: Reports no additional cons
--- NOTE | 2022-12-26 15:13 | PM.DS ---
DS: Admitting Diagnosis Discharge Date 12/26/22 Admitting Diagnosis cp DS: Discharge Diagnosis Discharge Diagnosis (1) Unstable angina: Code(s): I20.0 - Unstable angina Status: Acute Assessment and Plan: minimal cp today await cardiology eval vss trop noted DS: Summary Hospital Course Hospital Course: admitted for cp, cardiology evaluated patient = negative karlene mahoney with cardiology Time Spent with Patient Time attestation: Total time spent providing and/or coordinating discharge services: Exam Narrative: General: alert and oriented Psych: appropriate mood nad affect Eyes: PERRLA Neck: Trachea midline, no new lesions Skin: no changes Lungs: CTA Cardiac: Normal S1,S2, no MGR ABD: soft, nd, nt, nbs Ext: no new lesions, no cce Vasc: Pulses intact DS: Data Data Completed and Pending Labs on day of discharge: Labs from last 24 hours 12/26/22 12/26/22 12/25/22 04:42 00:37 18:48 WBC 6.3 RBC 5.15 Hgb 15.0 Hct 45.4 MCV 88.2 MCH 29.1 MCHC 33.0 RDW 11.4 L Plt Count 165 MPV 9.9 Immature Gran % (Auto) 0.3 Neut % (Auto) 60.2 Lymph % (Auto) 23.8 [place] % (Auto) 13.0 H Eos % (Auto) 2.5 Baso % (Auto) 0.2 Lymph # (Auto) 1.50 [place] # (Auto) 0.8 H Eos # (Auto) 0.2 Baso # (Auto) 0.0 Abs Immat Gran (auto) 0.02 Absolute Neuts (auto) 3.8 Absolute Nucleated RBC 0.0 Nucleated RBC % 0.0 PT INR APTT Sodium 138 Potassium 3.7 Chloride 103 Carbon Dioxide 27 Anion Gap 8 BUN 18 Creatinine 0.90 Estim Creat Clear Calc 99 Estimated GFR > 60 Glucose 99 Calcium 8.6 Total Bilirubin AST ALT Alkaline Phosphatase Troponin I < 0.012 < 0.012 Total Protein Albumin Lipase 12/25/22 15:51 WBC 7.7 RBC 5.59 Hgb 16.6 Hct 49.4 MCV 88.4 MCH 29.7 MCHC 33.6 RDW 11.4 L Plt Count 203 MPV 9.7 Immature Gran % (Auto) 0.3 Neut % (Auto) 67.9 Lymph % (Auto) 19.5 [place] % (Auto) 10.7 H Eos % (Auto) 1.2 Baso % (Auto) 0.4 Lymph # (Auto) 1.51 [place] # (Auto) 0.8 H Eos # (Auto) 0.1 Baso # (Auto) 0.0 Abs Immat Gran (auto) 0.02 Absolute Neuts (auto) 5.3 Absolute Nucleated RBC 0.0 Nucleated RBC % 0.0 PT 13.3 INR 1.0 APTT 25.2 Sodium 142 Potassium 4.1 Chloride 104 Carbon Dioxide 25 Anion Gap 13 BUN 18 Creatinine 1.00 Estim Creat Clear Calc 80 Estimated GFR > 60 Glucose 98 Calcium 9.5 Total Bilirubin 1.0 AST 31 ALT 41 Alkaline Phosphatase 78 Troponin I < 0.012 Total Protein 8.0 Albumin 4.8 Lipase 108 Discharge Plan Discharge Attending physician on discharge: Herb Tatum Consulting providers: Opal Anderson; Nathaly Mathis Discharging Clinician: Herb Tatum Patient Disposition: Home, Self-Care Activity: as tolerated Diet: as tolerated Patient Instructions: Antibiotic Form, Chest Pain (DC) Stand Alone Forms: General Discharge Information Follow-up/Referrals: Nathaly Mathis DO [Physician] - Discharge Medications: Continued metoprolol succinate [Toprol XL] 50 mg tablet extended release 24 hr 25 mg PO DAILY clopidogrel [Plavix] 75 mg tablet 75 mg PO DAILY nitroglycerin [Nitrostat] 0.4 mg tablet, sublingual 0.4 mg sublingual PRN PRN (Reason: Chest Pain) aspirin 81 mg Tablet 81 mg PO DAILY rosuvastatin [Crestor] 20 mg tablet 40 mg PO HS ranolazine [Ranexa] 500 mg tablet extended release 12 hr 500 mg PO Q12H bupropion HCl 300 mg tablet extended release 24 hr 300 mg PO DAILY isosorbide mononitrate 30 mg tablet extended release 24 hr 30 mg PO DAILY Date of admission: 12/25/22 21:34 Primary Care Provider: Carrie,Ezio Hernandez Admitting Provider: Ana Luisa Cormier Attending physician on admission: Ana Luisa Cormier Condition: Serious
== END 2022-12-26 16:05 | disposition home or self-care (01) ==
LOC: ANHED 21:49 → ANHIMU 23:50
PROVIDERS: Emergency Medicine; Admitting Provider Chiropractor; Emergency Provider Preventive Medicine Aerospace Medicine; PCP Internal Medicine Cardiovascular Disease; Visit Provider Chiropractor
DX: I25.110 Atherosclerotic heart disease of native coronary artery with unstable angina pectoris (principal); Z95.5 Presence of coronary angioplasty implant and graft; I25.2 Old myocardial infarction; R11.0 Nausea; R42 Dizziness and giddiness; I45.10 Unspecified right bundle-branch block; I10 Essential (primary) hypertension; G47.33 Obstructive sleep apnea (adult) (pediatric); I48.0 Paroxysmal atrial fibrillation; Z82.49 Family history of ischemic heart disease and other diseases of the circulatory system; Z79.82 Long term (current) use of aspirin; Z79.01 Long term (current) use of anticoagulants; Z79.899 Other long term (current) drug therapy
CPT/HCPCS: 36415; 71046; 80048; 80053; 83690; 84484; 85025; 85610; 85730; 93005; 99285; A9270; G0378

== ENCOUNTER 2023-01-17 22:20 | Emergency (ER) | payer BC, SELFPAY ==
--- NOTE | ~2023-01-17 | XR_ITS ---
EXAMINATION: XR chest 2V DATE: 01/17/2023 23:31 INDICATION: Right chest pain. TECHNIQUE: Frontal and lateral views of the chest were obtained. COMPARISON: Chest 2 views 12/25/2022 FINDINGS: There is no pneumonia, pleural effusion, or pneumothorax. The heart size is normal. There i s an old healed fracture of left clavicle. IMPRESSION: 1. No acute cardiopulmonary disease. Reviewed, dictated and finalized at location E.
[2023-01-17 22:39] VITALS: BP 121/85; PULSE 78; RESP 18; TEMP 36.5; O2SAT 96
--- NOTE | 2023-01-17 23:01 | ECG_ITS ---
Measurements Intervals [place] Rate: 63 P: 19 MD: 120 QRS: -24 QRSD: 107 T: 29 QT: 404 QTc: 417 Interpretive Statements SINUS RHYTHM BORDERLINE LEFT AXIS DEVIATION [QRS AXIS < -20] INCOMPLETE RIGHT BUNDLE BRANCH BLOCK [90+ ms QRS DURATION, TERMINAL R IN V1/V2, 40+ ms S IN I/aVL/V4/V5/V6] COMPARED TO ECG 12/25/2022 15:35:44 NO SIGNIFICANT CHANGES Electronically Signed On 01-18-2023 15:42:03 CDT by Fatou Irwin M.D.
[2023-01-17 23:25] VITALS: BP 120/76; PULSE 73; RESP 15; O2SAT 98
[2023-01-17 23:31] LABS: Basophils Percent Auto 0.2 % (0.2-1.2); Eosinophils Absolute Auto 0.1 K/mm3 (0-0.3); Hematocrit 44.4 % (42.0-52.0); Hemoglobin 14.8 g/dL (14.0-18.0); Immature Granulocyte Absolute 0.03 K/mm3 (0.00-0.031); Immature Granulocyte Percent A 0.3 % (0-0.5); Lymphocytes Absolute Auto 1.09 K/mm3 (0.9-3.2); Lymphocytes Percent Auto 10.9 % (18.3-44.2); Mean Corpuscular HGB Conc 33.3 g/dl (32-36); Mean Corpuscular Hemoglobin 29.6 pg (26-34); Mean Corpuscular Volume 88.8 fl (80-100); Mean Platelet Volume 9.9 fl (7.4-10.4); Monocytes Absolute Auto 0.9 K/mm3 (0.1-0.6); Neutrophils Absolute Auto 7.8 K/mm3 (1.3-6.7); Neutrophils Percent Auto 78.6 % (45.5-73.1); Platelet Count Result 169 k/mm3 (150-375); Red Cell Distribution Width 11.7 % (11.5-14.5)
[2023-01-17 23:44] LABS: Partial Thromboplastin Time 25.8 SECONDS (22.3-36.8)
[2023-01-17 23:45] LABS: Alanine Aminotransferase 56 U/L (6-50); Albumin Level 4.1 g/dL (3.5-5.1); Alkaline Phosphatase 66 U/L (38-126); Anion Gap 6 mmol/L (8-16); Aspartate Amino Transferase 37 U/L (17-59); Bilirubin,Total 0.6 mg/dL (0.2-1.3); Blood Urea Nitrogen 22 mg/dL (9-20); Calcium 8.8 mg/dL (8.4-10.2); Carbon Dioxide 27 mmol/L (22-30); Chloride 105 mmol/L (98-107); Estimated CRCL calculation 90 ml/min; Estimated Glomerular Filt Rate > 60; Glucose 110 mg/dL (65-110); Lipase 135 U/L (23-300); Sodium 138 mmol/L (137-145)
[2023-01-17 23:51] LABS: D Dimer 0.29 ug/mL (<0.48)
[2023-01-17 23:57] LABS: Troponin I < 0.012 ng/mL (0.000-0.034)
[2023-01-18 00:15] VITALS: BP 113/67; PULSE 60; RESP 16; O2SAT 94
[2023-01-18 01:18] VITALS: BP 117/79; PULSE 58; RESP 14; O2SAT 95
--- NOTE | 2023-01-18 01:39 | ED.CHESTPAIN ---
HPI - Chest Pain General Chief Complaint: Chest Pain Stated Complaint: CHEST PAIN Time Seen by Provider: 01/17/23 22:30 History of Present Illness HPI narrative: Patient presents to the emergency department with an acute episode of right-sided chest discomfort diaphoresis and not feeling right. He has had multiple episodes since getting a stent placed in the right side of his heart 2 years ago. Due to symptoms he had a second cardiac cath that showed patent stent. Vessels of distal occlusion that could not be stented. Patient has also been on medications for his symptoms and been told it could be anxiety. He has been on BuSpar. He states tonight his symptoms were persistent for an hour before coming for a further evaluation Related Data Home Medications Medication Instructions Recorded Confirmed aspirin 81 mg tablet 81 mg PO DAILY 05/18/21 12/26/22 clopidogrel 75 mg tablet (Plavix) 75 mg PO DAILY 05/18/21 12/26/22 metoprolol succinate 50 mg 25 mg PO DAILY 05/18/21 12/26/22 tablet,extended release 24 hr (Toprol XL) nitroglycerin 0.4 mg sublingual 0.4 mg sublingual PRN PRN Chest 05/18/21 12/26/22 tablet (Nitrostat) Pain ranolazine 500 mg tablet,extended 500 mg PO Q12H 05/18/21 12/26/22 release,12 hr (Ranexa) rosuvastatin 20 mg tablet (Crestor) 40 mg PO HS 05/18/21 12/26/22 bupropion HCl 300 mg 24 hr tablet, 300 mg PO DAILY 06/19/22 12/26/22 extended release isosorbide mononitrate 30 mg 30 mg PO DAILY 11/22/22 12/26/22 tablet,extended release 24 hr Allergies Allergy/AdvReac Type Severity Reaction Status Date / Time No Known Allergies Allergy Verified 12/25/22 18:01 Review of Systems Review of Systems: Review of systems negative except what is documented in the HPI [facility] Past Medical History Medical History Coronary artery disease Hypertension Obstructive sleep apnea Paroxysmal atrial fibrillation Skin cancer Surgical History Surgical History History of coronary artery stent placement (02/2021) Family History Family History Father Heart disease FH: CABG (coronary artery bypass surgery) Diabetes mellitus Sibling Diabetes mellitus Mother COPD (chronic obstructive pulmonary disease) Other Skin cancer Social History Social History Social History: Surrogate medical decision maker: Deedee Yepez, spouse. Code status: Full code. Smoking status: Never smoker Alcohol intake: never Substance use: current Substance use type: does not use Lack of Transportation: No Lack of Food: Never True Current Housing: I Have Housing Concerned About Future Housing: No Difficulty Paying Gas/Electric Bills: No Difficulty Paying for Meds: No Currently Unemployed: No Education: Bachelor's Degree Difficulty w/ Childcare or Family Care: No Additional living arrangements comments: Lives in [place] with spouse. Originally from [place]. Additional occupation/education comments: Works at the [employer]. Spiritual care concerns: No Exam Narrative: GENERAL: Well-appearing, well-nourished, and in no acute distress. HEAD: Normocephalic, atraumatic. EYES: PERRLA and EOMI. ENT: Nares clear, no rhinorrhea or epistaxis. Mucous membranes moist. NECK: Supple. CHEST: Clear to auscultation. No respiratory distress. HEART: Regular rate and rhythm. ABDOMEN: Soft, nontender, nondistended. EXTREMITIES: Normal range of motion. No edema. SKIN: Warm, dry, no rash. NEURO: No focal deficits. Alert and oriented x3. PSYCH: Normal mood and affect. Course Course Emergency Course: Patient has had a stent placed in his follow-up cardiac cath was unremarkable. Troponins are always normal when he presents to the emergency department. High c
[2023-01-18 02:35] VITALS: BP 125/90; PULSE 57; RESP 14; O2SAT 97
[2023-01-18 02:42] LABS: Troponin I < 0.012 ng/mL (0.000-0.034)
[2023-01-18 03:30] VITALS: BP 111/75; PULSE 51; RESP 16; O2SAT 100
== END 2023-01-18 03:30 | disposition home or self-care (01) ==
PROVIDERS: Emergency Provider Emergency Medicine; PCP Internal Medicine Cardiovascular Disease
DX: R07.89 Other chest pain (principal); I25.10 Atherosclerotic heart disease of native coronary artery without angina pectoris; I10 Essential (primary) hypertension; I48.0 Paroxysmal atrial fibrillation; G47.33 Obstructive sleep apnea (adult) (pediatric); Z85.828 Personal history of other malignant neoplasm of skin; Z95.5 Presence of coronary angioplasty implant and graft; Z79.82 Long term (current) use of aspirin
CPT/HCPCS: 36415; 71046; 80053; 83690; 84484; 85025; 85380; 85610; 85730; 93005; 99284

== ENCOUNTER 2023-07-15 16:10 | Observation (INO) | payer OTHER, SELFPAY ==
[2023-07-15] VITALS (21 sets, daily range): BP systolic 106–137; BP diastolic 70–86; PULSE 67–93; RESP 11–24; TEMP 36.4–36.8; O2SAT 91–98; BMI 34.1
--- NOTE | ~2023-07-15 | NM_ITS ---
EXAMINATION: NM zainab stress w perfusion DATE: 07/17/2023 10:51 INDICATION: Chest pain. Coronary atherosclerosis. TECHNIQUE: Rest images were obtained following intravenous administration of 9.9 mCi Tc99m tetrofosmi n (Myoview). The patient was infused intravenously with Lexiscan (regadenoson). Then, 33.0 mCi Tc99m tetrofosmin (Myoview) was administered intravenously, and supine and prone stress images were obtaine d. Data was reconstructed into short axis and horizontal and vertical long axis SPECT images. Gated S PECT images were also obtained. COMPARISON: None. FINDINGS: There is a small, mild, fixed perfusion defect involving mid to basal inferolateral segment s of left ventricle, consistent with infarct. No reversible component to suggest ischemia. There is no segmental wall motion abnormality. Left ventricular ejection fraction measures >70%. IMPRESSION: 1. Small area of mild infarct involving mid to basal inferolateral segments of left ventricle. 2. Normal left ventricular ejection fraction measuring >70%. Reviewed, dictated and finalized at location A.
--- NOTE | ~2023-07-15 | XR_ITS ---
EXAMINATION: XR chest 2V DATE: 07/15/2023 16:37 INDICATION: Chest pain. TECHNIQUE: Frontal and lateral views of the chest were obtained. COMPARISON: Chest 2 views 01/17/2023 FINDINGS: There is no pneumonia, pleural effusion, or pneumothorax. The heart size is normal. There i s an old healed fracture of left clavicle. IMPRESSION: 1. No acute cardiopulmonary disease. Reviewed, dictated and finalized at location A.
--- NOTE | 2023-07-15 16:13 | ECG_ITS ---
Measurements Intervals [place] Rate: 91 P: 48 CO: 131 QRS: -44 QRSD: 112 T: 52 QT: 382 QTc: 470 Interpretive Statements SINUS RHYTHM VENTRICULAR PREMATURE COMPLEX LEFT AXIS DEVIATION INCOMPLETE RIGHT BUNDLE BRANCH BLOCK CONSIDER INFERIOR INFARCT, AGE INDETERMINATE ABNORMAL ECG COMPARED TO ECG 01/17/2023 23:17:26 NO SIGNIFICANT CHANGES Electronically Signed On 07-15-2023 17:12:25 CDT by Carlton Clement D.O.
--- NOTE | 2023-07-15 17:39 | ED.CHESTPAIN ---
HPI - Chest Pain General Chief Complaint: Chest Pain <KAREN Montoya Last Filed: 07/15/23 17:51> Stated Complaint: chest pain <KAREN Montoya Last Filed: 07/15/23 17:51> Time Seen by Provider: 07/15/23 17:39 <KAREN Montoya Last Filed: 07/15/23 17:51> Focused HPI: Patient is a 52 y/o male, with PMH of CAD s/p [place] February 2022, pAFIB on Plavix and ASA, prediabetes, HTN, HLD, who presents to the ED with c/o R sided CP. Patient reports he was at work today when he began feeling palpitations and quick jabs of pain in his R sided chest around 4pm. States the palpitations were intermittent and he would feel discomfort in his R sided chest afterwards. He felt dizzy, diaphoretic, short of breath, and anxious with the pains. He then drove himself here. He states he has not had any further palpitations or jabs of pain since being in the ED, but does c/o burning and soreness in his chest currently. He has had similar palpitations in the past, but have never lasted quite so long. Denies vomiting, BLE pain or swelling, syncope, abdominal pain. Patient sees Dr. Worrell with Cardiology. Had an appt 2 days ago and everything was normal at that time. Scheduled for OP nuclear stress scheduled here for 08/09. GENERAL: Well-appearing, obese with BMI 34.8, and in no acute distress. HEAD: Normocephalic, atraumatic. CHEST: Clear to auscultation. ?No respiratory distress. HEART: Regular rate and rhythm.? MSK: No chest wall tenderness to palpation. No lower extremity edema. No calf tenderness. NEURO: ?Alert and oriented x3. Patient screened in triage and initial orders placed.? ?Additional care and disposition to be based upon?diagnostic testing and treatment. <KAREN Montoya Last Filed: 07/15/23 17:51> Source: patient <KAREN Montoya Filed: 07/15/23 17:51> Mode of arrival: ambulatory <Victoria Godinez PA-C - Last Filed: 07/15/23 17:51> Limitations: no limitations <Victoria Godinez PA-C - Last Filed: 07/15/23 17:51> History of Present Illness HPI narrative: Patient is a 52 year old male with history of CAD, Cardiac arrest/[place] in [place] in February 2022, paroxysmal a.fib, DM, HTN, HLD here with right sided chest pain. Patient notes he was at work today around 4:00 p.m. and began having some right-sided chest pain. He noted the pain was intermittent and seemed to come in short jabs . He sat down to rest, noted the pain seemed to lessen a bit but began feeling light headed. He notes that the pain was associated with palpitations, dizziness, diaphoresis, shortness of breath and anxiety. He notes the sharp pains and palpitations had subsided on arrival to the ER but he was then experiencing some burning pain. The burning pain has also resolved on my evaluation and he is pain free. He has had similar symptoms in the past but they were typically midsternal and would only last short periods of time and self resolve. His manager book is Dr. Worrell, who he saw about 2 days ago and discussed these ongoing symptoms with him and he is scheduled for nuc med test on the 08/09. His last stress test was about a year and a half ago. <Ira Hare MD - Last Filed: 07/15/23 21:54> Related Data Home Medications: Home Medications Medication Instructions Recorded Confirmed aspirin 81 mg tablet 81 mg PO DAILY 05/18/21 02/22/23 clopidogrel 75 mg tablet (Plavix) 75 mg PO DAILY 05/18/21 02/22/23 metoprolol succinate 50 mg 25 mg PO DAILY 05/18/21 02/22/23 tablet,extended release 24 hr (Toprol XL) nitroglycerin 0.4 mg sublingual 0.4 mg sublingual PRN PRN Chest 05/18/21 02/22/23 tablet (Nitrostat) Pain ranolazine 500 mg tablet,extended 500 mg PO Q12H 05/18/21 02/22/23 release,12 hr (Ranexa) rosuvastatin 20 mg tablet (Crestor) 40 mg PO HS 05/18/21 02/22/23 bupropion HCl 300 mg 24 hr tablet, 300 mg PO DAILY 06/19/22 02/22/23 extended rel
[2023-07-15] MEDS: ASPIRIN 81 MG CHEWABLE TABLET 324 MG PO (17:51)
[2023-07-15] MEDS: BELLADONNA ALK/PHENOB ELIX 10 ML, MAG HYDROX/ALUMINUM HYD/SIMETH 30 ML, LIDOCAINE HCL 2... PO (17:52)
[2023-07-15 17:54] LABS: Basophils Percent Auto 0.3 % (0.2-1.2); Eosinophils Absolute Auto 0.1 K/mm3 (0-0.3); Eosinophils Percent Auto 0.8 % (0-4.4); Hematocrit 48.9 % (42.0-52.0); Hemoglobin 16.3 g/dL (14.0-18.0); Immature Granulocyte Absolute 0.01 K/mm3 (0.00-0.031); Immature Granulocyte Percent A 0.1 % (0-0.5); Lymphocytes Absolute Auto 0.86 K/mm3 (0.9-3.2); Mean Corpuscular HGB Conc 33.3 g/dl (32-36); Mean Corpuscular Hemoglobin 28.4 pg (26-34); Mean Corpuscular Volume 85.3 fl (80-100); Monocytes Absolute Auto 0.7 K/mm3 (0.1-0.6); Monocytes Percent Auto 9.9 % (2.6-8.5); Neutrophils Absolute Auto 5.5 K/mm3 (1.3-6.7); Neutrophils Percent Auto 76.9 % (45.5-73.1); Platelet Count Result 172 k/mm3 (150-375); Red Blood Count 5.73 M/mm3 (4.6-6.20); Red Cell Distribution Width 11.5 % (11.5-14.5); White Blood Count 7.2 K/mm3 (4.5-10.0)
[2023-07-15 18:07] LABS: Prothrombin Time 13.9 Seconds (11.1-14.7)
[2023-07-15 18:08] LABS: Alanine Aminotransferase 55 U/L (6-50); Albumin Level 4.4 g/dL (3.5-5.1); Alkaline Phosphatase 88 U/L (38-126); Anion Gap 9 mmol/L (4-12); Aspartate Amino Transferase 41 U/L (17-59); Bilirubin,Total 0.9 mg/dL (0.2-1.3); Blood Urea Nitrogen 20 mg/dL (9-20); Calcium 9.2 mg/dL (8.4-10.2); Carbon Dioxide 23 mmol/L (22-30); Chloride 106 mmol/L (98-107); Estimated CRCL calculation 83 ml/min; Estimated Glomerular Filt Rate > 60; Glucose 102 mg/dL (65-110); Lipase 111 U/L (23-300); Partial Thromboplastin Time 27.2 Seconds (22.3-36.8); Potassium 4.2 mmol/L (3.4-5.0); Sodium 138 mmol/L (137-145)
[2023-07-15 18:10] LABS: D Dimer 0.31 ug/mL (<0.48)
[2023-07-15 18:18] LABS: Troponin I < 0.012 ng/mL (0.000-0.034)
--- NOTE | 2023-07-15 21:15 | ECG_ITS ---
Measurements Intervals [place] Rate: 72 P: 30 NE: 131 QRS: -9 QRSD: 107 T: 45 QT: 407 QTc: 445 Interpretive Statements SINUS RHYTHM INCOMPLETE RIGHT BUNDLE BRANCH BLOCK BORDERLINE ECG COMPARED TO ECG 07/15/2023 16:20:14 NO SIGNIFICANT CHANGES Electronically Signed On 07-16-2023 8:05:08 CDT by Carlton Clement D.O.
[2023-07-15 21:30] LABS: Troponin I < 0.012 ng/mL (0.000-0.034)
--- NOTE | 2023-07-15 22:55 | ADMGEN ---
This patient, Rafi Yepez, was admitted to IMU Room 210-01. Patient/family oriented to hospital policies and general routines including ID bracelet, bed and alarms, visiting hours, pain management, procedures, bathroom and other care routines, personal items, smoking policy, room service/diet, and visiting hours. Information on how to activate the Rapid Response Team has been discussed. Patient/Family are encouraged to report perceived risks to care and to ask questions if they do not understand what they are told or what they should do.
[2023-07-16] VITALS (16 sets, daily range): BP systolic 97–118; BP diastolic 61–73; PULSE 60–78; RESP 12–20; TEMP 36–36.9; O2SAT 94–100
[2023-07-16 01:19] LABS: Troponin I < 0.012 ng/mL (0.000-0.034)
--- NOTE | 2023-07-16 08:28 | PM.IMHP ---
H&P: HPI History of Present Illness Date/Time: 07/16/23 08:28 Chief Complaint: Chest pain Narrative: 52 years old male with possible history of cardiac disease, diabetes, hypertension, dyslipidemia and paroxysmal atrial fibrillation was admitted through the emergency room with complaints of having palpitation and right-sided chest discomfort lasting few minutes at a time going on since last evening. According to the patient he was at work and around 4:00 p.m. he started having is discomfort and palpitation. Patient was not radiating and has no association with activity. There was no shortness of breaths CV chest pain. Patient pain was resolved and he arrived to in the ER without any medication. In the ER patient was given electrocardiogram and cardiac and consult on and patient was admitted for observation and management. At present time patient is pain free and did not have any palpitation. Patient denies any fever or chills. No shortness of breath. Patient sees Dr. Worrell with Cardiology. Had an appt 2 days ago and everything was normal at that time. Scheduled for OP nuclear stress scheduled here for 08/09. Review of Systems Review of Systems: All systems reviewed & are unremarkable except as noted in HPI and below (the history and physical exam.) [facility] Past Medical History Medical History (Updated 07/16/23 @ 08:34 by Ricco Gutierrez MD) Chest pain Coronary artery disease Hypertension Obstructive sleep apnea Paroxysmal atrial fibrillation Skin cancer Surgical History Surgical History History of coronary artery stent placement (02/2021) Family History Family History Father Heart disease FH: CABG (coronary artery bypass surgery) Diabetes mellitus Sibling Diabetes mellitus Mother COPD (chronic obstructive pulmonary disease) Other Skin cancer Social History Social History Social History: Surrogate medical decision maker: Deedee Yepez, spouse. Code status: Full code. Smoking status: Never smoker Alcohol intake: never Substance use: never Substance use type: does not use Do You Feel Safe in your Home?: Yes Lack of Transportation: No Lack of Food: Never True Current Housing: I Have Housing Concerned About Future Housing: No Difficulty Paying Gas/Electric Bills: No Difficulty Paying for Meds: No Currently Unemployed: No Education: Bachelor's Degree Difficulty w/ Childcare or Family Care: No Additional living arrangements comments: Lives in [place] with spouse. Originally from [place]. Additional occupation/education comments: Works at the [employer]. Spiritual care concerns: No Meds Home Medications and Allergies Home Medications Medication Instructions Recorded Confirmed Type aspirin 81 mg tablet 81 mg PO DAILY 05/18/21 07/15/23 History clopidogrel 75 mg tablet (Plavix) 75 mg PO DAILY 05/18/21 07/15/23 History metoprolol succinate 50 mg 25 mg PO DAILY 05/18/21 07/15/23 History tablet,extended release 24 hr (Toprol XL) nitroglycerin 0.4 mg sublingual 0.4 mg sublingual PRN PRN Chest 05/18/21 07/15/23 History tablet (Nitrostat) Pain rosuvastatin 20 mg tablet (Crestor) 40 mg PO HS 05/18/21 07/15/23 History bupropion HCl 300 mg 24 hr tablet, 300 mg PO DAILY 06/19/22 07/15/23 History extended release isosorbide mononitrate 30 mg 30 mg PO DAILY 11/22/22 07/15/23 History tablet,extended release 24 hr acetaminophen 500 mg tablet 500 mg PO Q6H PRN Pain 07/15/23 07/15/23 History semaglutide 0.25 mg or 0.5 mg (2 0.5 mg subcut WEEKLY 07/15/23 07/15/23 History mg/3 mL) subcutaneous pen injector Allergies Allergy/AdvReac Type Severity Reaction Status Date / Time No Known Allergies Allergy Verified 02/22/23 08:37 Vital Signs Vital Signs - 24 hr 06/17
[2023-07-16] MEDS: METOPROLOL SUCCINATE EXT REL 25 MG TABCR PO (09:31)
[2023-07-16] MEDS: CLOPIDOGREL BISULFATE 75 MG TABLET PO (09:31)
[2023-07-16] MEDS: ISOSORBIDE MONONITRATE 30 MG TAB.ER.24H PO (09:31)
[2023-07-16] MEDS: buPROPion HCL XL (24 HR) 150 MG TABCR 300 MG PO (09:31)
[2023-07-16] MEDS: ASPIRIN 81 MG ENTERIC TABLET PO (09:31)
--- NOTE | 2023-07-16 11:50 | PM.CNCAR ---
Assessment and Plan Assessment and plan (1) Coronary artery disease: Qualifiers: Coronary Disease-Associated Artery/Lesion type: [place] artery [place] vs. transplanted heart: [place] heart Associated angina: with stable angina Qualified Code(s): I25.118 - Atherosclerotic heart disease of [place] coronary artery with other forms of angina pectoris Code(s): I25.10 - Atherosclerotic heart disease of [place] coronary artery without angina pectoris Status: Acute Assessment and Plan: Patient has a history of somewhat atypical cardiac symptoms. He has ruled out for myocardial infarction negative serial cardiac enzymes at this time without acute ischemic ECG changes. Unless, given patient's known history of CAD with prior intervention and myocardial infarction with vague GI symptoms as his presenting angina in the past and his level of concern will keep patient NPO after midnight for noninvasive ischemic evaluation prior to discharge tomorrow morning. Patient states she feels more comfortable proceeding with stress testing prior to discharge and not waiting until his scheduled study on 08/10/2023. We discussed at length in this regard she verbalized understanding. Further recommendations to follow. -continue aspirin 81 mg daily, Imdur 30 mg daily, Toprol XL 25 mg daily, rosuvastatin 40 mg at bedtime, clopidogrel 75 mg daily. Consider echocardiogram as well particularly if stress test unremarkable and he has not had prior echo in the past year. 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 Continue Imdur 30 mg daily, Toprol XL 25 mg daily. (3) Paroxysmal atrial fibrillation: Code(s): I48.0 - Paroxysmal atrial fibrillation Status: Acute Assessment and Plan: Maintaining sinus rhythm thus far. He is not on systemic anticoagulation and reports he has not had recurrence of atrial fibrillation for greater than a year and half to his knowledge. Continue telemetry. Systemic anticoagulation otherwise advised if AFib recurrence noted. If stress test unremarkable outpatient youth nutritional monitor may be useful to document for recurrent symptoms associated with tachyarrhythmia. (4) Diabetes: Qualifiers: Diabetes mellitus type: type 2 Diabetes mellitus roaster[place] insulin use: unspecified [facility]p insulin use status Diabetes mellitus complication status: with other specified complication Qualified Code(s): E11.69 - Type 2 diabetes mellitus with other specified complication Code(s): E11.9 - Type 2 diabetes mellitus without complications Status: Acute Plan Management per primary service. Patient was on Semaglutide as an outpatient. History of Present Illness History of Present Illness Consult date/time: Date of service: 07/16/23 11:50 Requesting physician: Ricco Gutierrez MD Consult reason: chest pain Reason For Visit: Chest Pain Narrative: Patient is a pleasant 52-year-old male with past medical history significant for CAD, paroxysmal atrial fibrillation, hypertension, hyperlipidemia, type 2 diabetes mellitus, obesity who presented emergency department complaints of patient worsening chest discomfort described as a throbbing not an intermittent sharp upper right-sided chest pain small palpitations, fatigue, nausea or that began yesterday afternoon. Symptoms were similar but more severe than symptoms he has experienced in the past and given the prolonged duration concerned him and may be having a heart attack present to the ER for further evaluation. Patient scheduled as an outpatient for Lexiscan stress test on 08/10/2023. Serial troponins been negative thus far his ECG did not reveal new acute ischemic changes. Patient will feels much bett
[2023-07-16] MEDS: ROSUVASTATIN 10 MG TABLET 40 MG PO (21:24)
[2023-07-17] VITALS (10 sets, daily range): BP systolic 100–114; BP diastolic 66–72; PULSE 64–90; RESP 14–18; TEMP 36.2–36.6; O2SAT 93–98
--- NOTE | 2023-07-17 | EST_ITS ---
Patient Info Name: Rafi Yepez Age: 52 years : 1970 Gender: Male Ht: 69 in Wt: 231 lbs BSA: 2.30 m2 HR: 79 bpm BP: 111 / 76 mmHg Heart Rhythm: Sinus Rhythm Exam Date: 07/17/2023 9:32 AM Exam Location: Echo Lab Patient Status: Inpatient Admit Date: 07/15/2023 Staff Ordering Physician: Reinaldo Ortega MD Attending Provider: Ana Luisa Cormier DO Nurse: Dinora Salazar APN Exam Type: CA stress zainab w NM Study Info Indications R07.89 - Other chest pain I25.10 - Atherosclerotic heart disease of [place] coronary artery without angina pectoris A regadenoson stress test was performed. Summary 1. Sinus rhythm with incomplete right bundle branch block. 2. No ST or T-wave changes following Lexiscan injection. 3. Clinically and electrocardiographically unremarkable Lexiscan stress test. 4. Myocardial perfusion imaging study to be dictated by Radiology. Protocol: Lexiscan Stress ECG Details Stage: REST Duration (min): 1 min : 6 sec HR (bpm): 79 SBP (mmHg): 111 DBP (mmHg): 76 Stage: REST Duration (min): 5 min : 14 sec HR (bpm): 78 SBP (mmHg): 111 DBP (mmHg): 76 Stage: STAGE 1 Duration (min): 1 min : 0 sec HR (bpm): 98 SBP (mmHg): 118 DBP (mmHg): 77 Stage: RECOVERY Duration (min): 1 min : 0 sec HR (bpm): 106 SBP (mmHg): 118 DBP (mmHg): 77 Stage: RECOVERY Duration (min): 2 min : 0 sec HR (bpm): 105 SBP (mmHg): 118 DBP (mmHg): 77 Stage: RECOVERY Duration (min): 3 min : 0 sec HR (bpm): 97 SBP (mmHg): 108 DBP (mmHg): 74 Stage: RECOVERY Duration (min): 3 min : 6 sec HR (bpm): 98 SBP (mmHg): 108 DBP (mmHg): 74 Rest HR: 78 bpm Peak HR: 107 bpm Rest Sys BP: 111 mmHg Peak Sys BP: 118 mmHg Max Pred HR: 167 bpm % Max Pred HR: 64 % Target HR: 142 bpm Max RPP: 12,626 bpm*mmHg Termination Reason: Completed protocol Cardiac Symptoms: None Total Time: 1 min : 0 sec Rest Morales BP: 76 mmHg Peak Morales BP: 77 mmHg Total Dose: 0.4 mg Resting ECG Sinus rhythm with incomplete right bundle branch block. Stress ECG No ST or T-wave changes following Lexiscan injection. Report Signatures
[2023-07-17] MEDS: METOPROLOL SUCCINATE EXT REL 25 MG TABCR PO (08:32)
[2023-07-17] MEDS: ISOSORBIDE MONONITRATE 30 MG TAB.ER.24H PO (08:33)
[2023-07-17] MEDS: CLOPIDOGREL BISULFATE 75 MG TABLET PO (08:33)
[2023-07-17] MEDS: ASPIRIN 81 MG ENTERIC TABLET PO (08:33)
[2023-07-17] MEDS: buPROPion HCL XL (24 HR) 150 MG TABCR 300 MG PO (08:33)
--- NOTE | 2023-07-17 09:16 | PM.PNCARD ---
Progress Note: A&P Assessment and Plan (1) Coronary artery disease: Qualifiers: Associated angina: with stable angina Coronary Disease-Associated Artery/Lesion type: [place] artery [place] vs. transplanted heart: [place] heart Qualified Code(s): I25.118 - Atherosclerotic heart disease of [place] coronary artery with other forms of angina pectoris Code(s): I25.10 - Atherosclerotic heart disease of [place] coronary artery without angina pectoris Status: Acute Assessment and Plan: Patient has a history of somewhat atypical cardiac symptoms. He has ruled out for myocardial infarction negative serial cardiac enzymes at this time without acute ischemic ECG changes. -Lexiscan today showed small area of infarct (which is not new), normal EF, and no WMA. -continue aspirin 81 mg daily, Imdur 30 mg daily, Toprol XL 25 mg daily, rosuvastatin 40 mg at bedtime, clopidogrel 75 mg daily. -OK for discharge from a cardiac standpoint (2) Hypertension: Qualifiers: Hypertension type: secondary to endocrine disorders Qualified Code(s): I15.2 - Hypertension secondary to endocrine disorders Code(s): I10 - Essential (primary) hypertension Status: Acute Assessment and Plan: BP well controlled. Continue Imdur 30 mg daily, Toprol XL 25 mg daily. (3) Paroxysmal atrial fibrillation: Code(s): I48.0 - Paroxysmal atrial fibrillation Status: Acute Assessment and Plan: Maintaining sinus rhythm thus far. He is not on systemic anticoagulation and reports he has not had recurrence of atrial fibrillation for greater than a year and half to his knowledge. Continue telemetry. Systemic anticoagulation otherwise advised if AFib recurrence noted. 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 Patient was on Semaglutide as an outpatient. Subjective Date/time seen: 07/17/23 09:16 Interval history: Cardiology follow up for CAD, chest pain He feels well today and denies any chest pain or other cardiovascular complaints. Review of Systems Review of Systems: Remainder of the review of systems is otherwise negative aside from that noted in the HPI. All systems reviewed & are unremarkable except as noted in HPI and below Constitutional: Constitutional: Reports as per HPI and Reports no additional constitutional complaints Eyes: Eyes: Reports as per HPI and Reports no additional eye complaints ENT: Reports system reviewed and no additional complaints, except as documented and Reports as per HPI Cardiovascular: Cardiovascular: Reports as per HPI and Reports no additional cardiovascular complaints Respiratory: Respiratory: Reports as per HPI and Reports no additional respiratory complaints Gastrointestinal: Gastrointestinal: Reports as per HPI and Reports no additional gastrointestinal complaints Genitourinary: Genitourinary: Reports no additional male genitourinary complaints and Reports as per HPI Musculoskeletal: Musculoskeletal: Reports no additional musculoskeletal complaints and Reports as per HPI Integumentary/Breasts: Skin/Breast: Reports system reviewed and no additional complaints, except as docu and Reports as per HPI Neurologic: Reports system reviewed and no additional complaints, except as documented and Reports as per HPI Psychiatric: Psychiatric: Reports no additional psychiatric complaints and Reports as per HPI Endocrine: Endocrine: Reports no additional endocrine complaints and Reports as per HPI Hematologic/Lymphatic: Hematologic/Lymphatic: Reports no additional sydni
--- NOTE | 2023-07-17 09:53 | PM.IMPN ---
Progress Note: A&P Assessment and Plan (1) Chest pain: Qualifiers: Chest pain type: unspecified Qualified Code(s): R07.9 - Chest pain, unspecified Code(s): R07.9 - Chest pain, unspecified Status: Acute Assessment and Plan: Patient is pain-free at present time. Plan is to continue home medications. Serial cardiac enzymes and EKG. Cardiology consult. (2) Hypertension: Qualifiers: Hypertension type: secondary to endocrine disorders Qualified Code(s): I15.2 - Hypertension secondary to endocrine disorders Code(s): I10 - Essential (primary) hypertension Status: Acute Assessment and Plan: Stable on current medications, will continue current treatment. (3) Paroxysmal atrial fibrillation: Code(s): I48.0 - Paroxysmal atrial fibrillation Status: Acute Assessment and Plan: Stable on current medications, will continue current treatment (4) Diabetes: Qualifiers: Diabetes mellitus complication status: with other specified complication Diabetes mellitus correction insulin use: unspecified correction insulin use status Diabetes mellitus type: type 2 Qualified Code(s): E11.69 - Type 2 diabetes mellitus with other specified complication Code(s): E11.9 - Type 2 diabetes mellitus without complications Status: Acute Assessment and Plan: Stable on current medications, will continue current treatment Plan (1) Coronary artery disease: ?Qualifiers: ?Coronary Disease-Associated Artery/Lesion type:?[place] artery??[place] vs. transplanted heart:?[place] heart??Associated angina:?with stable angina? Qualified Code(s):?I25.118 - Atherosclerotic heart disease of [place] coronary artery with other forms of angina pectoris ?Code(s): I25.10 - Atherosclerotic heart disease of [place] coronary artery without angina pectoris ?Status:?Acute ?Assessment and Plan: Patient has a history of somewhat atypical cardiac symptoms.? negative serial cardiac enzymes EKG showed no acute ischemic ECG changes.? Cardiac stress test : Lexiscan today showed small area of infarct (which is not new), normal EF, and no WMA per junior electrical engineer reports -continue aspirin 81 mg daily, Imdur 30 mg daily, Toprol XL 25 mg daily, rosuvastatin 40 mg at bedtime, clopidogrel 75 mg daily.? (2) Hypertension: ?Qualifiers: ?Hypertension type:?secondary to endocrine disorders? Qualified Code(s):?I15.2 - Hypertension secondary to endocrine disorders ?Code(s): I10 - Essential (primary) hypertension ?Status:?Acute ?Assessment and Plan: BP well controlled.? Continue Imdur 30 mg daily, Toprol XL 25 mg daily. (3) Paroxysmal atrial fibrillation: ?Code(s): I48.0 - Paroxysmal atrial fibrillation ?Status:?Acute ?Assessment and Plan: Maintaining sinus rhythm thus far.? He is not on systemic anticoagulation and reports he has not had recurrence of atrial fibrillation for greater than a year and half to his knowledge.? Human Resources Consultant recommends systemic anticoagulation otherwise advised if AFib recurrence noted.? Cardiology recommends outpatient monitoring tech for recurrent symptoms associated with tachyarrhythmia. 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 Qualified Code(s):?E11.69 - Type 2 diabetes mellitus with other specified complication ?Code(s): E11.9 - Type 2 diabetes mellitus without complications ?Status:?Acute Subjective Date/time seen: 07/17/23 09:53 Interval history: Patient underwent cardiac stress test today, patient denies chest pain, shortness breast, abdomen pain, nausea vomiting diarrhea focal weakness, focal weakness Patient is afebrile, troponin negative, telemetry shows no significant ischemia Exam [place]
[2023-07-17 11:50] LABS: Basophils Percent Auto 0.2 % (0.2-1.2); Eosinophils Absolute Auto 0.1 K/mm3 (0-0.3); Eosinophils Percent Auto 2.1 % (0-4.4); Hematocrit 48.7 % (42.0-52.0); Hemoglobin 15.7 g/dL (14.0-18.0); Immature Granulocyte Absolute 0.01 K/mm3 (0.00-0.031); Immature Granulocyte Percent A 0.2 % (0-0.5); Lymphocytes Absolute Auto 0.81 K/mm3 (0.9-3.2); Lymphocytes Percent Auto 16.9 % (18.3-44.2); Mean Corpuscular HGB Conc 32.2 g/dl (32-36); Mean Corpuscular Hemoglobin 28.3 pg (26-34); Mean Corpuscular Volume 87.7 fl (80-100); Mean Platelet Volume 10.2 fl (7.4-10.4); Monocytes Absolute Auto 0.5 K/mm3 (0.1-0.6); Monocytes Percent Auto 10.4 % (2.6-8.5); Neutrophils Absolute Auto 3.4 K/mm3 (1.3-6.7); Neutrophils Percent Auto 70.2 % (45.5-73.1); Platelet Count Result 160 k/mm3 (150-375); Red Blood Count 5.55 M/mm3 (4.6-6.20); Red Cell Distribution Width 11.4 % (11.5-14.5); White Blood Count 4.8 K/mm3 (4.5-10.0)
[2023-07-17 12:04] LABS: Anion Gap 4 mmol/L (4-12); Blood Urea Nitrogen 17 mg/dL (9-20); Calcium 8.9 mg/dL (8.4-10.2); Carbon Dioxide 29 mmol/L (22-30); Chloride 105 mmol/L (98-107); Estimated CRCL calculation 89 ml/min; Estimated Glomerular Filt Rate > 60; Glucose 102 mg/dL (65-110); Potassium 3.7 mmol/L (3.4-5.0); Sodium 138 mmol/L (137-145)
--- NOTE | 2023-07-17 13:26 | PM.DS ---
DS: Admitting Diagnosis Discharge Date 07/17/23 Admitting Diagnosis chest pain afib HTN DM DS: Discharge Diagnosis Discharge Diagnosis (1) Chest pain: Qualifiers: Chest pain type: unspecified Qualified Code(s): R07.9 - Chest pain, unspecified Code(s): R07.9 - Chest pain, unspecified Status: Acute Assessment and Plan: Patient is pain-free at present time. Plan is to continue home medications. Serial cardiac enzymes and EKG. Cardiology consult. (2) Hypertension: Qualifiers: Hypertension type: secondary to endocrine disorders Qualified Code(s): I15.2 - Hypertension secondary to endocrine disorders Code(s): I10 - Essential (primary) hypertension Status: Acute Assessment and Plan: Stable on current medications, will continue current treatment. 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 Diabetes mellitus type: type 2 Qualified Code(s): E11.69 - Type 2 diabetes mellitus with other specified complication Code(s): E11.9 - Type 2 diabetes mellitus without complications Status: Acute Assessment and Plan: Stable on current medications, will continue current treatment DS: Summary Hospital Course Hospital Course: 52 years old male with possible history of cardiac disease, diabetes, hypertension, dyslipidemia and paroxysmal atrial fibrillation was admitted through the emergency room with complaints of having palpitation and right-sided chest discomfort lasting few minutes at a time going on since last evening. According to the patient he was at work and around 4:00 p.m. he started having is discomfort and palpitation.? Patient was not radiating and has no association with activity.? There was no shortness of breaths CV chest pain. Patient pain was resolved and he arrived to in the ER without any medication. In the ER patient was given electrocardiogram and cardiac and consult on and patient was admitted for observation and management. (1) Coronary artery disease: ?Qualifiers: ?Coronary Disease-Associated Artery/Lesion type:?[place] artery??[place] vs. transplanted heart:?[place] heart??Associated angina:?with stable angina? Qualified Code(s):?I25.118 - Atherosclerotic heart disease of [place] coronary artery with other forms of angina pectoris ?Code(s): I25.10 - Atherosclerotic heart disease of [place] coronary artery without angina pectoris ?Status:?Acute ?Assessment and Plan: Patient has a history of somewhat atypical cardiac symptoms.? negative serial cardiac enzymes EKG showed no acute ischemic ECG changes.? Cardiac stress test : Lexiscan today showed small area of infarct (which is not new), normal EF, and no WMA per word processing operator reports -continue aspirin 81 mg daily, Imdur 30 mg daily, Toprol XL 25 mg daily, rosuvastatin 40 mg at bedtime, clopidogrel 75 mg daily.? (2) Hypertension: ?Qualifiers: ?Hypertension type:?secondary to endocrine disorders? Qualified Code(s):?I15.2 - Hypertension secondary to endocrine disorders ?Code(s): I10 - Essential (primary) hypertension ?Status:?Acute ?Assessment and Plan: BP well controlled.? Continue Imdur 30 mg daily, Toprol XL 25 mg daily. (3) Paroxysmal atrial fibrillation: ?Code(s): I48.0 - Paroxysmal atrial fibrillation ?Status:?Acute ?Assessment and Plan: Maintaining sinus rhythm thus far.? He is not on systemic anticoagulation and reports he has not had recurrence of atrial fibrillation for greater than a year and half to his knowledge.? Treatment Counselor recommends systemic anticoagulation other
== END 2023-07-17 15:06 | disposition home or self-care (01) ==
LOC: ANHED 21:53 → ANHIMU 22:33
PROVIDERS: Physician Assistant; Admitting Provider Internal Medicine; Emergency Provider Student in an Organized Health Care Education/Training Program; Visit Provider Hospitalist
DX: I25.118 Atherosclerotic heart disease of native coronary artery with other forms of angina pectoris (principal); Z95.5 Presence of coronary angioplasty implant and graft; I15.2 Hypertension secondary to endocrine disorders; I48.0 Paroxysmal atrial fibrillation; E11.69 Type 2 diabetes mellitus with other specified complication; E66.9 Obesity, unspecified; Z68.33 Body mass index [BMI] 33.0-33.9, adult; I25.2 Old myocardial infarction; R94.31 Abnormal electrocardiogram [ECG] [EKG]; G47.33 Obstructive sleep apnea (adult) (pediatric); E78.5 Hyperlipidemia, unspecified; Z82.49 Family history of ischemic heart disease and other diseases of the circulatory system; Z79.82 Long term (current) use of aspirin; Z79.02 Long term (current) use of antithrombotics/antiplatelets; Z79.84 Long term (current) use of oral hypoglycemic drugs; Z79.899 Other long term (current) drug therapy
CPT/HCPCS: 36415; 71046; 78452; 80048; 80053; 83690; 84484; 85025; 85380; 85610; 85730; 93005; 93017; 99285; A9270; A9502; G0378; J2785

== ENCOUNTER 2023-10-20 20:53 | Observation (INO) | payer OTHER, SELFPAY ==
--- NOTE | ~2023-10-20 | XR_ITS ---
XR chest 2V Ordering provider: Vic Banegas DO History: 53 years Male with . CP, SOB, HTN, STENT 2020, HEART ATTACK 2020, AFIB . Comparison: July 15, 2023 FINDINGS: MEDIASTINUM: The cardiac silhouette is not enlarged. LUNGS: No infiltrates, effusions or pneumothorax. OTHER: No free air under the diaphragm. IMPRESSION: No acute cardiopulmonary pathology. Reviewed, dictated and finalized at location A.
--- NOTE | 2023-10-20 20:54 | ECG_ITS ---
Test Date: 2023-10-20 21:03:00 Measurements Intervals [place] Rate: 86 P: 41 NM: 113 QRS: -8 QRSD: 95 T: 55 QT: 354 QTc: 424 Interpretive Statements SINUS RHYTHM WITH SHORT NM INTERVAL INCOMPLETE RIGHT BUNDLE BRANCH BLOCK BASELINE ARTIFACT- I, III, AVL BORDERLINE ECG No previous ECG available for comparison Electronically Signed On 10-21-2023 07:33:05 CDT by Carlton Clement D.O.
[2023-10-20 20:56] VITALS: BP 113/80; PULSE 89; RESP 20; TEMP 36.3; O2SAT 95
[2023-10-20 21:13] LABS: Basophils Percent Auto 0.3 % (0.2-1.2); Eosinophils Absolute Auto 0.1 K/mm3 (0-0.3); Eosinophils Percent Auto 0.8 % (0-4.4); Hematocrit 46.2 % (42.0-52.0); Hemoglobin 15.6 g/dL (14.0-18.0); Immature Granulocyte Absolute 0.02 K/mm3 (0.00-0.031); Immature Granulocyte Percent A 0.2 % (0-0.5); Lymphocytes Absolute Auto 0.87 K/mm3 (0.9-3.2); Lymphocytes Percent Auto 9.8 % (18.3-44.2); Mean Corpuscular HGB Conc 33.8 g/dl (32-36); Mean Corpuscular Hemoglobin 29.1 pg (26-34); Monocytes Absolute Auto 0.7 K/mm3 (0.1-0.6); Monocytes Percent Auto 8.2 % (2.6-8.5); Neutrophils Absolute Auto 7.1 K/mm3 (1.3-6.7); Neutrophils Percent Auto 80.7 % (45.5-73.1); Platelet Count Result 174 k/mm3 (150-375); Red Blood Count 5.37 M/mm3 (4.6-6.20); Red Cell Distribution Width 11.9 % (11.5-14.5); White Blood Count 8.9 K/mm3 (4.5-10.0)
[2023-10-20 21:26] LABS: Alanine Aminotransferase 32 U/L (6-50); Albumin Level 4.5 g/dL (3.5-5.1); Alkaline Phosphatase 80 U/L (38-126); Anion Gap 8 mmol/L (4-12); Aspartate Amino Transferase 26 U/L (17-59); Bilirubin,Total 0.9 mg/dL (0.2-1.3); Blood Urea Nitrogen 22 mg/dL (9-20); Calcium 9.3 mg/dL (8.4-10.2); Carbon Dioxide 24 mmol/L (22-30); Chloride 106 mmol/L (98-107); Estimated CRCL calculation 87 ml/min; Estimated Glomerular Filt Rate > 60; Glucose 101 mg/dL (65-110); Lipase 161 U/L (23-300); Potassium 4.3 mmol/L (3.4-5.0); Sodium 138 mmol/L (137-145)
[2023-10-20 21:29] LABS: Prothrombin Time 13.6 Seconds (11.1-14.7)
[2023-10-20 21:30] LABS: Partial Thromboplastin Time 26.7 Seconds (22.3-36.8)
[2023-10-20 21:35] LABS: Troponin I < 0.012 ng/mL (0.000-0.034)
[2023-10-21] VITALS (17 sets, daily range): BP systolic 92–117; BP diastolic 61–84; PULSE 62–81; RESP 12–22; TEMP 35.7–36.6; O2SAT 94–100; BMI 34.8
--- NOTE | 2023-10-21 00:04 | ECG_ITS ---
Test Date: 2023-10-21 00:12:37 Measurements Intervals [place] Rate: 76 P: 50 NV: 156 QRS: 2 QRSD: 107 T: 47 QT: 382 QTc: 431 Interpretive Statements SINUS RHYTHM LOW QRS VOLTAGE IN PRECORDIAL LEADS INCOMPLETE RIGHT BUNDLE BRANCH BLOCK BORDERLINE ST-T WAVE ABNORMALITY- ANTERIOR LEADS BASELINE ARTIFACT- I, AVL, V3 BORDERLINE ECG Compared to ECG 10/20/2023 21:03:00 NO SIGNIFICANT CHANGE Electronically Signed On 10-21-2023 07:36:29 CDT by Carlton Clement D.O.
[2023-10-21 00:55] LABS: Troponin I < 0.012 ng/mL (0.000-0.034)
--- NOTE | 2023-10-21 01:42 | ED.CHESTPAIN ---
HPI - Chest Pain General Chief Complaint: Chest Pain Stated Complaint: chest pain Time Seen by Provider: 10/21/23 00:38 Source: patient Limitations: no limitations History of Present Illness HPI narrative: Patient is a 53-year-old male presents to the emergency department complaining of chest pain. Patient states around 5:00 p.m. lab work he developed pain on both sides of his chest, felt pressure like, nonradiating, no history of pain in the past, notes that did not feel like his typical angina pain, it was constant, nonradiating, lasted a couple hours, went away briefly and then returned, overall is resolved now, took aspirin for. Patient denies fever, cough, nausea, vomiting, diarrhea, melena, hematochezia, abdominal pain. Patient does admit to some chronic epigastric discomfort for which he is pending an EGD that overall been unchanged and not concerning to him. Patient does know that lives having the chest discomfort he also felt diaphoretic and was having some difficulty breathing. Patient is to history of coronary artery disease with stent placement is noted cardiology Dr. Jimenes. Patient admits to stress test in the past 1 year. Patient denies history of blood clots. Patient denies unilateral lower extremity swelling. Patient denies numbness, weakness. Related Data Home Medications Medication Instructions Recorded Confirmed aspirin 81 mg tablet 81 mg PO DAILY 05/18/21 10/21/23 clopidogrel 75 mg tablet (Plavix) 75 mg PO DAILY 05/18/21 10/21/23 metoprolol succinate 50 mg 25 mg PO DAILY 05/18/21 10/21/23 tablet,extended release 24 hr (Toprol XL) nitroglycerin 0.4 mg sublingual 0.4 mg sublingual PRN PRN Chest 05/18/21 10/21/23 tablet (Nitrostat) Pain rosuvastatin 20 mg tablet (Crestor) 40 mg PO HS 05/18/21 10/21/23 bupropion HCl 300 mg 24 hr tablet, 300 mg PO DAILY 06/19/22 10/21/23 extended release isosorbide mononitrate 30 mg 30 mg PO DAILY 11/22/22 10/21/23 tablet,extended release 24 hr acetaminophen 500 mg tablet 500 mg PO Q6H PRN Pain 07/15/23 10/21/23 semaglutide 0.25 mg or 0.5 mg (2 0.5 mg subcut WEEKLY 07/15/23 10/21/23 mg/3 mL) subcutaneous pen injector Allergies Allergy/AdvReac Type Severity Reaction Status Date / Time No Known Allergies Allergy Verified 10/20/23 20:54 Review of Systems Review of Systems: A 10 system review of systems was completed on the patient and is negative except for what is stated in the HPI. Nursing and ancillary documentation was reviewed. FORMERLY [facility], [facility] Past Medical History Medical History Chest pain Coronary artery disease Hypertension Obstructive sleep apnea Paroxysmal atrial fibrillation Skin cancer Surgical History Surgical History History of coronary artery stent placement (02/2021) Family History Family History (Updated 10/21/23 @ 03:55 by Carlota Dc RN) Father Diabetes mellitus Heart disease FH: CABG (coronary artery bypass surgery) Kidney calculi Sibling Diabetes mellitus Kidney calculi Mother COPD (chronic obstructive pulmonary disease) Social History Social History Social History: Surrogate medical decision maker: Deedee Yepez, spouse. Code status: Full code. Smoking status: Never smoker Alcohol intake: never Substance use: never Substance use type: does not use Do You Feel Safe in your Home?: Yes Lack of Transportation: No Lack of Food: Never True Current Housing: I Have Housing Concerned About Future Housing: No Difficulty Paying Gas/Electric Bills: No Difficulty Paying for Meds: No Currently Unemployed: No Education: Bachelor's Degree Difficulty w/ Childcare or Family Care: No Additional living arrangements comments: Lives in [place] with spouse. Originally from [place]. Additional occupation/education c
[2023-10-21] MEDS: SODIUM CHLORIDE 0.9% IV 1,000 ML 999 ML IV CONT (01:49)
[2023-10-21 02:39] LABS: D Dimer 0.29 ug/mL (<0.48)
--- NOTE | 2023-10-21 02:51 | ECG_ITS ---
Test Date: 2023-10-21 02:52:59 Measurements Intervals [place] Rate: 67 P: 60 MD: 163 QRS: 13 QRSD: 116 T: 56 QT: 421 QTc: 446 Interpretive Statements SINUS RHYTHM INCOMPLETE RIGHT BUNDLE BRANCH BLOCK MINIMAL Q WAVES- HIGH LATERAL LEADS BASELINE ARTIFACT- I, III, AVR, AVL, AVF, V1-V2 BORDERLINE ECG Compared to ECG 10/21/2023 00:12:37 NO SIGNIFICANT CHANGE Electronically Signed On 10-21-2023 07:40:18 CDT by Carlton Clement D.O.
[2023-10-21 03:17] LABS: Troponin I < 0.012 ng/mL (0.000-0.034)
--- NOTE | 2023-10-21 03:52 | ADMGEN ---
This patient, Rafi Yepez, was admitted to IMU Room 206-01. Patient/family oriented to hospital policies and general routines including ID bracelet, bed and alarms, visiting hours, pain management, procedures, bathroom and other care routines, personal items, smoking policy, room service/diet, and visiting hours. Information on how to activate the Rapid Response Team has been discussed. Patient/Family are encouraged to report perceived risks to care and to ask questions if they do not understand what they are told or what they should do. Pt arrived to the unit at 0329.
--- NOTE | 2023-10-21 08:03 | PM.IMHP ---
H&P: HPI History of Present Illness Date/Time: 10/21/23 08:03 Chief Complaint: Chest pain Narrative: 53yo male with HTN, CAD, pAFib and KATIE here for chest pain. Patient with hx of myocardial infarction in February 2021 with cardiac arrest from an occlusion of his proximal LAD s/p stent placement. He also had some distal disease in the RPDA that is treated medically. He did have some symptoms shortly after his AR and was brought back for a follow-up coronary angiogram in [place] couple of months after his original presentation and was told that his LAD was nicely patent. He had pAFib during the original hospitalization but converted to normal sinus. He had 2 further episodes of AFib but nothing for over 2 years. Patient has had multiple hospitalizations here for chest pain since moving to this area most recently in July 2023. During that hospitalization, he had negative serial cardiac enzymes and ECG without acute ischemic changes. He underwent a Lexiscan stress test showing clinically and electrocardiographically unremarkable Lexiscan stress test. Myocardial images showing a small, mild, fixed perfusion defect involving mid to basal inferolateral segments of left ventricle, consistent with infarct. No reversible component to suggest ischemia. There is no segmental wall motion abnormality. Left ventricular ejection fraction measures >70%. Patient was discharged home on July 16 to continue medical management. He saw his hydrotherapist, Dr Worrell, who felt his chest pain was not cardiac in nature and more likely GI. Patient has chronic intermittent chest pain that is fleeting and sharp central and substernal. He has had this off/on but more recently this has become more of a daily occurance. Pain is associated with coffee, other foods and bending. He is on PPI and Pepcid. He states there is a dull ache after the pain subsides. He has followed up with his PCP and a GI consult was ordered but patient not been seen yet. Patient states around 5:00 p.m. on the day before admission, he developed an episode of his chronic chest pain but then had bilateral mid-chest pain that was new. He had dry mouth, slight nausea, SOB and headache. No radiation to the pain but had pain in the back of both arms. Pain was not positional, pleuritic or palpable but chest was sore when pain subsided. No pedal edema. Has calf pain on occasion but not uncommon. He does not wear CPAP often and does wake up at night feeling SOB. Nocturia x 1. He works at the [employer] and saw the EMS on site and a 4lead EKG perform that was 'okay'. He took his regularly scheduled baby ASA that evening. Symptoms improved intially then worsened. He had repeat EKG as a 12 lead again showing no change and was given 4 baby ASA. He was instructed to go to the ED for evaluation. He denies fever, cough, vomiting, diarrhea, melena, hematochezia, abdominal pain, hematuria, dysruia. He has hearing loss with meiniers. Intentional weight loss of 32# this year. he has been having dizziness with standing that he has had 'forever' but has become more frequent past few days. He stopped using Ranexa earlier this year after discussing with cardiology. He presented to the ED for evaluation. In the ED, patient was afebrile and hemodynamically stable. CXR was clear. CBC, DDimer, CMP and Lipase normal except for BUN 22. Troponin negative x 3. EKG showing normal sinus, incomplete Rt BBB, and borderline ST-T wave changes in anterior leads. Repeat EKG showing no change. He was given NS and admitted for further care. Review of Systems Review of Systems: All systems reviewed & are unremarkable except as noted in HPI and below PMFSH Past Medical History Medical History (Updated 10/21/23 @ 10:13 by Santos Méndez MD) Chest pain Coronary artery disease Hypertension Meniere disease Obstructive sleep apnea Paroxysmal atrial fibrillation Skin cancer Surgical History Surgical History (Reviewed 10/21/23 @ 10:11 by
[2023-10-21] MEDS: ASPIRIN 81 MG ENTERIC TABLET PO (08:48)
[2023-10-21] MEDS: CLOPIDOGREL BISULFATE 75 MG TABLET PO (08:48)
[2023-10-21] MEDS: buPROPion HCL XL (24 HR) 150 MG TABCR 300 MG PO (08:49)
[2023-10-21] MEDS: METOPROLOL SUCCINATE EXT REL 25 MG TABCR PO (08:49)
[2023-10-21] MEDS: ISOSORBIDE MONONITRATE 30 MG TAB.ER.24H PO (08:49)
[2023-10-21] MEDS: PANTOPRAZOLE 40 MG TABLET PO (11:01)
--- NOTE | 2023-10-21 12:01 | PM.CNCAR ---
Assessment and Plan Assessment and plan (1) Chest pain: Qualifiers: Chest pain type: unspecified Qualified Code(s): R07.9 - Chest pain, unspecified Code(s): R07.9 - Chest pain, unspecified Status: Acute Plan This is a 53-year-old man well known to us here that has coronary disease having undergone emergency intervention revascularization of his LAD in [place] about 3 years ago. He continues to have episodes of intermittent chest pain symptoms that are for the most part atypical of angina. He once again is hospitalized with symptoms like this and his electrocardiograms and troponin levels show no evidence of acute coronary syndrome. He did have a Lexiscan and nuclear stress test as recently as June of this year with negative findings. At this point I believe he can be discharged for outpatient follow-up in my office. I am going to recommend discontinuing his isosorbide since there is no objective evidence of ischemia and some of her symptoms are consistent with a tendency to be orthostatic. He does not require any additional cardiac testing at this time. He and I had a conversation again today in the room as well as in the office a couple of weeks ago about returning to the cath lab manager to evaluate his coronary CV continues to have symptoms like this. I do not feel compelled to put for this since recent stress test is negative and recent electrocardiograms and troponin levels are also negative in the face of symptoms like this. Herb Worrell MD [facility] History of Present Illness History of Present Illness Consult date/time: 10/21/23 12:01 Reason For Visit: chest pain Narrative: This is a 53-year-old man who I know who has coronary artery disease. I am seeing in consultation today because of some chest pain symptoms with which he was admitted last evening to the hospital for observation/evaluation. The patient is known to me with a history of coronary disease. He was living in [facility] when he presented initially February of 2021 with an acute anterior wall ME complicated by cardiac arrest. He was resuscitated successfully and brought to the cath lab manager where he went are it emergency PCI with stenting of his left anterior descending. According to the records he had some distal disease in his RPDA which was treated medically and with which he has done well. He after moving here initially followed with a fire range technician at [place] for while and then transferred his care to our practice. He did have a follow-up angiogram done by his previous fire range technician to investigate intermittent symptoms of chest pain which did not show any evidence of new progression of his disease he was found to have patency of his LAD stent several years ago. He has been seen in my office intermittently since then and has episodes of intermittent chest pain that occur and nonexertional fashion that have largely felt to be atypical and noncardiac in nature. He was hospitalized here in June of this year for symptoms like this and had a Lexiscan nuclear stress test done which demonstrated a fixed defect compatible with his previous infarction and an ejection fraction of 70%. I saw him in the office just a couple weeks ago would follow-up of all of this and he was feeling well. He did report having a difficult time sleeping and having difficulty with that. He had some chest pain that was related to the recumbent position started on some Pepcid he was scheduled to see and production superintendent for an upper endoscopy for further evaluation of this. That has yet to occur. Yesterday while he was at work he be once again began to have symptoms of some dull central chest pain along with he had some discomfort in the arms and in the calves of his legs. He then became somewhat diaphoretic when he became concerned ambulance was called and he was brought to the hospital again for further evaluation. His electrocardiograms show sinus rhythm with an incomp
--- NOTE | 2023-10-21 12:11 | PM.DS ---
DS: Admitting Diagnosis Discharge Date 10/21/23 Admitting Diagnosis Chest pain DS: Discharge Diagnosis Discharge Diagnosis (1) Chest pain: Qualifiers: Chest pain type: unspecified Qualified Code(s): R07.9 - Chest pain, unspecified Code(s): R07.9 - Chest pain, unspecified Status: Acute (2) Obstructive sleep apnea: Code(s): G47.33 - Obstructive sleep apnea (adult) (pediatric) Status: Acute (3) Coronary artery disease: Qualifiers: Coronary Disease-Associated Artery/Lesion type: [place] artery [place] vs. transplanted heart: [place] heart Associated angina: with stable angina Qualified Code(s): I25.118 - Atherosclerotic heart disease of [place] coronary artery with other forms of angina pectoris Code(s): I25.10 - Atherosclerotic heart disease of [place] coronary artery without angina pectoris Status: Acute (4) Paroxysmal atrial fibrillation: Code(s): I48.0 - Paroxysmal atrial fibrillation Status: Acute (5) Hypertension: Qualifiers: Hypertension type: secondary to endocrine disorders Qualified Code(s): I15.2 - Hypertension secondary to endocrine disorders Code(s): I10 - Essential (primary) hypertension Status: Acute DS: Summary Hospital Course Reason for hospitalization: 53yo male with HTN, CAD, pAFib and KATIE here for chest pain. Please see H&P for details. Hospital Course: Patient presents with acute and chronic chest pain. He has known CAD and risk factors with HTN, HLD. he does not have DM - he is on semaglutide for weight loss. His Trop are negative x3. EKG showing no acute findings. Chest pain sounds atypical. We continued medical management with ASA, Plavix, Imdur, Crestor and Toprol XL. Suspect more likely his symptoms are GI related. We increased his PPI to Q12hr dosing. Used Mylanta as needed. No RUQ pain to suggest gallbladder disease and symptoms prior to admission were not associated with food. Discussed with cardiology about possible heart cath to definitely answer the questions that his chest pain but patient was reluctant to proceed and Cardiology did not feel this was needed since signs/symptoms showing that unlikely to be cardiac in nature. They did recommend stopping Imdur. Patient did have low blood pressure upon standing but was not orthostatic with systolic blood pressure dropping from 101 laying to 92 standing. Stopping Imdur should help. He did well and was able to be discharged home on 10/21/23. Status at Discharge Cognitive/behavioral status at discharge: stable Time Spent with Patient Time attestation: Total time spent providing and/or coordinating discharge services: 50 minutes Time spent: Greater than 30 minutes Exam Narrative: AF 96.6 116/69 62 22 94% ra Gen - well appearing male in no acute respiratory distress who is nontoxic-appearing lying semi recumbent in bed HEENT - normocephalic. Atraumatic. Pupils equal round and reactive. Extraocular motions intact. Sclera clear and anicteric. Nares patent. Oropharynx was clear. No oral lesions. Moist mucous membranes. Tongue was midline. Palate [place] symmetrically. No facial asymmetry. Neck - neck was supple. No dominant adenopathy, thyromegaly or masses. 2+ carotid upstrokes without bruits. Chest - lungs are clear to auscultation bilaterally. No wheezes or crackles. CV - heart was regular rate and rhythm. S1-S2. No murmurs gallops or rubs. Abd - abdomen was soft. Nontender. Nondistended. Positive bowel sounds. No organomegaly or masses. Ext - no clubbing, cyanosis or edema. 2+ DP pulses bilaterally. Neuro - patient is alert and oriented x4. Strength is 5/5 in both upper and lower extremities. Cranial nerves 2-12 are intact. Speech is clear. Psych - normal mood and affect. Patient is pleasant and cooperative. Skin - warm and dry. No rashes noted. DS: Data Data Completed and Pending Labs on day of discharge: Labs
== END 2023-10-21 12:58 | disposition home or self-care (01) ==
LOC: ANHED 10-21 02:26 → ANHIMU 10-21 12:16
PROVIDERS: Admitting Provider General Practice; Emergency Provider Student in an Organized Health Care Education/Training Program; Visit Provider Internal Medicine
DX: I25.118 Atherosclerotic heart disease of native coronary artery with other forms of angina pectoris (principal); I48.0 Paroxysmal atrial fibrillation; I25.2 Old myocardial infarction; I10 Essential (primary) hypertension; G47.33 Obstructive sleep apnea (adult) (pediatric); Z95.5 Presence of coronary angioplasty implant and graft; Z79.02 Long term (current) use of antithrombotics/antiplatelets; Z79.85 Long-term (current) use of injectable non-insulin antidiabetic drugs; Z79.82 Long term (current) use of aspirin
CPT/HCPCS: 36415; 71046; 80053; 83690; 84484; 85025; 85380; 85610; 85730; 93005; 96360; 99285; A9270; G0378; J7030

== ENCOUNTER 2024-02-22 00:17 | Emergency (ER) | payer OTHER, SELFPAY ==
[2024-02-22] VITALS (28 sets, daily range): BP systolic 105–119; BP diastolic 72–84; PULSE 58–83; RESP 12–28; TEMP 36.4–36.8; O2SAT 93–98
--- NOTE | ~2024-02-22 | XR_ITS ---
Clinical Indication: Chest pain PA and lateral views of the chest: Comparison: 10/20/2023 Findings: The lungs are clear, without evidence of focal consolidation or pleural effusion. Cardiome diastinal silhouette is within normal limits. Bones and soft tissues are unremarkable. Impression: Normal chest. Reviewed, dictated and finalized at location . WARE DEVELOPER Impression: Normal chest.
--- NOTE | 2024-02-22 00:21 | ECG_ITS ---
Test Date: 2024-02-22 00:25:31 Measurements Intervals [place] Rate: 85 P: 42 ME: 117 QRS: -25 QRSD: 100 T: 50 QT: 364 QTc: 433 Interpretive Statements SINUS RHYTHM INCOMPLETE RIGHT BUNDLE BRANCH BLOCK BASELINE ARTIFACT- I, II, AVR, AVL BORDERLINE ECG Compared to ECG 10/21/2023 02:52:59 NO SIGNIFICANT CHANGE Electronically Signed On 02-22-2024 05:29:08 [employer] ON [employer]GLASS[employer] ASSEMBLER by Carlton Clement D.O.
[2024-02-22] MEDS: ASPIRIN 81 MG CHEWABLE TABLET 324 MG PO (00:38)
--- NOTE | 2024-02-22 00:41 | PC.NURSE ---
pt given 3 asa - as he took 1 baby asa prior to arrival in er
--- NOTE | 2024-02-22 00:46 | ED.CHESTPAIN ---
HPI - Chest Pain General Chief Complaint: Chest Pain Stated Complaint: chest pains for a few days Time Seen by Provider: 02/22/24 00:30 Source: patient Mode of arrival: ambulatory Limitations: no limitations History of Present Illness HPI narrative: 53-year-old with a history of CAD presents to the ER with complaints of right-sided chest pain which has been on and off for past few days however this evening he started having pain which was radiating into arm. Patient states that he took 1 tablet of sublingual nitro his pain subsided. He presently denies having any shortness of breath, nausea or diaphoresis. Related Data Home Medications Medication Instructions Recorded Confirmed aspirin 81 mg tablet 81 mg PO DAILY 05/18/21 10/21/23 clopidogrel 75 mg tablet (Plavix) 75 mg PO DAILY 05/18/21 10/21/23 metoprolol succinate 50 mg 25 mg PO DAILY 05/18/21 10/21/23 tablet,extended release 24 hr (Toprol XL) nitroglycerin 0.4 mg sublingual 0.4 mg sublingual PRN PRN Chest 05/18/21 10/21/23 tablet (Nitrostat) Pain rosuvastatin 20 mg tablet (Crestor) 40 mg PO HS 05/18/21 10/21/23 bupropion HCl 300 mg 24 hr tablet, 300 mg PO DAILY 06/19/22 10/21/23 extended release acetaminophen 500 mg tablet 500 mg PO Q6H PRN Pain 07/15/23 10/21/23 semaglutide 0.25 mg or 0.5 mg (2 0.5 mg subcut WEEKLY 07/15/23 10/21/23 mg/3 mL) subcutaneous pen injector Allergies Allergy/AdvReac Type Severity Reaction Status Date / Time No Known Allergies Allergy Verified 02/22/24 00:18 Review of Systems Review of Systems: All systems reviewed & are unremarkable except as noted in HPI and below Constitutional: Constitutional: Reports no additional constitutional complaints Eyes: Eyes: Reports no additional eye complaints ENT: Reports system reviewed and no additional complaints, except as documented Cardiovascular: Cardiovascular: Reports as per HPI Respiratory: Respiratory: Reports no additional respiratory complaints Gastrointestinal: Gastrointestinal: Reports no additional gastrointestinal complaints Musculoskeletal: Musculoskeletal: Reports no additional musculoskeletal complaints Integumentary/Breasts: Skin/Breast: Reports system reviewed and no additional complaints, except as docu PMFSH Past Medical History Medical History Chest pain Coronary artery disease Hypertension Meniere disease Obstructive sleep apnea Paroxysmal atrial fibrillation Skin cancer Surgical History Surgical History History of coronary artery stent placement (02/2021) Family History Family History Father Diabetes mellitus Heart disease FH: CABG (coronary artery bypass surgery) Kidney calculi Sibling Diabetes mellitus Kidney calculi Mother COPD (chronic obstructive pulmonary disease) Social History Social History Social History: Surrogate medical decision maker: Deedee Yepez, spouse. Code status: Full code. Smoking status: Never smoker Alcohol intake: never Substance use: never Substance use type: does not use Do You Feel Safe in your Home?: Yes Lack of Transportation: No Lack of Food: Never True Current Housing: I Have Housing Concerned About Future Housing: No Difficulty Paying Gas/Electric Bills: No Difficulty Paying for Meds: No Currently Unemployed: No Education: Bachelor's Degree Difficulty w/ Childcare or Family Care: No Additional living arrangements comments: Lives in [place] with spouse. Originally from [place]. Additional occupation/education comments: Works at the [employer]. Spiritual care concerns: No Exam Narrative: GENERAL: Well-appearing, well-nourished, and in no acute distress. HEAD: Normocephalic, atraumatic. EYES: PERRLA and EOMI. ENT: Nares clear, Mucous membranes moist. NECK: Supple. CHEST: Clear to auscultation. No respiratory distress. HEART: Regular rate and rhythm. No murmur heard. Normal peripheral pulses. ABDOMEN: Soft, nontender, nondistended, normal active bowel sounds. EXTREMITIES: Normal range of motion. No edema. SKIN: Warm, dry, no rash. NEURO: No focal deficits. Alert and oriented x3. PSYCH: Normal mood and affect. Course Course Emergency Course: Had no further chest pain. I did inform him about his lab work, EKG findings. I did offer him admission issue prefers to go home Vital Signs Vital signs: Vital Signs Temperature 36.4 C 02/22/24 00:31 Pulse Rate 80 02/22/24 00:31 Respiratory Rate 16 02/22/24 00:31 Blood Pressure 114/77 02/22/24 00:31 Pulse Oximetry 97 02/22/24 00:31 Temperature 36.4 C 02/22/24 00:31 Pulse Rate 59 L 02/22/24 04:49 Respiratory Rate 16 02/22/24 04:49 Blood Pressure 114/82 02/22/24 04:49 Pulse Oximetry 97 02/22/24 04:49 Oxygen Delivery Room Air 02/22/24 00:32 MDM - Chest Pain MDM Narrative Medical decision making narrative: 53-year-old with history of CAD, hypertension, diabetes presents with chest pain. Upon arrival to the ER his EKG showed normal sinus rhythm with no acute ST-T changes the cardiac workup. Differential Diagnosis Differential diagnosis: Likely stable angina, unstable angina pectoris, atypical chest pain and st elevation myocardial infarction Medical Records Data Attestation: I reviewed the patient's medical records. Lab Data Attestation: I reviewed the patient's lab results. 02/22/24 00:36 02/22/24 00:36 Labs: Lab Results 02/22/24 02/22/24 Range/Units 00:36 03:46 WBC 5.7 (4.5-10.0) K/mm3 RBC 5.48 (4.6-6.20) M/mm3 Hgb 16.1 (14.0-18.0) g/dL Hct 47.8 (42.0-52.0) % MCV 87.2 (80-100) fl MCH 29.4 (26-34) pg MCHC 33.7 (32-36) g/dl RDW 11.6 (11.5-14.5) % Plt Count 183 (150-375) k/mm3 MPV 9.9 (7.4-10.4) fl Immature Gran % (Auto) 0.0 (0-0.5) % Neut % (Auto) 58.2 (45.5-73.1) % Lymph % (Auto) 26.0 (18.3-44.2) % [place] % (Auto) 11.8 H (2.6-8.5) % Eos % (Auto) 3.5 (0-4.4) % Baso % (Auto) 0.5 (0.2-1.2) % Lymph # (Auto) 1.47 (0.9-3.2) K/mm3 [place] # (Auto) 0.7 H (0.1-0.6) K/mm3 Eos # (Auto) 0.2 (0-0.3) K/mm3 Baso # (Auto) 0.0 (0.0-0.1) K/mm3 Abs Immat Gran (auto) 0.00 (0.00-0.031) K/mm3 Absolute Neuts (auto) 3.3 (1.3-6.7) K/mm3 Absolute Nucleated RBC 0.000 (0.0-0.012) K/mm3 Nucleated RBC % 0.0 (0.0-0.2) % PT 13.0 (11.1-14.7) Seconds INR 0.9 APTT 26.1 (22.3-36.8) Seconds Sodium 139 (137-145) mmol/L Potassium 3.8 (3.4-5.0) mmol/L Chloride 103 (98-107) mmol/L Carbon Dioxide 28 (22-30) mmol/L Anion Gap 8 (4-12) mmol/L BUN 20 (9-20) mg/dL Creatinine 1.10 (0.7-1.3) mg/dL Estim Creat Clear Calc 81 ml/min Estimated GFR > 60 (59 - ) Glucose 106 (65-110) mg/dL Calcium 8.9 (8.4-10.2) mg/dL Total Bilirubin 0.8 (0.2-1.3) mg/dL AST 31 (17-59) U/L ALT 35 (6-50) U/L Alkaline Phosphatase 78 (38-126) U/L Troponin I < 0.012 < 0.012 (0.000-0.034) ng/mL Total Protein 7.0 (6.3-8.2) g/dL Albumin 4.2 (3.5-5.1) g/dL Lipase 215 (23-300) U/L ECG Data EKG #1: ECG completion date: 02/22/24 ECG completion time: 00:25 EKG Interpretation: normal rate (85), sinus rhythm, normal QRS, RBBB, left axis and no acute changes EKG #2: ECG completion date: 02/22/24 ECG completion time: 04:00 EKG Interpretation: normal rate (62), non-specific ST changes, normal QRS, normal QT, NL axis and no acute changes Discharge Plan Discharge Clinical Impression: Chest pain Qualifiers: Ischemic chest pain type: stable angina pectoris Patient Disposition: Home, Self-Care Condition: Stable Instructions: Antibiotic Form Additional Instructions: continue home mediations follow with your cardilogist., Prescriptions: No Action metoprolol succinate [Toprol XL] 50 mg tablet extended release 24 hr 25 mg PO DAILY clopidogrel [Plavix] 75 mg tablet 75 mg PO DAILY nitroglycerin [Nitrostat] 0.4 mg tablet, sublingual 0.4 mg sublingual PRN PRN (Reason: Chest Pain) aspirin 81 mg Tablet 81 mg PO DAILY rosuvastatin [Crestor] 20 mg tablet 40 mg PO HS bupropion HCl 300 mg tablet extended release 24 hr 300 mg PO DAILY acetaminophen 500 mg Tablet 500 mg PO Q6H PRN (Reason: Pain) semaglutide 0.25 mg or 0.5 mg (2 mg/3 mL) Pen Injector 0.5 mg SUBCUT WEEKLY Rx Instructions: Pt takes on . pantoprazole 40 mg Tablet,Delayed Release (Dr/Ec) 40 mg PO Q12HR Qty: 60 0RF Follow-up/Referrals: Kraig Mckoy MD [Physician] - UNKNOWN,DOCTOR [Primary Care Provider] - Time of Disposition: 05:23
[2024-02-22 00:48] LABS: Basophils Percent Auto 0.5 % (0.2-1.2); Eosinophils Absolute Auto 0.2 K/mm3 (0-0.3); Eosinophils Percent Auto 3.5 % (0-4.4); Hematocrit 47.8 % (42.0-52.0); Hemoglobin 16.1 g/dL (14.0-18.0); Lymphocytes Absolute Auto 1.47 K/mm3 (0.9-3.2); Mean Corpuscular HGB Conc 33.7 g/dl (32-36); Mean Corpuscular Hemoglobin 29.4 pg (26-34); Mean Corpuscular Volume 87.2 fl (80-100); Mean Platelet Volume 9.9 fl (7.4-10.4); Monocytes Absolute Auto 0.7 K/mm3 (0.1-0.6); Monocytes Percent Auto 11.8 % (2.6-8.5); Neutrophils Absolute Auto 3.3 K/mm3 (1.3-6.7); Neutrophils Percent Auto 58.2 % (45.5-73.1); Platelet Count Result 183 k/mm3 (150-375); Red Blood Count 5.48 M/mm3 (4.6-6.20); Red Cell Distribution Width 11.6 % (11.5-14.5); White Blood Count 5.7 K/mm3 (4.5-10.0)
[2024-02-22 00:52] LABS: Alanine Aminotransferase 35 U/L (6-50); Albumin Level 4.2 g/dL (3.5-5.1); Alkaline Phosphatase 78 U/L (38-126); Anion Gap 8 mmol/L (4-12); Aspartate Amino Transferase 31 U/L (17-59); Bilirubin,Total 0.8 mg/dL (0.2-1.3); Blood Urea Nitrogen 20 mg/dL (9-20); Calcium 8.9 mg/dL (8.4-10.2); Carbon Dioxide 28 mmol/L (22-30); Chloride 103 mmol/L (98-107); Estimated CRCL calculation 81 ml/min; Estimated Glomerular Filt Rate > 60; Glucose 106 mg/dL (65-110); Lipase 215 U/L (23-300); Potassium 3.8 mmol/L (3.4-5.0); Sodium 139 mmol/L (137-145)
[2024-02-22 00:57] LABS: INR 0.9
[2024-02-22 00:58] LABS: Partial Thromboplastin Time 26.1 Seconds (22.3-36.8)
[2024-02-22 01:03] LABS: Troponin I < 0.012 ng/mL (0.000-0.034)
--- NOTE | 2024-02-22 03:58 | ECG_ITS ---
Test Date: 2024-02-22 04:00:58 Measurements Intervals [place] Rate: 62 P: 53 GA: 164 QRS: 5 QRSD: 101 T: 41 QT: 418 QTc: 425 Interpretive Statements SINUS RHYTHM INCOMPLETE RIGHT BUNDLE BRANCH BLOCK LOW QRS VOLTAGE IN PRECORDIAL LEADS BASELINE ARTIFACT- I, II, AVR BORDERLINE ECG Compared to ECG 02/22/2024 00:25:31 NO SIGNIFICANT CHANGE Electronically Signed On 02-22-2024 05:32:47 FREIGHT CAR LOADER by Carlton Clement D.O.
[2024-02-22 04:16] LABS: Troponin I < 0.012 ng/mL (0.000-0.034)
== END 2024-02-22 05:59 | disposition home or self-care (01) ==
PROVIDERS: Emergency Provider Family Medicine
DX: I25.118 Atherosclerotic heart disease of native coronary artery with other forms of angina pectoris (principal); I48.0 Paroxysmal atrial fibrillation; G47.33 Obstructive sleep apnea (adult) (pediatric); Z95.5 Presence of coronary angioplasty implant and graft; Z85.828 Personal history of other malignant neoplasm of skin; Z79.82 Long term (current) use of aspirin; Z79.02 Long term (current) use of antithrombotics/antiplatelets; Z79.85 Long-term (current) use of injectable non-insulin antidiabetic drugs; Z79.899 Other long term (current) drug therapy; I45.10 Unspecified right bundle-branch block
CPT/HCPCS: 36415; 71046; 80053; 83690; 84484; 85025; 85610; 85730; 93005; 99284; A9270

== ENCOUNTER 2024-07-08 10:13 | Emergency (ER) | payer OTHER, SELFPAY ==
--- NOTE | ~2024-07-08 | XR_ITS ---
XR chest 2V Ordering provider: Hilda Shi III, DO History: 53 years Male with . chest pain HX OF STENT . Comparison: February 22, 2024 FINDINGS: MEDIASTINUM: The cardiac silhouette is not enlarged. LUNGS: No infiltrates, effusions or pneumothorax. OTHER: No free air under the diaphragm. IMPRESSION: No acute cardiopulmonary pathology. Reviewed, dictated and finalized at location A.
--- NOTE | ~2024-07-08 | CT_ITS ---
EXAMINATION: CTA chest abdomen pelvis DATE: 07/08/2024 13:16 INDICATION: Pulsating chest pain and epigastric pain TECHNIQUE: Computed tomographic angiography (CTA) of the chest, abdomen, and pelvis was performed wit h 100 mL Omnipaque-350 intravenous contrast. Additional 3D reconstructions utilizing coronal maximum intensity projection (MIP) were performed. Automated exposure control and iterative reconstruction te chnique were employed. The dose-length product was 1419.47 mGy-cm. COMPARISON: None FINDINGS: Chest: Mild dependent atelectasis in the bilateral lower lobes. No pneumonia, pulmonary edema, pleural effus ion or pneumothorax. Heart size is normal. Atherosclerotic coronary artery calcific aeration. There i s some subendocardial fat attenuation along the basilar inferolateral which suggests sequela of chron ic infarct. Thoracic aorta is normal in caliber with no dissection. No pathologically enlarged thorac ic lymphadenopathy. Abdomen and pelvis: Small sliding-type hiatal hernia. Postoperative change of prior sleeve gastrectomy with suture line a long the greater curvature of the stomach. Liver, gallbladder, spleen, pancreas, bilateral adrenal gl ands and kidneys are normal. Bladder and prostate are unremarkable. Bowels including the appendix are normal. No free intraperitoneal gas or fluid. No pathologically enlarged abdominal or pelvic lymphad enopathy. Severe lower lumbar spondylosis. IMPRESSION: 1. Normal aorta with no aneurysm or dissection. No other acute cardiopulmonary disease or acute intra -abdominal/pelvic process. 2. Small sliding-type hiatal hernia with change of prior sleeve gastrectomy. Reviewed, dictated and finalized at location B. IMPRESSION: 1. Normal aorta with no aneurysm or dissection. No other acute cardiopulmonary disease or acute intra-abdominal/pelvic process. 2. Small sliding-type hiatal hernia with change of prior sleeve gastrectomy.
--- NOTE | 2024-07-08 10:14 | ECG_ITS ---
Test Date: 2024-07-08 10:17:29 Measurements Intervals [place] Rate: 63 P: 43 MI: 150 QRS: -3 QRSD: 97 T: 40 QT: 411 QTc: 423 Interpretive Statements SINUS RHYTHM INCOMPLETE RIGHT BUNDLE BRANCH BLOCK [90+ ms QRS DURATION, TERMINAL R IN V1/V2, 40+ ms S IN I/aVL/V4/V5/V6] Compared to ECG 02/22/2024 04:00:58 No significant changes Electronically Signed On 07-09-2024 15:30:01 CDT by Reina Gallegos M.D.
[2024-07-08 10:34] VITALS: BP 113/76; PULSE 68; RESP 16; TEMP 36.4; O2SAT 97
[2024-07-08 10:40] LABS: Basophils Percent Auto 0.5 % (0.2-1.2); Eosinophils Absolute Auto 0.1 K/mm3 (0-0.3); Eosinophils Percent Auto 1.7 % (0-4.4); Hematocrit 49.1 % (42.0-52.0); Hemoglobin 15.9 g/dL (14.0-18.0); Immature Granulocyte Absolute 0.02 K/mm3 (0.00-0.031); Immature Granulocyte Percent A 0.3 % (0-0.5); Lymphocytes Absolute Auto 1.17 K/mm3 (0.9-3.2); Lymphocytes Percent Auto 17.7 % (18.3-44.2); Mean Corpuscular HGB Conc 32.4 g/dl (32-36); Mean Corpuscular Hemoglobin 28.4 pg (26-34); Mean Corpuscular Volume 87.7 fl (80-100); Mean Platelet Volume 9.9 fl (7.4-10.4); Monocytes Absolute Auto 0.7 K/mm3 (0.1-0.6); Monocytes Percent Auto 10.9 % (2.6-8.5); Neutrophils Absolute Auto 4.6 K/mm3 (1.3-6.7); Neutrophils Percent Auto 68.9 % (45.5-73.1); Platelet Count Result 183 k/mm3 (150-375); Red Cell Distribution Width 11.9 % (11.5-14.5); White Blood Count 6.6 K/mm3 (4.5-10.0)
[2024-07-08 10:45] LABS: Alanine Aminotransferase 36 U/L (6-50); Albumin Level 4.6 g/dL (3.5-5.1); Alkaline Phosphatase 79 U/L (38-126); Anion Gap 8 mmol/L (4-12); Aspartate Amino Transferase 28 U/L (17-59); Bilirubin,Total 0.9 mg/dL (0.2-1.3); Blood Urea Nitrogen 19 mg/dL (9-20); Calcium 9.2 mg/dL (8.4-10.2); Carbon Dioxide 29 mmol/L (22-30); Chloride 102 mmol/L (98-107); Estimated CRCL calculation 85 ml/min; Estimated Glomerular Filt Rate > 60; Glucose 102 mg/dL (65-110); Lipase 91 U/L (23-300); Potassium 4.5 mmol/L (3.4-5.0); Sodium 139 mmol/L (137-145)
[2024-07-08 10:48] LABS: Partial Thromboplastin Time 25.5 Seconds (22.3-36.8); Prothrombin Time 13.6 Seconds (11.1-14.7)
[2024-07-08 10:53] VITALS: BP 118/83; PULSE 64; RESP 16; TEMP 36.4; O2SAT 98; O2SAT 99
[2024-07-08] MEDS: ASPIRIN 81 MG CHEWABLE TABLET 324 MG PO (10:56)
[2024-07-08 10:57] LABS: Troponin I < 0.012 ng/mL (0.000-0.034)
--- OUTSIDE RECORDS SUMMARY | 2024-07-08 11:48 | XMS_ITS | Encounter Summary ---
Author Organization [facility] Healthcare Address [address] [place] [id number] Care Team Providers Care Research Scholar Name Role Phone Opal Anderson MD Primary Care Provider Reason for Visit * Reason Onset Date Comments ready to schedule 10/24/2023 Encounter Details Date Type Department Care Team (Late st Contact Info) Description 10/24/2023 Telephone [facility] Specialty Services [address] [place] [phone] Miscellaneous, Not In File ready to schedule Social History Tobacco Use Types Packs/Day Years Used Date Smoking Tobacco: Never Smokeless Tobacco: Never AUDIT-C Answer Date Recorded Q1: How often do you have a drink containing alc ohol? 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 Author CCM Chronic Pain Care Plan Chronic Care Management No Gricel David, RN Note: Problem: Chronic Pain Goals: 1. Minimize further functional decline 2. Maximize quality of life 3. Control pain Strategies: - Activity/exercise program recommendation - Conservative stepwise pain medicine strategy with multi-disciplinary approach - Recommend healthy lifestyle strategies and compensatory methods as needed documented as of this encounter Visit Diagnoses Not on filedocumented in this encounter Care Teams Research Scholar Relationship Specialty Start Date End Date Opal Anderson MD PCP - General Internal Medicine 11/11/21 documented as of this encounter
--- OUTSIDE RECORDS SUMMARY | 2024-07-08 11:48 | XMS_ITS | Referral Summary ---
Author Organization [facility] [address] Address [address] [place] [address] Care Team Providers Care Vice Chair Name Role Phone Opal Anderson MD Primary Care Provider Encounters Date Type Department Care Team Description 06/18/2024 10:30 AM CATERING OPERATIONS MANAGER Office Visit [facility] Department of Psychiatry [address] [place] [address] Ana Rowley NP Illness anxiety disorder (Primary Dx); Anxiety 06/12/2024 Telephone [facility] Gastroenterology Formerly [facility] Advanced Medicine 12th [place] [address] [place] [address] Evon Meehan GI SCHEDULING (EGD) 05/24/2024 5:15 PM CATERING OPERATIONS MANAGER Lab [facility] [address] [place] [id number] Difficulty in voiding 05/24/2024 2:20 PM CATERING OPERATIONS MANAGER Office Visit [facility] [address] [place] [address] [place] [address] Lisa Quezada NP Difficulty in voiding (Primary Dx); BMI 35.0-35.9,adult 05/01/2024 Telephone [facility] Gastroenterology Formerly [facility] [address] [place] [address] [place] [address] Nila Dixon LPN EGD scheduling 05/01/2024 Telephone [facility] Specialty Services [address] [place] [phone] Elizabeth Allen RN 04/19/2024 3:30 PM CATERING OPERATIONS MANAGER Office Visit [facility] Cardiology at [address] [place] [address] Herb Worrell MD Coronary artery disease of [place] artery of [place] heart with stable angina pectoris (Primary Dx); Status post insertion of drug eluting coronary artery stent; Anxiety from Last 3 Months Allergies No known active allergies Medications ASPIRIN ORALIndications: prevention of thrombosis,Hx NV Take 81 mg by mouth nightly 1 Active multivitamin tabletIndication s:Vitamin Deficiency Prevention Take 1 tablet by mouth every morning Active acetaminophen (TYLENOL) 500 mg tabletIndication s:Pain Take 1 tablet (500 mg total) by mouth every 6 (six) hours as needed for pain Active clopidogreL (PLAVIX) 75 mg tablet Take 1 tablet (75 mg total) by mouth daily 90 tablet 3 4 Active metoprolol XL (TOPROL-XL) 25 mg extended release tablet Take 1 tablet (25 mg total) by mouth daily 90 tablet 3 4 Active buPROPion XL (WELLBUTRIN XL) 300 mg 24 hr tabletIndication s:Anxiety TAKE 1 TABLET (300 MG TOTAL) BY MOUTH EVERY MORNING. 90 tablet 2 4 Active isosorbide mononitrate ER (IMDUR) 30 mg 24 hr tablet TAKE 1 TABLET BY MOUTH EVERY DAY 90 tablet 2 4 Active semaglutide (WEGOVY) 0.25 mg/0.5 mL auto-injectorInd ications:Morbid (severe) obesity due to excess calories (HCC) Inject 0.5 mL (0.25 mg total) under the skin every 7 days 2 mL 4 Active Additional Information Patient not taking.Reported on 05/24/2024 rosuvastatin (CRESTOR) 20 mg tablet Take 1 tablet (20 mg total) by mouth daily 90 tablet 2 5 04/19/19 26 Active Additional Information Patient not taking.Reported on 05/24/2024 nitroglycerin (NITROSTAT) 0.[address] 1 tablet (0.4 mg total) under the tongue every 5 (five) minutes as needed for chest pain 25 tablet 2 5 01/24/[address] (PROTONIX) 40 mg EC tabletIndication s:Gastroesophage al reflux disease without esophagitis Take 1 tablet (40 mg total) by mouth 2 (two) times a day 180 tablet 3 5 Active busPIRone (BUSPAR) 5 mg tabletIndication s:Anxiety TAKE 1 TABLET BY MOUTH TWICE A DAY 180 tablet 1 5 Active Active Problems Problem Noted Date Diagnosed Date Difficulty in voiding 05/27/2024 Overview (05/27/2024): -urinating often -difficulty starting stream -intensity of stream varies -denies pain, burning, blood in urine Update UA and psa today. BMI 35.0-35.9,adult 05/27/2024 Overview (05/27/2024): -off wegovy for months -he does think weight is contributing to a lot of his symptoms -would like to restart He mentions he has a lot of medication at home, he does not know what dose, he will check once home and let me know, we will need to start with wegovy 0.25mg weekly. 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 -exam is reassuring, lungs clear -given duration on cough recommend CXR -recommend Zyrtec 10 mg daily and Pepcid 10 mg daily -schedule EGD -follow up with PCP if cough ongoing Screening for colon cancer 09/01/2023 Gastroesophageal reflux disease without esophagi tis 08/07/2023 Overview (11/29/2023): -multiple cardiac evaluations, which have been reassuring -continues to get the pain in his mid chest, feels pulsating pain -pantoprazole did not improve symptoms and he has yet to complete the EGD -sometimes he is having difficulty swallowing, he always has to have water with him Provided phone number for GI scheduling. Morbid (severe) obesity due to excess calories 0 07/12/2023 Overview (03/11/2024): -missed dose of wegovy when he was traveling, then administered a dose when he returned home, had vomiting so he stopped medication about 1 month ago -also holding due to upcoming egd -continues to have mid chest pain that comes and goes with negative cardiac workup -no change in symptoms off of wegovy Reach out after egd results to discuss possibly restarting wegovy, Fatigue 06/20/2023 Overview (06/20/2023): -last week or so he has been feeling fatigued and having muscle aches -yesterday and today he has been feeling better -working with sleep medicine on cpap -he notes he is sleeping more than normal -did not covid test -denies headaches, congestion, GI issues Thinking likely viral but will update labs today. 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 feeder does not think his symptoms are cardiac related -he will start to feel dizzy and clammy, vision becomes blurry, feeling shaky -these episodes occur randomly throughout the day, sometimes they start at work other times will start when he is at home not working -the intensity of these episodes has decreased since cardiology stopped ranolazine -chest pain does not always occur with these episodes -sometimes he feels better when eating -in the ED on 01/16/2023 he reports his blood sugar was elevated -he wonders if this could be anxiety -he is having some low blood pressures 100/48 he mentions recently, lower than usual in clinic today -he is requesting to see endocrinology Check A1C and BMP today, referral placed per request. Discussed red flag signs to seek medical attention, discussed closer blood pressure monitoring at home and reaching out to cardiology. Diabetes mellitus screening 09/19/2022 Overview (09/19/2022): -presents for diabetes screening -has noticed after meals that he sometimes has blurry vision, but does not happen with every meal -more feeling fatigued after meals -he is worried as his father, sister and brother have diabetes -his checks her blood sugar at home so he sometimes checks his sporadically -his blood sugar at home is 160 and this is after a meal -wears glasses at work, follows with opthalmology -last A1C: 03/31/2021 was 5.5 Check A1C today - 5.3. Encourage to continue healthy diet choices and exercise. Other headache syndrome 09/19/2022 Overview (09/19/2022): -reports almost daily headaches for a month or so -tylenol relieves pain -reports sleep is improving with new mouthpiece -thinks this is related to dose of isosorbide as he has needed a decrease in the past d/t headache Encouraged to continue to monitor symptoms, reach out if they are increasing in frequency or worsening. Encouraged to reach out to cardiology regarding isosorbide dosing. Pain in both knees 08/22/2022 Overview (03/20/2023): -bilateral knee pain for years -completed PT and is following with Ortho at [place] -was given a steroid injection by ortho and was told he will need gel injections -ortho attempted to place pain management referral and was told that the referral needs to come from PCP -L>R -knee pain is bothersome when he is stationary even when lying in bed -always feels like he is needing to move and pop leg -takes tylenol and that does improve pain so he can continue to work -denies redness, swelling Pain management referral placed. Coronary artery disease of [place] artery of [place] heart with stable angina pectoris 06/23/2022 Anxiety 06/23/2022 Overview (03/11/2024): -he wonders if his anxiety is messing with him -feels like he is driving himself to a panic attack -feelings come in waves, starts feeling clammy, chest hurts (this feels like heartburn or gas), feels shaky, overall weird feeling -he takes pantoprazole daily, he took a nitro at work and symptoms resolved -these episodes tend to occur when he is at work and not busy -he feels like he gets to the point he needs to go to the ED He has had negative workup with cardiology who do not think symptoms are chest related. He will continue his wellbutrin and buspar, he would like to talk to therapist/counselor. We have reviewed red flag signs to seek eval in ED. Update labs today, I have placed psychology referral. Cardiac arrest 06/23/2022 Atrial fibrillation with RVR 03/13/2021 Overview (09/27/2023): Last Assessment & Plan: Patient initially concerned that diaphoresis and tremors related to AFib; not found on EKG PLAN - CHADSVASC of 2; however, likely secondary to STEMI with no reoccurrence since - will continue to hold on anticoagulation - On metoprolol XL 50mg daily Hearing loss of left ear Sleep apnea Overview (02/01/2023): -diagnosed 15 years ago -he has been using a mouth piece but this does not help -dentist provided mouthpiece -he is still snoring -falls asleep and will wake up a few hours later -feels like he tosses and turns all night Sleep study ordered. Sleep medicine referral placed. Resolved Problems Problem Noted Date Diagnosed Date Resolved Date BMI 36.0-36.9,adult 05/03/2023 09/27/19 24 Overview (08/07/2023): -increased to wegovy 0.5mg -he would like to stay at current dose for another 4 weeks -he is down 9 pounds -denies vomiting, constipation, diarrhea Sent refill. Weight gain 03/20/2023 09/27/2023 Overview (03/20/2023): -wondering about injectable medications -always feeling hungry -snacking often -just started back with exercising -using free weights Follow up in 6-8 weeks. During this time will work on establishing physical activity routine and heart healthy diet habits. Immunizations Immunization Administration Dates Next Due Influenza, Quadrivalent, Livia l Culture-based MDCK, Preservative Free, Antibiotic Free, Intramuscular 03/25/2022 Influenza, Quadrivalent, Spl it, Preservative Free, Intramuscular 02/15/2017 Tdap 11/11/2021 Social History Tobacco Use Types Packs/Day Years Used Date Smoking Tobacco: Never Smokeless Tobacco: Never AUDIT-C Answer Date Recorded Q1: How often do you have a drink containing alcohol? Never 02/16/2024 Q2: How many drinks containi ng alcohol do you have on a typical day when you are drinking? Patient does not drink Q3: How often do you have si x or more drinks on one occasion? Never 02/16/2024 PHQ-2 Answer Date Recorded PHQ-2 Total Score (If total score is 3 or more points, staff should administer the PHQ-9) 2 11/11/2021 Personal Safety Answer Date Recorded Have you ever been in or are you currently in a harmful physical or emotional relationship or is someone making you feel afraid or unsafe? Denies 03/20/2024 Sex and Gender Information Value Date Recorded Sex Assigned at Not on file Legal Sex Male 12:50 PM CATERING OPERATIONS MANAGER Gender Identity Not on file Sexual Orientation Not on file Last Filed Vital Signs Vital Sign Reading Time Taken Comments Blood Pressure 102/68 05/24/2024 2:15 PM CATERING OPERATIONS MANAGER Pulse 69 05/24/2024 2:15 PM CATERING OPERATIONS MANAGER Temperature 36.8 C (98.3 F) 05/24/2024 2:15 PM CATERING OPERATIONS MANAGER Respiratory Rate 12 03/20/2024 3:27 PM CATERING OPERATIONS MANAGER Oxygen Saturation 97% 05/24/2024 2:15 PM CATERING OPERATIONS MANAGER Inhaled Oxygen Concentration - - Weight 107.5 kg (237 lb) 05/24/2024 2:15 PM CATERING OPERATIONS MANAGER Height 175.3 cm (5' 9 ) 05/24/2024 2:15 PM CATERING OPERATIONS MANAGER Body Mass Index 35 05/24/2024 2:15 PM CATERING OPERATIONS MANAGER Plan of Treatment Scheduled Procedures Name Priority Associated Diagnoses Date/Ti il ESOPHAGOGASTRODUODENOSCOPY Open Access Epigastric pain COLONOSCOPY Open Access Screening for colon cancer COLONOSCOPY Screen for colon cancer COLONOSCOPY Screening for colon cancer Goals Goal Patient Goal Type Associated Problems Recent Progress Patient-Stated? Author CCM Chronic Pain Care Plan Chronic Care Management Gricel Puente, RN Note: Problem: Chronic Pain Goals: 1. Minimize further functional decline 2. Maximize quality of life 3. Control pain Strategies: - Activity/exercise program recommendation - Conservative stepwise pain medicine strategy with multi-disciplinary approach - Recommend healthy lifestyle strategies and compensatory methods as needed Medical Devices Implanted Type Area Collar Runner Device Identifier Shelf Expiration Date Model / Serial / Lot Cardiac Stent Implanted:03/07 (Quantity not on file) N/A: Heart Medtronic Description:[place]-coronary Procedures Procedure Name Priority Date/Time Associated Diagnosis Comments PSA SCREEN Routine 05/24/2024 3:29 PM CATERING OPERATIONS MANAGER Difficulty in voiding URINALYSIS AND REFLEX TO MICROSCOPIC AND CULTURE Routine 05/24/2024 3:29 PM CATERING OPERATIONS MANAGER Difficulty in voiding COLONOSCOPY 03/20/2024 2:33 PM CATERING OPERATIONS MANAGER from Last 3 Months or Most Recently Relevant to Health Maintenance Results * PSA screen (05/24/2024 3:29 PM CATERING OPERATIONS MANAGER) PSA-Total 0.71 <=3.90 ng/mL Comment: Interpretive Data AGE SEX REFERENCE INTERVAL 0 minutes-150 years Female None 0 minutes-49 years Male None 50-59 years Male 0-3.90 60-69 years Male 0-5.40 70-79 years Male 0-6.20 80-150 years Male 0-6.20 The Priti PSA Total assay procedure was used. Results from different manufacturers or methods may not be comparable. Serial testing should be performed using the same method. Current interpretive data last revised 21. Blood 05/24/2024 3:29 PM CATERING OPERATIONS MANAGER 05/24/2024 4:02 PM CATERING OPERATIONS MANAGER Lisa Quezada [employer] LAB BLOOD ORDERABLES Fi nal Result Performing Organization Address City/[facility]/ZIP Co de Phone Number [facility] [place] [address] * Urinalysis reflex to microscopic and culture Urine, clean voided (05/24/2024 3:29 PM CATERING OPERATIONS MANAGER) Color, ur Straw Yellow Clarity, ur Clear Clear [facility] Specific gravity, ur 1.028 1.003 - 1.030 [facility] pH, urine 6.0 [facility] Comment: Interpretive Data U rine pH is affected by diet, medications, systemic acid-base disturbances, and renal tubular function. pH may affect urinary stone formation. For example, urine pH below 6.0 may help reduce the tendency for calcium phosphate stones and pH greater than 6.0 may reduce the tendency for uric acid stone formation. Source: [facility] Current Interpretive Data was last revised on 2017 Protein, ur ql Negative Negative [facility] Glucose, ur ql Negative Negative [facility] Ketones, ur Negative Negative [facility] Bilirubin, ur Negative Negative [facility] Blood, ur Negative Negative [facility] Urobilinogen, ur <2.0 <2.0 mg/dL [facility] Nitrite, ur Negative Negative [facility] Leukocyte esterase, ur Negative Negative [facility] UA reflex comment Reflex conditions for microscopic UA and culture not met. [facility] Urine, clean voided 05/24/2024 3:29 PM CATERING OPERATIONS MANAGER 05/24/2024 4:02 PM CATERING OPERATIONS MANAGER us Lisa Quezada NP LAB MICROBIOLOGY - GENE RAL ORDERABLES Final Result Performing Organization Address [facility]/ZIP Co de Phone Number CHAD [facility] [place] [address] * Colonoscopy (03/20/2024 2:33 PM CATERING OPERATIONS MANAGER) Anatomical Region Laterality Modality Other Narrative Procedure Note Ramon Ding MD - 03/20/2024 2:33 PM [facility] ENDOS[facility] Patient Name: Rafi Yepez Procedure Date: 03/20/2024 2:33 PM Date of : 1970 Admit Type: Outpatient Age: 53 Gender: Male Attending MD: Ramon Ding M.D. Room: [facility] ENDOSCOPY ROOM 4 Note Status: Finalized Procedure: Colonoscopy Indications: Screening for colorectal malignant neoplasm Referring MD: Opal Anderson M.D. Providers: Ramon Ding M.D., Nahun Swift M.D. Medicines: Monitored Anesthesia Care Complications: No immediate complications. Estimated Blood Loss: Estimated blood loss: none. Procedure: Pre-Anesthesia Assessment: - Immediately prior to administration ofmedications, the patient was re-assessed for adequacy to receive sedatives. - The risks and benefits of the procedure and the sedation options and risks were discussed with the patient. All questions were answered and informed consent was obtained. The benefits, risks and alternatives of theprocedure and sedation were discussed and informed consentwas obtained. All questions were answered. Please referto the signed informed consent document in the medical record. The scope was passed under direct vision.The CF HQ [id number] endoscope was introducedthrough the anus and advanced to the terminal ileum, with identification of the appendiceal orifice and IC valve. The bowel preparation used was GoLYTELY via split dose instruction. The terminal ileum,ileocecal valve, appendiceal orifice, and rectum were photographed. The entire colon was well visualized. The colonoscopy was performed with ease. Thepatient tolerated the procedure well. The quality of thebowel preparation was excellent. The quality of the bowel preparation was evaluated using the BBPS (BostonBowel Preparation Scale) with scores of: Right Colon = 3, Transverse Colon = 3 and Left Colon = 3 (entiremucosa seen well with no residual staining, smallfragments of stool or opaque liquid). The total BBPS score equals 9. Findings: The terminal ileum appeared normal. Two sessile polyps were found in the transverse colon. The polypswere 8 mm in size. These polyps were removed with a cold snare. Resectionand retrieval were complete. A polyp was found in the rectum. The polyp was sessile. The polyp was removed with a cold snare. Resection and retrieval were complete. The exam was otherwise without abnormality on direct and retroflexion views. To prevent bleeding after the polypectomy, one hemostatic clip was successfully placed. 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 Therewas no bleeding during, or at the end, of the procedure. Impression: A/P A. Screening for colon cancer: - Patient has never had prior colonoscopy - Colonoscopy 03/20/2024 with three colon polypsremoved - If adenoma repeat colonoscopy in three years otherwise sceening colonoscopy in 10 years - No NSAIDS x 2 weeks - OK to start aspirin and Plavix 21 Mar 2024 B. Intermittant chest pain: - Possible GERD vs cardiac - Unclear if patient is improved on pantoprazole; continue for now - EGD 03/20/2024 with tiny hiatal hernia - Small hiatal hernia can contribute to GERD but is not likely primary cause - No further evaluation or treatment needed for the hiatal hernia - If further evaluation for GERD is desiredconsider 24 hour Impedence study - Any further cardiac evaluation per PCP Recommendation: - Discharge patient to home (ambulatory). - Resume previous diet. - Continue present medications. - Await pathology results. - Repeat colonoscopy in 3 years for surveillance. - Return to primary care physician PRN. Attending Participation: I was present and participated during the entire procedure, including non-zapata portions. Electronically signed by Ramon Ding M.D. Ramon Ding M.D. 03/20/2024 3:00:59 PM . Number of Addenda: 0 Note Initiated On: 03/20/2024 2:33 PM Ramon Ding MD ENDOSCOPY PROCEDURES Final Result from Last 3 Months or Most Recently Relevant to Health Maintenance [facility]/O Address: [address] [place] [address] [employer] [facility] H[facility] Advance Directives For more information, please contact: [phone] * Full Code (Latest Code Status on File) Date Activated Date Inactivated Comments 03/20/2024 1:49 PM 03/20/2024 7:38 PM Care Teams Vice Chair Relationship Specialty Start Date End Date Opal Anderson MD PCP - General Internal Medicine 11/11/21
--- OUTSIDE RECORDS SUMMARY | 2024-07-08 11:48 | XMS_ITS | Clinical Summary ---
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 Encounters Date Type Department Care Team Description 06/18/2024 10:30 AM SURGEON PARTNER Office Visit [facility] Department of Psychiatry [address] [phone] Ana Rowley NP Illness anxiety disorder (Primary Dx); Anxiety 06/12/2024 Telephone [facility] Gastroenterology [address] [place] [address] [facility] [place] [address] [place] [phone] Evon Meehan GI SCHEDULING (EGD) 05/24/2024 5:15 PM SURGEON PARTNER Lab [facility] [address] [place] [phone] Difficulty in voiding 05/24/2024 2:20 PM SURGEON PARTNER Office Visit [facility] [address] [place] [address] [place] [address] [place] [phone] Lisa Quezada NP Difficulty in voiding (Primary Dx); BMI 35.0-35.9,adult 05/01/2024 Telephone [facility] Gastroenterology [address] [place] [address] [place] [address] [place] [phone] Nila Dixon LPN EGD scheduling 05/01/2024 Telephone [facility] Specialty Services [address] [place] [phone] Elizabeth Allen RN 04/19/2024 3:30 PM SURGEON PARTNER Office Visit [facility] Cardiology at [address] [place] [address] Herb Worrell MD Coronary artery disease of [place] artery of [place] heart with stable angina pectoris (Primary Dx); Status post insertion of drug eluting coronary artery stent; Anxiety from Last 3 Months Immunizations Immunization Administration Dates Next Due Influenza, Quadrivalent, Livia l Culture-based MDCK, Preservative Free, Antibiotic Free, Intramuscular 03/25/2022 Influenza, Quadrivalent, Spl it, Preservative Free, Intramuscular 02/15/2017 Tdap 11/11/2021 Surgical History Surgery Date Site/Laterality Comments SHUNT EXTERNALIZATION 03/14/21 BARIATRIC SURGERY 01/17/18 CARDIAC STENT PLACEMENT 02/15/2021 - 03/16/2021 EAR SURGERY Left Medical History Medical History Date Comments Anxiety 03/19/21 Heart disease 03/14/21 Sleep apnea 2011 Motion sickness CAD (coronary artery disease) Knee pain Hypertension Chest pain Myocardial infarction (HCC) Family History Medical History Relation Name Comments Diabetes Father David Heart attack Father David Heart disease Father David Hypertension Father David Obesity Father David No Known Problems Mother Anesthesia problems Neg Hx Malig Hypertension Neg Hx Malig Hyperthermia Neg Hx Pseudochol deficiency Neg Hx Relation Name Status Comments Father David Mother Social History Tobacco Use Types Packs/Day Years [...] on file Legal Sex Male 12:50 PM SURGEON PARTNER Gender Identity Not on file Sexual Orientation Not on file Obstetrics History Last Filed Vital Signs Vital Sign Reading Time Taken Comments Blood Pressure 102/68 05/24/2024 2:15 PM SURGEON PARTNER Pulse 69 05/24/2024 2:15 PM SURGEON PARTNER Temperature 36.8 C (98.3 F) 05/24/2024 2:15 PM SURGEON PARTNER Respiratory Rate 12 03/20/2024 3:27 PM SURGEON PARTNER Oxygen Saturation 97% 05/24/2024 2:15 PM SURGEON PARTNER Inhaled Oxygen Concentration - - Weight 107.5 kg (237 lb) 05/24/2024 2:15 PM SURGEON PARTNER Height 175.3 cm (5' 9 ) 05/24/2024 2:15 PM SURGEON PARTNER Body Mass Index 35 05/24/2024 2:15 PM SURGEON PARTNER Plan of Treatment Scheduled Procedures Name Priority Associated Diagnoses Date/Ti me ESOPHAGOGASTRODUODENOSCOPY Open Access Epigastric pain COLONOSCOPY Open Access Screening for colon cancer COLONOSCOPY Screen for colon cancer COLONOSCOPY Screening for colon cancer Health Maintenance Due Date Last Done Comments Hepatitis C Screening 1970 Hepatitis B Screening 07/22/1987 Regular Well Visit/Exam 18-64 07/22/1987 Pneumococcal vaccine <65 (1 of 2 - PCV) 1988 Zoster Vaccine (1 of 2) 07/22/2019 Depression Screening 11/11/2022 11/11/2021 Influenza Vaccine (#1) 2023 03/25/2022, 2016 Prostate Cancer Screening-PSA 05/24/2026 05/24/2024, 02/10/2022 Colon Cancer Screening-Colonoscopy 03/20/20272023 DTaP/Tdap/Td Vaccine (2 - Td or Tdap) 11/12/2031 Covid-19 Vaccine Discontinued 03/02/2021 Goals Goal Patient Goal Type Associated Problems [...] as needed Medical Devices Implanted Type Area Cash Processor Device Identifier Shelf Expiration Date Model / Serial / Lot Cardiac Stent Implanted:03/07 (Quantity not on file) N/A: Heart Medtronic Description:[place]-coronary Procedures Procedure Name Priority Date/Time Associated Diagnosis Comments PSA SCREEN Routine 05/24/2024 3:29 PM SURGEON PARTNER Difficulty in voiding URINALYSIS AND REFLEX TO MICROSCOPIC AND CULTURE Routine 05/24/2024 3:29 PM SURGEON PARTNER Difficulty in voiding COLONOSCOPY 03/20/2024 2:33 PM SURGEON PARTNER from Last 3 Months or Most Recently Relevant to Health Maintenance Results * PSA screen (05/24/2024 3:29 PM SURGEON PARTNER) PSA-Total 0.71 <=3.90 ng/mL Comment: Interpretive Data [...] last revised 21. Blood 05/24/2024 3:29 PM SURGEON PARTNER 05/24/2024 4:02 PM SURGEON PARTNER us Lisa Quezada [facility] BLOOD ORDERABLES Fi nal Result [facility] [place] [address] * Urinalysis reflex to microscopic and culture Urine, clean voided (05/24/2024 3:29 PM SURGEON PARTNER) Color, ur Straw Yellow Clarity, ur Clear Clear [facility] Specific gravity, ur 1.028 1.003 - 1.030 [facility] pH, urine 6.0 [facility] Comment: Interpretive Data U rine pH is affected by diet, medications, systemic acid-base disturbances, and renal tubular function. pH may affect urinary stone formation. For example, urine pH below 6.0 may help reduce the tendency for calcium phosphate stones and pH greater than 6.0 may reduce the tendency for uric acid stone formation. Source: [facility] Current Interpretive Data was last revised on 2017 Protein, ur ql Negative Negative [facility] Glucose, ur ql Negative Negative [facility] Ketones, ur Negative Negative [facility] Bilirubin, ur Negative Negative [facility] Blood, ur Negative Negative [facility] Urobilinogen, ur <2.0 <2.0 mg/dL [facility] Nitrite, ur Negative Negative [facility] Leukocyte esterase, ur Negative Negative [facility] UA reflex comment Reflex conditions for microscopic UA and culture not met. [facility] Urine, clean voided 05/24/2024 3:29 PM SURGEON PARTNER 05/24/2024 4:02 PM SURGEON PARTNER Lisa Quezada [facility] - [facility] ORDERABLES Final Result [facility] [place] [address] * Colonoscopy (03/20/2024 2:33 PM SURGEON PARTNER) Anatomical Region Laterality Modality Other Narrative Procedure Note Ramon Ding MD - 03/20/2024 2:33 PM [facility] Patient Name: Rafi Yepez Procedure Date: 03/20/2024 2:33 PM Date of : 1970 Admit Type: Outpatient Age: 53 Gender: Male Attending MD: Ramon Ding M.D. Room: [facility] ENDOSCOPY ROOM 4 Note Status: Finalized Procedure: [...] passed under direct vision.The CF HQ [id number] endoscope was introducedthrough the anus and advanced [...] one hemostatic clip was successfully placed. 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 Therewas no bleeding during, or at the [...] Most Recently Relevant to Health Maintenance [facility] Advance Directives For more information, please contact: [phone] * Full Code (Latest Code Status on File) Date Activated Date Inactivated Comments 03/20/2024 1:49 PM 03/20/2024 7:38 PM Care Teams Legal Support Manager Relationship Specialty Start Date End Date Opal Anderson MD PCP - General Internal Medicine 11/11/21
--- OUTSIDE RECORDS SUMMARY | 2024-07-08 11:48 | XMS_ITS | Encounter Summary ---
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
[2024-07-08 11:50] VITALS: BP 111/77; PULSE 55; RESP 16; O2SAT 99
--- NOTE | 2024-07-08 12:39 | ED.GENADULT ---
HPI - General Adult General Chief complaint: Chest Pain Stated complaint: chest pain Time Seen by Provider: 07/08/24 12:08 History of Present Illness HPI narrative: 53-year-old male presents emergency department for evaluation for chest pain that occurred approximately 3:00 a.m. this morning. Patient was waking up for work prefers not to the left-sided chest pain. Patient states he took a nitro this morning with no effect. Patient states the morning progressed became more midsternal. Patient does have a prior history of [place] in February of 2022 and does have 1 stent. Patient states his last stress test was at the end 2022 the beginning of 2023 and he does follow-up with Dr. Amaro. Patient states that the symptoms were continuing to worsen while he was at work. He does not feel that they were worsened specifically due to exertion or walking up stairs. Patient described a pulsing sensation in his chest. Patient does have a prior history of hiatal hernia. While patient does report having frequent issues with anginal chest pain and does follow-up with cardiology for this he has also had follow-up with GI and they did not feel that his chest pain was secondary to his hiatal hernia. Upon arrival to the emergency department patient was treated with aspirin and at time of evaluation patient states he has no current symptoms associated with the chest but does have some mild headache.. Related Data Home Medications ?Medication ?Instructions ?Recorded ?Confirmed ?Last Taken ?Type aspirin 81 mg tablet 81 mg PO DAILY 05/18/21 10/21/23 10/20/23 History clopidogrel 75 mg tablet (Plavix) 75 mg PO DAILY 05/18/21 10/21/23 07/15/23 08:00 History metoprolol succinate 50 mg 25 mg PO DAILY 05/18/21 10/21/23 07/15/23 08:00 History tablet,extended release 24 hr (Toprol XL) nitroglycerin 0.4 mg sublingual 0.4 mg sublingual PRN PRN Chest 05/18/21 10/21/23 06/19/22 16:00 History tablet (Nitrostat) Pain rosuvastatin 20 mg tablet (Crestor) 40 mg PO HS 05/18/21 10/21/23 07/14/23 20:00 History bupropion HCl 300 mg 24 hr tablet, 300 mg PO DAILY 06/19/22 10/21/23 07/14/23 22:00 History extended release acetaminophen 500 mg tablet 500 mg PO Q6H PRN Pain 07/15/23 10/21/23 Unknown History semaglutide 0.25 mg or 0.5 mg (2 0.5 mg subcut WEEKLY 07/15/23 10/21/23 07/13/23 08:00 History mg/3 mL) subcutaneous pen injector Allergies Allergy/AdvReac Type Severity Reaction Status Date / Time No Known Allergies Allergy Verified 07/08/24 10:40 Review of Systems Review of Systems: All systems reviewed & are unremarkable except as noted in HPI and below PMFSH Past Medical History Medical History Chest pain Coronary artery disease Hypertension Meniere disease Obstructive sleep apnea Paroxysmal atrial fibrillation Skin cancer Surgical History Surgical History History of coronary artery stent placement (02/2021) Family History Family History Father Diabetes mellitus Heart disease FH: CABG (coronary artery bypass surgery) Kidney calculi Sibling Diabetes mellitus Kidney calculi Mother COPD (chronic obstructive pulmonary disease) Social History Social History Social History: Surrogate medical decision maker: Deedee Yepez, spouse. Code status: Full code. Smoking status: Never smoker Alcohol intake: never Substance use: never Substance use type: does not use Do You Feel Safe in your Home?: Yes Lack of Transportation: No Lack of Food: Never True Current Housing: I Have Housing Concerned About Future Housing: No Difficulty Paying Gas/Electric Bills: No Difficulty Paying for Meds: No Currently Unemployed: No Education: Bachelor's Degree Difficulty w/ Childcare or Family Care: No Additional living arrangements comments: Lives in [place] with spouse. Originally from [place]. Additional occupation/education comments: Works at the [employer]. Spiritual care concerns: No Exam Narrative: APPEARANCE: Well appearing, no pain, no distress, well-nourished. HEAD: normocephalic, atraumatic. EYES: PERRLA/EOMI, conjunctivae clear. NOSE: Normal no drainage EARS:TMS clear with good light reflex. THROAT: Pharynx clear, no exudate. NECK: Supple. No adenopathy, no masses. RESPIRATORY: Airway patent, respirations nonlabored. Clear to auscultation bilaterally, no rales, rhonchi, wheezing. CARDIOVASCULAR: Regular rate and rhythm without murmurs rubs or gallops. ABDOMINAL: Soft, nontender, nondistended, normal bowel sounds MUSCULOSKELETAL: Moves all extremities. Strength/ROM intact, No edema, No calf tenderness. NEURO: Alert. Cranial nerves II through XII intact. Good gait. Good coordination SKIN: Warm, dry. Normal Color Course Vital Signs Vital signs: Vital Signs Temperature 97.5 F L 07/08/24 10:34 Pulse Rate 68 07/08/24 10:34 Respiratory Rate 16 07/08/24 10:34 Blood Pressure 113/76 07/08/24 10:34 Pulse Oximetry 97 07/08/24 10:34 Oxygen Delivery Room Air 07/08/24 10:34 Temperature 97.6 F 07/08/24 10:53 Pulse Rate 68 07/08/24 14:40 Respiratory Rate 15 07/08/24 14:40 Blood Pressure 119/79 07/08/24 14:40 Pulse Oximetry 99 07/08/24 14:40 Oxygen Delivery Room Air 07/08/24 10:53 Medical Decision Making MDM Narrative Medical decision making narrative: A 53-year-old male present to the emergency department for evaluation for chest pain. Patient is currently pain-free in the emergency department. Patient is afebrile with no leukocytosis and hemoglobin of 15.9. Patient's INR is 1.0. Patient has no acute abnormalities on his CMP and serial troponins are negative. Lipase was negative. Chest x-ray shows no acute cardiopulmonary abnormality. CTA was ordered to rule out for dissection and this was negative. Patient was encouraged of close follow-up with outpatient cardiology and with his primary care physician. Differential Diagnosis Differential Diagnosis: Dissection, ACS, STEMI, NSTEMI, pneumonia Vital Signs Vital Signs: Vital Signs Temperature 97.5 F L 07/08/24 10:34 Pulse Rate 68 07/08/24 10:34 Respiratory Rate 16 07/08/24 10:34 Blood Pressure 113/76 07/08/24 10:34 Pulse Oximetry 97 07/08/24 10:34 Oxygen Delivery Room Air 07/08/24 10:34 Temperature 97.6 F 07/08/24 10:53 Pulse Rate 68 07/08/24 14:40 Respiratory Rate 15 07/08/24 14:40 Blood Pressure 119/79 07/08/24 14:40 Pulse Oximetry 99 07/08/24 14:40 Oxygen Delivery Room Air 07/08/24 10:53 Lab Data Lab results reviewed: Yes I reviewed the patient's lab results. 07/08/24 10:24 07/08/24 10:24 Labs: Lab Results 07/08/24 07/08/24 Range/Units 10:24 13:35 WBC 6.6 (4.5-10.0) K/mm3 RBC 5.60 (4.6-6.20) M/mm3 Hgb 15.9 (14.0-18.0) g/dL Hct 49.1 (42.0-52.0) % MCV 87.7 (80-100) fl MCH 28.4 (26-34) pg MCHC 32.4 (32-36) g/dl RDW 11.9 (11.5-14.5) % Plt Count 183 (150-375) k/mm3 MPV 9.9 (7.4-10.4) fl Immature Gran % (Auto) 0.3 (0-0.5) % Neut % (Auto) 68.9 (45.5-73.1) % Lymph % (Auto) 17.7 L (18.3-44.2) % [place] % (Auto) 10.9 H (2.6-8.5) % Eos % (Auto) 1.7 (0-4.4) % Baso % (Auto) 0.5 (0.2-1.2) % Lymph # (Auto) 1.17 (0.9-3.2) K/mm3 [place] # (Auto) 0.7 H (0.1-0.6) K/mm3 Eos # (Auto) 0.1 (0-0.3) K/mm3 Baso # (Auto) 0.0 (0.0-0.1) K/mm3 Abs Immat Gran (auto) 0.02 (0.00-0.031) K/mm3 Absolute Neuts (auto) 4.6 (1.3-6.7) K/mm3 Absolute Nucleated RBC 0.000 (0.0-0.012) K/mm3 Nucleated RBC % 0.0 (0.0-0.2) % PT 13.6 (11.1-14.7) Seconds INR 1.0 APTT 25.5 (22.3-36.8) Seconds Sodium 139 (137-145) mmol/L Potassium 4.5 (3.4-5.0) mmol/L Chloride 102 (98-107) mmol/L Carbon Dioxide 29 (22-30) mmol/L Anion Gap 8 (4-12) mmol/L BUN 19 (9-20) mg/dL Creatinine 1.07 (0.7-1.3) mg/dL Estim Creat Clear Calc 85 ml/min Estimated GFR > 60 (59 - ) Glucose 102 (65-110) mg/dL Calcium 9.2 (8.4-10.2) mg/dL Total Bilirubin 0.9 (0.2-1.3) mg/dL AST 28 (17-59) U/L ALT 36 (6-50) U/L Alkaline Phosphatase 79 (38-126) U/L Troponin I < 0.012 < 0.012 (0.000-0.034) ng/mL Total Protein 7.0 (6.3-8.2) g/dL Albumin 4.6 (3.5-5.1) g/dL Lipase 91 (23-300) U/L Imaging Data Radiologist's impression: Impressions Chest X-Ray 07/08/24 11:13 IMPRESSION: No acute cardiopulmonary pathology. Chest/Abdomen/Pelvis CTA 07/08/24 13:35 IMPRESSION: 1. Normal aorta with no aneurysm or dissection. No other acute cardiopulmonary disease or acute intra-abdominal/pelvic process. 2. Small sliding-type hiatal hernia with change of prior sleeve gastrectomy. ECG Data EKG #1: EKG Interpretation: normal rate, sinus rhythm, non-specific ST changes, normal QRS, normal QT and no acute changes Discharge Plan Discharge Clinical Impression: Chest pain Qualifiers: Chest pain type: unspecified Qualified Code(s): R07.9 - Chest pain, unspecified Patient Disposition: Home, Self-Care Condition: Stable Instructions: Antibiotic Form, Chest Pain (ED) Additional Instructions: Have close follow-up with Cardiology and your primary care physician as outpatient for further outpatient cardiac testing. If you have any worsening symptoms then please call or return to the emergency department. Patient Language: Kyrgyz Prescriptions: No Action metoprolol succinate [Toprol XL] 50 mg tablet extended release 24 hr 25 mg PO DAILY clopidogrel [Plavix] 75 mg tablet 75 mg PO DAILY nitroglycerin [Nitrostat] 0.4 mg tablet, sublingual 0.4 mg sublingual PRN PRN (Reason: Chest Pain) aspirin 81 mg Tablet 81 mg PO DAILY rosuvastatin [Crestor] 20 mg tablet 40 mg PO HS bupropion HCl 300 mg tablet extended release 24 hr 300 mg PO DAILY acetaminophen 500 mg Tablet 500 mg PO Q6H PRN (Reason: Pain) semaglutide 0.25 mg or 0.5 mg (2 mg/3 mL) Pen Injector 0.5 mg SUBCUT WEEKLY Rx Instructions: Pt takes on . pantoprazole 40 mg Tablet,Delayed Release (Dr/Ec) 40 mg PO Q12HR Qty: 60 0RF Follow-up/Referrals: UNKNOWN,DOCTOR [Primary Care Provider] - Quality HEART score for chest pain patients History: slightly suspicious ECG: normal Age: > 45 and < 65 years Risk factors: 1 or 2 risk factors Troponin: < or = to 1x normal limit Heart score: 2
--- NOTE | 2024-07-08 13:23 | ECG_ITS ---
Test Date: 2024-07-08 13:32:46 Measurements Intervals [place] Rate: 62 P: 47 NM: 164 QRS: 7 QRSD: 105 T: 37 QT: 432 QTc: 441 Interpretive Statements SINUS RHYTHM INCOMPLETE RIGHT BUNDLE BRANCH BLOCK [90+ ms QRS DURATION, TERMINAL R IN V1/V2, 40+ ms S IN I/aVL/V4/V5/V6] Compared to ECG 07/08/2024 10:17:29 No significant changes Electronically Signed On 07-09-2024 15:32:16 CDT by Reina Gallegos M.D.
[2024-07-08 14:09] LABS: Troponin I < 0.012 ng/mL (0.000-0.034)
[2024-07-08 14:40] VITALS: BP 119/79; PULSE 68; RESP 15; O2SAT 99
== END 2024-07-08 14:43 | disposition home or self-care (01) ==
PROVIDERS: Emergency Medicine; Emergency Provider Emergency Medicine
DX: R07.9 Chest pain, unspecified (principal); Z79.82 Long term (current) use of aspirin; Z79.02 Long term (current) use of antithrombotics/antiplatelets; I25.10 Atherosclerotic heart disease of native coronary artery without angina pectoris; I10 Essential (primary) hypertension; G47.33 Obstructive sleep apnea (adult) (pediatric); I48.0 Paroxysmal atrial fibrillation
CPT/HCPCS: 36415; 71046; 71275; 74174; 80053; 83690; 84484; 85025; 85610; 85730; 93005; 99284; A9270; Q9967

== ENCOUNTER 2024-09-02 01:00 | Emergency (ER) | payer OTHER, SELFPAY ==
[2024-09-02] VITALS (11 sets, daily range): BP systolic 107–127; BP diastolic 58–90; PULSE 53–96; RESP 14–22; TEMP 36.5; O2SAT 95–99
--- NOTE | ~2024-09-02 | XR_ITS ---
XR chest 1V portable Ordering provider: Zainab Hebert History: 54 years Male with . CHEST PAIN . . Comparison: July 08, 2024 FINDINGS: MEDIASTINUM: The cardiac silhouette is slightly enlarged. LUNGS: No infiltrates, effusions or pneumothorax. OTHER: No free air under the diaphragm. Degenerative the spine. IMPRESSION: No acute cardiopulmonary pathology. Reviewed, dictated and finalized at location A.
--- NOTE | 2024-09-02 01:02 | ECG_ITS ---
Test Date: 2024-09-02 01:10:11 Measurements Intervals [place] Rate: 90 P: 25 [place]: 143 QRS: -31 QRSD: 102 T: 29 QT: 373 QTc: 459 Interpretive Statements SINUS RHYTHM LEFT AXIS DEVIATION [QRS AXIS < -30] INCOMPLETE RIGHT BUNDLE BRANCH BLOCK [90+ ms QRS DURATION, TERMINAL R IN V1/V2, 40+ ms S IN I/aVL/V4/V5/V6] Compared to ECG 07/08/2024 13:32:46 Left-axis deviation now present Electronically Signed On 09-02-2024 10:47:35 CDT by Michael Ham M.D.
--- OUTSIDE RECORDS SUMMARY | 2024-09-02 01:03 | XMS_ITS | Encounter Summary ---
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
--- OUTSIDE RECORDS SUMMARY | 2024-09-02 01:03 | XMS_ITS | Encounter Summary ---
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
--- OUTSIDE RECORDS SUMMARY | 2024-09-02 01:03 | XMS_ITS | Clinical Summary ---
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 does not think his symptoms are cardiac [...] PT and is following with Ortho at [place] -was given a steroid injection by ortho [...] artery disease of n ative artery of [place] heart with stable angina pectoris 06/23/2022 Anxiety [...] Encounters Date Type Department Care Team Description 07/16/2024 10:30 AM CDT Office Visit [facility] Department of Psychiatry [address] [place] [phone] Ana Rowley NP Illness anxiety disorder (Primary Dx); Anxiety 06/18/2024 10:30 AM VOICE COACH Office Visit [facility] Department of Psychiatry [address] [place] [phone] Ana Rowley NP Illness anxiety disorder (Primary Dx); Anxiety 06/12/2024 Telephone [facility] Gastroenterology [address] [place] [address] Medicine 12th [place] [address] [place] [address] Evon Meehan GI SCHEDULING (EGD) from Last 3 Months Immunizations Immunization Administration [...] on file Legal Sex Male 12:50 PM VOICE COACH Gender Identity Not on file Sexual Orientation Not on file Obstetrics History Last Filed Vital Signs Vital Sign Reading Time Taken Comments Blood Pressure 102/68 05/24/2024 2:15 PM VOICE COACH Pulse 69 05/24/2024 2:15 PM VOICE COACH Temperature 36.8 C (98.3 F) 05/24/2024 2:15 PM VOICE COACH Respiratory Rate 12 03/20/2024 3:27 PM VOICE COACH Oxygen Saturation 97% 05/24/2024 2:15 PM VOICE COACH Inhaled Oxygen Concentration - - Weight 107.5 kg (237 lb) 05/24/2024 2:15 PM VOICE COACH Height 175.3 cm (5' 9 ) 05/24/2024 2:15 PM VOICE COACH Body Mass Index 35 05/24/2024 2:15 PM VOICE COACH Plan of Treatment Scheduled Procedures Name Priority [...] 07/22/2019 Depression Screening 11/11/2022 11/11/2021 Influenza Vaccine (Season Ended) 2024 03/25/20, 02/15/2017 Prostate Cancer Screening-PSA 05/24/2026 05/24/2024, 02/10/2022 Colon [...] as needed Medical Devices Implanted Type Area Inside Sales Engineer Device Identifier Shelf Expiration Date Model / Serial / Lot Cardiac Stent Implanted:03/07 (Quantity not on file) N/A: Heart Medtronic Description:Oschner-New D[place] ans-coronary Procedures Procedure Name Priority Date/Time Associated Diagnosis Comments PSA SCREEN Routine 05/24/2024 3:29 PM VOICE COACH Difficulty in voiding COLONOSCOPY 03/20/2024 2:33 PM VOICE COACH from Last 3 Months or Most Recently Relevant to Health Maintenance Results * PSA screen (05/24/2024 3:29 PM VOICE COACH) PSA-Total 0.71 <=3.90 ng/mL Comment: Interpretive Data [...] last revised 21. Blood 05/24/2024 3:29 PM VOICE COACH 05/24/2024 4:02 PM VOICE COACH us Lisa Allen NP LAB BLOOD ORDERABLES Amna winter Result [facility] Department [place] [address] * Colonoscopy (03/20/2024 2:33 PM VOICE COACH) Anatomical Region Laterality Modality Other Narrative Procedure Note Ramon Ding MD - 03/20/2024 2:33 PM CST [facility]OS[facility] Patient Name: Rafi Yepez Procedure Date: 03/20/2024 2:33 PM Date of : 1970 Admit Type: Outpatient Age: 53 Gender: Male Attending MD: Ramon Ding M.D. Room: [facility] ENDOSCOPY ROOM 4 Note Status: Finalized Procedure: [...] passed under direct vision.The CF HQ 190L [id number] endoscope was introducedthrough the anus and advanced [...] one hemostatic clip was successfully placed. 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 Therewas no bleeding during, or at the [...] Most Recently Relevant to Health Maintenance Insurance [place], [place] [id number] [facility] [employer] [facility] H[facility] Advance Directives For more information, please contact: [phone] * Full Code (Latest Code Status on File) Date Activated Date Inactivated Comments 03/20/2024 1:49 PM 03/20/2024 7:38 PM Care Teams Stock Hanger Relationship Specialty Start Date End Date Opal Anderson MD PCP - General Internal Medicine 11/11/21
--- OUTSIDE RECORDS SUMMARY | 2024-09-02 01:03 | XMS_ITS | Referral Summary ---
Author Organization [facility] [address] Address [address] [place] [address] Care Team Providers Care Tomato Grader Name Role Phone Opal Anderson MD Primary Care Provider Encounters Date Type Department Care Team Description 07/16/2024 10:30 AM CDT Office Visit [facility] Department of Psychiatry [address] [place] [address] Ana Rowley NP Illness anxiety disorder (Primary Dx); Anxiety 06/18/2024 10:30 AM PHOTOVOLTAIC POWER SYSTEMS ENGINEER Office Visit [facility] Department of Psychiatry [address] [place] [address] Ana Rowley NP Illness anxiety disorder (Primary Dx); Anxiety 06/12/2024 Telephone [facility] Gastroenterology [address] [place] [address] 12th [place] [address] [place] [address] Evon Meehan GI SCHEDULING (EGD) from Last 3 Months Allergies No known active allergies Medications ASPIRIN ORALIndications: prevention of thrombosis,Hx [place] Take 81 mg by mouth nightly 1 [...] work up and 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 me 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3 F) 05/24/2024 2:15 PM PHOTOVOLTAIC POWER SYSTEMS ENGINEER Respiratory Rate 12 03/20/2024 3:27 PM PHOTOVOLTAIC POWER SYSTEMS ENGINEER Oxygen Saturation 97% 05/24/2024 2:15 PM PHOTOVOLTAIC POWER SYSTEMS ENGINEER Inhaled Oxygen Concentration - - Weight 107.5 kg (237 lb) 05/24/2024 2:15 PM PHOTOVOLTAIC POWER SYSTEMS ENGINEER Height 175.3 cm (5' 9 ) 05/24/2024 2:15 PM PHOTOVOLTAIC POWER SYSTEMS ENGINEER Body Mass Index 35 05/24/2024 2:15 PM PHOTOVOLTAIC POWER SYSTEMS ENGINEER Plan of Treatment Scheduled Procedures Name Priority [...] as needed Medical Devices Implanted Type Area Leather Skinner Device Identifier Shelf Expiration Date Model / Serial / Lot Cardiac Stent Implanted:03/07 (Quantity not on file) N/A: Heart Medtronic Description:[place] ans-coronary Procedures Procedure Name Priority Date/Time Associated Diagnosis Comments PSA SCREEN Routine 05/24/2024 3:29 PM PHOTOVOLTAIC POWER SYSTEMS ENGINEER Difficulty in voiding COLONOSCOPY 03/20/2024 2:33 PM PHOTOVOLTAIC POWER SYSTEMS ENGINEER from Last 3 Months or Most Recently Relevant to Health Maintenance Results * PSA screen (05/24/2024 3:29 PM PHOTOVOLTAIC POWER SYSTEMS ENGINEER) PSA-Total 0.71 <=3.90 ng/mL Comment: Interpretive Data [...] last revised 21. Blood 05/24/2024 3:29 PM PHOTOVOLTAIC POWER SYSTEMS ENGINEER 05/24/2024 4:02 PM PHOTOVOLTAIC POWER SYSTEMS ENGINEER us Lisa Allen NP LAB BLOOD ORDERABLES Amna winter Result [facility] Department [place] [address] * Colonoscopy (03/20/2024 2:33 PM PHOTOVOLTAIC POWER SYSTEMS ENGINEER) Anatomical Region Laterality Modality Other Narrative Procedure Note Ramon Ding MD - 03/20/2024 2:33 PM CST [facility] Patient Name: Rafi Yepez Procedure Date: 03/20/2024 2:33 PM Date of : 1970 Admit Type: Outpatient Age: 53 Gender: Male Attending MD: Ramon Ding M.D. Room: [facility] ENDOSCOPY ROOM 4 Note Status: Finalized [...] passed under direct vision.The CF HQ 190L 2200-680 endoscope was introducedthrough the anus and advanced [...] one hemostatic clip was successfully placed. 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 Therewas no bleeding during, or at [...] Most Recently Relevant to Health Maintenance Insurance [facility] [employer] [facility] Advance Directives For more information, please contact: [phone] * Full Code (Latest Code Status on File) Date Activated Date Inactivated Comments 03/20/2024 1:49 PM 03/20/2024 7:38 PM Care Teams Tomato Grader Relationship Specialty Start Date End Date Opal Anderson MD PCP - General Internal Medicine 11/11/21
--- OUTSIDE RECORDS SUMMARY | 2024-09-02 01:03 | XMS_ITS ---
Author Organization Unknown Patient Care team information Name Category Status Period Participants - - Proposed period not known -
[2024-09-02] MEDS: ASPIRIN 81 MG CHEWABLE TABLET 324 MG PO (01:15)
[2024-09-02 01:26] LABS: Basophils Percent Auto 0.3 % (0.2-1.2); Eosinophils Absolute Auto 0.2 K/mm3 (0-0.3); Eosinophils Percent Auto 2.4 % (0-4.4); Hematocrit 47.1 % (42.0-52.0); Hemoglobin 15.1 g/dL (14.0-18.0); Immature Granulocyte Absolute 0.01 K/mm3 (0.00-0.031); Immature Granulocyte Percent A 0.2 % (0-0.5); Lymphocytes Absolute Auto 1.73 K/mm3 (0.9-3.2); Lymphocytes Percent Auto 27.6 % (18.3-44.2); Mean Corpuscular HGB Conc 32.1 g/dl (32-36); Mean Corpuscular Volume 87.2 fl (80-100); Monocytes Absolute Auto 0.9 K/mm3 (0.1-0.6); Monocytes Percent Auto 13.6 % (2.6-8.5); Neutrophils Absolute Auto 3.5 K/mm3 (1.3-6.7); Neutrophils Percent Auto 55.9 % (45.5-73.1); Platelet Count Result 179 k/mm3 (150-375); Red Cell Distribution Width 11.7 % (11.5-14.5); White Blood Count 6.3 K/mm3 (4.5-10.0)
[2024-09-02 01:34] LABS: Alanine Aminotransferase 31 U/L (6-50); Albumin Level 4.3 g/dL (3.5-5.1); Alkaline Phosphatase 74 U/L (38-126); Anion Gap 9 mmol/L (4-12); Aspartate Amino Transferase 39 U/L (17-59); Bilirubin,Total 0.7 mg/dL (0.2-1.3); Blood Urea Nitrogen 23 mg/dL (9-20); Calcium 8.7 mg/dL (8.4-10.2); Carbon Dioxide 26 mmol/L (22-30); Chloride 106 mmol/L (98-107); Estimated CRCL calculation 86 ml/min; Estimated Glomerular Filt Rate > 60; Glucose 92 mg/dL (65-110); Lipase 180 U/L (23-300); Potassium 3.8 mmol/L (3.4-5.0); Sodium 141 mmol/L (137-145)
[2024-09-02 01:37] LABS: INR 0.9; Prothrombin Time 12.9 Seconds (11.1-14.7)
[2024-09-02 01:38] LABS: Partial Thromboplastin Time 25.5 Seconds (22.3-36.8)
[2024-09-02 01:45] LABS: Troponin I < 0.012 ng/mL (0.000-0.034)
--- OUTSIDE RECORDS SUMMARY | 2024-09-02 02:06 | XMS_ITS | Encounter Summary ---
Author Organization [facility] Address [address] [place] [address] Care Team Providers Care Maintenance Apprentice Name Role Phone Opal Anderson MD Primary Care Provider Reason for Visit * Reason Onset Date Comments ready to schedule 10/24/2023 Encounter Details Date Type Department Care Team (Late st Contact Info) Description 10/24/2023 Telephone [facility] Specialty Services [address] [place] [phone] Miscellaneous, Not In File ready to schedule [...] on file Legal Sex Male 12:50 PM ASSOCIATE PASTOR Gender Identity Not on file Sexual Orientation [...] on filedocumented in this encounter Care Teams Maintenance Apprentice Relationship Specialty Start Date End Date Opal Anderson MD PCP - General Internal Medicine 11/11/21 documented as of this encounter
--- OUTSIDE RECORDS SUMMARY | 2024-09-02 02:06 | XMS_ITS | Referral Summary ---
Author Organization [facility] [address] Address [address] [place] [address] Care Team Providers Care Frame Pulley Mortising Machine Operator Name Role Phone Opal Anderson MD Primary Care Provider Encounters Date Type Department Care Team Description 07/16/2024 10:30 AM CDT Office Visit [facility] Department of Psychiatry [address] [place] [address] Ana Rowley NP Illness anxiety disorder (Primary Dx); Anxiety 06/18/2024 10:30 AM JEWELRY CUTTER Office Visit [facility] Department of Psychiatry [address] [place] [address] Ana Rowley NP Illness anxiety disorder (Primary Dx); Anxiety 06/12/2024 Telephone [facility] Gastroenterology [address] [place] [address] 12th [place] [address] [place] [address] Evon Meehan GI SCHEDULING (EGD) from Last 3 Months Allergies No known active allergies Medications ASPIRIN ORALIndications: prevention of thrombosis,Hx [place] Take 81 mg by mouth nightly 1 [...] work up and 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 me 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 think his symptoms are cardiac [...] PT and is following with Ortho at [place] -was given a steroid injection by ortho [...] artery disease of n ative artery of [place] heart with stable angina pectoris 06/23/2022 Anxiety [...] on file Legal Sex Male 12:50 PM JEWELRY CUTTER Gender Identity Not on file Sexual Orientation Not on file Last Filed Vital Signs Vital Sign Reading Time Taken Comments Blood Pressure 102/68 05/24/2024 2:15 PM JEWELRY CUTTER Pulse 69 05/24/2024 2:15 PM JEWELRY CUTTER Temperature 36.8 C (98.3 F) 05/24/2024 2:15 PM JEWELRY CUTTER Respiratory Rate 12 03/20/2024 3:27 PM JEWELRY CUTTER Oxygen Saturation 97% 05/24/2024 2:15 PM JEWELRY CUTTER Inhaled Oxygen Concentration - - Weight 107.5 kg (237 lb) 05/24/2024 2:15 PM JEWELRY CUTTER Height 175.3 cm (5' 9 ) 05/24/2024 2:15 PM JEWELRY CUTTER Body Mass Index 35 05/24/2024 2:15 PM JEWELRY CUTTER Plan of Treatment Scheduled Procedures Name Priority [...] as needed Medical Devices Implanted Type Area Spice Mixer Device Identifier Shelf Expiration Date Model / Serial / Lot Cardiac Stent Implanted:03/07 (Quantity not on file) N/A: Heart Medtronic Description:[place] ans-coronary Procedures Procedure Name Priority Date/Time Associated Diagnosis Comments PSA SCREEN Routine 05/24/2024 3:29 PM JEWELRY CUTTER Difficulty in voiding COLONOSCOPY 03/20/2024 2:33 PM JEWELRY CUTTER from Last 3 Months or Most Recently Relevant to Health Maintenance Results * PSA screen (05/24/2024 3:29 PM JEWELRY CUTTER) PSA-Total 0.71 <=3.90 ng/mL Comment: Interpretive Data [...] last revised 21. Blood 05/24/2024 3:29 PM JEWELRY CUTTER 05/24/2024 4:02 PM JEWELRY CUTTER us Lisa Allen NP LAB BLOOD ORDERABLES Amna winter Result [facility] Department [place] [address] * Colonoscopy (03/20/2024 2:33 PM JEWELRY CUTTER) Anatomical Region Laterality Modality Other Narrative Procedure Note Ramon Ding MD - 03/20/2024 2:33 PM CST [facility] Patient Name: Rafi Yepez Procedure Date: 03/20/2024 2:33 PM Date of : 1970 Admit Type: Outpatient Age: 53 Gender: Male Attending MD: Ramon Ding M.D. Room: [facility] ENDOSCOPY ROOM 4 Note Status: Finalized [...] passed under direct vision.The CF HQ 190L 220-680 endoscope was introducedthrough the anus and advanced [...] one hemostatic clip was successfully placed. 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 Therewas no bleeding during, or at the [...] Most Recently Relevant to Health Maintenance Insurance [facility] Advance Directives For more information, please contact: [phone] * Full Code (Latest Code Status on File) Date Activated Date Inactivated Comments 03/20/2024 1:49 PM 03/20/2024 7:38 PM Care Teams Frame Pulley Mortising Machine Operator Relationship Specialty Start Date End Date Opal Anderson MD PCP - General Internal Medicine 11/11/21
--- OUTSIDE RECORDS SUMMARY | 2024-09-02 02:06 | XMS_ITS | Encounter Summary ---
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
--- OUTSIDE RECORDS SUMMARY | 2024-09-02 02:06 | XMS_ITS | Clinical Summary ---
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 Department of Psychiatry [address] [place] [phone] Ana Rowley NP Illness anxiety disorder (Primary Dx); Anxiety 06/18/2024 10:30 AM APARTMENT LEASING AGENT Office Visit [facility] Department of Psychiatry [address] [place] [phone] Ana Rowley NP Illness anxiety disorder (Primary Dx); Anxiety 06/12/[address] [facility] Gastroenterology [address] [place] [address] Medicine 12th [place] [address] [place] [address] Evon Meehan GI SCHEDULING (EGD) [...] on file Legal Sex Male 12:50 PM APARTMENT LEASING AGENT Gender Identity Not on file Sexual Orientation Not on file Obstetrics History Last Filed Vital Signs Vital Sign Reading Time Taken Comments Blood Pressure 102/68 05/24/2024 2:15 PM APARTMENT LEASING AGENT Pulse 69 05/24/2024 2:15 PM APARTMENT LEASING AGENT Temperature 36.8 C (98.3 F) 05/24/2024 2:15 PM APARTMENT LEASING AGENT Respiratory Rate 12 03/20/2024 3:27 PM APARTMENT LEASING AGENT Oxygen Saturation 97% 05/24/2024 2:15 PM APARTMENT LEASING AGENT Inhaled Oxygen Concentration - - Weight 107.5 kg (237 lb) 05/24/2024 2:15 PM APARTMENT LEASING AGENT Height 175.3 cm (5' 9 ) 05/24/2024 2:15 PM APARTMENT LEASING AGENT Body Mass Index 35 05/24/2024 2:15 PM APARTMENT LEASING AGENT Plan of Treatment Scheduled Procedures Name Priority [...] as needed Medical Devices Implanted Type Area Senior Catering Sales Manager Device Identifier Shelf Expiration Date Model / Serial / Lot Cardiac Stent Implanted:03/07 (Quantity not on file) N/A: Heart Medtronic Description:[place] ans-coronary Procedures Procedure Name Priority Date/Time Associated Diagnosis Comments PSA SCREEN Routine 05/24/2024 3:29 PM APARTMENT LEASING AGENT Difficulty in voiding COLONOSCOPY 03/20/2024 2:33 PM APARTMENT LEASING AGENT from Last 3 Months or Most Recently Relevant to Health Maintenance Results * PSA screen (05/24/2024 3:29 PM APARTMENT LEASING AGENT) PSA-Total 0.71 <=3.90 ng/mL Comment: Interpretive Data [...] last revised 21. Blood 05/24/2024 3:29 PM APARTMENT LEASING AGENT 05/24/2024 4:02 PM APARTMENT LEASING AGENT us Lisa Allen NP LAB BLOOD ORDERABLES Amna winter Result [facility] Department [place] [address] * Colonoscopy (03/20/2024 2:33 PM APARTMENT LEASING AGENT) Anatomical Region Laterality Modality Other Narrative Procedure Note Ramon Ding MD - 03/20/2024 2:33 PM CST [facility] Patient Name: Rafi Yepez Procedure Date: 03/20/2024 2:33 PM Date of : 1970 Admit Type: Outpatient Age: 53 Gender: Male Attending MD: Ramon Ding M.D. Room: [facility] ENDOSCOPY ROOM 4 Note Status: Finalized Procedure: [...] passed under direct vision.The CF HQ 190L [id number] endoscope was introducedthrough the anus and advanced [...] one hemostatic clip was successfully placed. Clip aircraft stress analyst: [employer]. Therewas no bleeding during, or at the [...] Most Recently Relevant to Health Maintenance Insurance [place], [place] [id number] [facility] [employer] [facility] H[facility] Advance Directives For more information, please contact: [phone] * Full Code (Latest Code Status on File) Date Activated Date Inactivated Comments 03/20/2024 1:49 PM 03/20/2024 7:38 PM Care Teams Wet Pour Supervisor Relationship Specialty Start Date End Date Opal Anderson MD PCP - General Internal Medicine 11/11/21
--- NOTE | 2024-09-02 04:17 | ECG_ITS ---
Test Date: 2024-09-02 04:21:09 Measurements Intervals [place] Rate: 64 P: 56 OK: 172 QRS: -12 QRSD: 107 T: 29 QT: 418 QTc: 433 Interpretive Statements SINUS RHYTHM INCOMPLETE RIGHT BUNDLE BRANCH BLOCK BORDERLINE LEFT AXIS DEVIATION Compared to ECG 09/02/2024 01:10:11 NO SIGNIFICANT CHANGE Electronically Signed On 09-02-2024 10:50:36 CDT by Michael Ham M.D.
[2024-09-02 05:00] LABS: Troponin I < 0.012 ng/mL (0.000-0.034)
--- NOTE | 2024-09-02 05:30 | ED.CHESTPAIN ---
HPI - Chest Pain General Chief Complaint: Chest Pain Stated Complaint: chest pain, took nitro Time Seen by Provider: 09/02/24 01:16 History of Present Illness HPI narrative: Patient woken out of sleep with sharp pain to his chest, has not had this happen in the past, he took nitroglycerin and called EMS and when they arrived gave him aspirin, since then his pain has subsided quite a bit. Pain is nonradiating, with some slight shortness of breath nausea. Related Data Home Medications Medication Instructions Recorded Confirmed Last Taken Type aspirin 81 mg tablet 81 mg PO DAILY 05/18/21 10/21/23 10/20/23 History clopidogrel 75 mg tablet (Plavix) 75 mg PO DAILY 05/18/21 10/21/23 07/15/23 08:00 History metoprolol succinate 50 mg 25 mg PO DAILY 05/18/21 10/21/23 07/15/23 08:00 History tablet,extended release 24 hr (Toprol XL) nitroglycerin 0.4 mg sublingual 0.4 mg sublingual PRN PRN Chest 05/18/21 10/21/23 06/19/22 16:00 History tablet (Nitrostat) Pain rosuvastatin 20 mg tablet (Crestor) 40 mg PO HS 05/18/21 10/21/23 07/14/23 20:00 History bupropion HCl 300 mg 24 hr tablet, 300 mg PO DAILY 06/19/22 10/21/23 07/14/23 22:00 History extended release acetaminophen 500 mg tablet 500 mg PO Q6H PRN Pain 07/15/23 10/21/23 Unknown History semaglutide 0.25 mg or 0.5 mg (2 0.5 mg subcut WEEKLY 07/15/23 10/21/23 07/13/23 08:00 History mg/3 mL) subcutaneous pen injector Allergies Allergy/AdvReac Type Severity Reaction Status Date / Time No Known Allergies Allergy Verified 09/02/24 01:14 Review of Systems Review of Systems: All systems reviewed & are unremarkable except as noted in HPI and below PMFSH Past Medical History Medical History Chest pain Coronary artery disease Hypertension Meniere disease Obstructive sleep apnea Paroxysmal atrial fibrillation Skin cancer Surgical History Surgical History History of coronary artery stent placement (02/2021) Family History Family History Father Diabetes mellitus Heart disease FH: CABG (coronary artery bypass surgery) Kidney calculi Sibling Diabetes mellitus Kidney calculi Mother COPD (chronic obstructive pulmonary disease) Social History Social History Social History: Surrogate medical decision maker: eDedee Yepez, spouse. Code status: Full code. Smoking status: Never smoker Alcohol intake: never Substance use: never Substance use type: does not use Do You Feel Safe in your Home?: Yes Lack of Transportation: No Lack of Food: Never True Current Housing: I Have Housing Concerned About Future Housing: No Difficulty Paying Gas/Electric Bills: No Difficulty Paying for Meds: No Currently Unemployed: No Education: Bachelor's Degree Difficulty w/ Childcare or Family Care: No Additional living arrangements comments: Lives in [place] with spouse. Originally from [place]. Additional occupation/education comments: Works at the [employer]. Spiritual care concerns: No Exam Narrative: EXAMINATION OF ORGAN SYSTEMS/BODY AREAS: Constitutional: Vital signs per nursing GENERAL:[No acute distress, non-toxic appearing.] HEAD: Normal with no signs of head trauma. EYES: EOMI, conjunctiva normal ENT: Hearing grossly intact LUNGS: Nonlabored breathing. HEART: [Regular rate and rhythm], normal equal bilateral radial and DP pulses ABD: [Soft], [nontender to palpation] EXT: Normal range of motion SKIN: [No rashes or lesions.] NEURO: [Alert and oriented x 3. No gross focal sensory or strength deficits.] PSYCH: Normal affect Course Vital Signs Vital signs: Vital Signs Pulse Rate 92 09/02/24 01:12 Respiratory Rate 17 09/02/24 01:12 Blood Pressure 127/90 09/02/24 01:12 Pulse Oximetry 97 09/02/24 01:12 Temperature 97.7 F 09/02/24 01:13 Pulse Rate 53 L 09/02/24 05:23 Respiratory Rate 16 09/02/24 05:23 Blood Pressure 107/58 L 09/02/24 05:23 Pulse Oximetry 98 09/02/24 05:23 Oxygen Delivery Room Air 09/02/24 01:13 MDM - Chest Pain MDM Narrative Medical decision making narrative: ED COURSE AND MEDICAL DECISION MAKIN-year-old male with history of prior MA presenting with chest pain. EKG done in triage negative for acute ischemic changes. Cardiac workup is initiated. EKG: Performed in triage and interpreted by me. Normal sinus rhythm. Rate 90. Left axis. NC normal. QRS duration normal. QTc normal. No ST segment elevation or depression to suggest acute ischemia. Chest x-ray on my independent interpretation shows no obvious consolidation or pneumothorax HEART score is 3 with no acute ischemic changes on EKG and negative two troponins. No DVT symptoms making PE unlikely. Presentation not consistent with dissection or aneurysm without radiation of pain or pulse deficits. CXR negative for mediastinal widening. No abdominal pain or signs of sepsis that would be concerning for esophageal perforation or mediastinitis. No cardiomegaly or JVD to suggest pericardial effusion/tamponade. Repeat EKG shows sinus rhythm rate 64, 172 NC, QRS 107, QTC 433, normal axis, no significant ST elevations or depressions or signs of acute ischemia On repeat evaluation just prior to discharge, the patient is no acute distress. I had a long discussion with the patient and at bedside, did offer possible admission, and with shared decision making, he is comfortable with outpatient management and would rather go home at this time, since they only live a few minutes away. He was given clear return instructions by myself in person as well as on discharge paperwork. I have asked him to call his sonoscope operator today for close follow-up and he may need possible elective catheterization if he is continuing to have episodes of chest pain, and he is agreeable to this plan. Lab Data 09/02/24 01:16 09/02/24 01:16 Labs: Lab Results 09/02/24 09/02/24 Range/Units 01:16 04:21 WBC 6.3 (4.5-10.0) K/mm3 RBC 5.40 (4.6-6.20) M/mm3 Hgb 15.1 (14.0-18.0) g/dL Hct 47.1 (42.0-52.0) % MCV 87.2 (80-100) fl MCH 28.0 (26-34) pg MCHC 32.1 (32-36) g/dl RDW 11.7 (11.5-14.5) % Plt Count 179 (150-375) k/mm3 MPV 10.0 (7.4-10.4) fl Immature Gran % (Auto) 0.2 (0-0.5) % Neut % (Auto) 55.9 (45.5-73.1) % Lymph % (Auto) 27.6 (18.3-44.2) % Sheridan % (Auto) 13.6 H (2.6-8.5) % Eos % (Auto) 2.4 (0-4.4) % Baso % (Auto) 0.3 (0.2-1.2) % Lymph # (Auto) 1.73 (0.9-3.2) K/mm3 [place]idan # (Auto) 0.9 H (0.1-0.6) K/mm3 Eos # (Auto) 0.2 (0-0.3) K/mm3 Baso # (Auto) 0.0 (0.0-0.1) K/mm3 Abs Immat Gran (auto) 0.01 (0.00-0.031) K/mm3 Absolute Neuts (auto) 3.5 (1.3-6.7) K/mm3 Absolute Nucleated RBC 0.000 (0.0-0.012) K/mm3 Nucleated RBC % 0.0 (0.0-0.2) % PT 12.9 (11.1-14.7) Seconds INR 0.9 APTT 25.5 (22.3-36.8) Seconds Sodium 141 (137-145) mmol/L Potassium 3.8 (3.4-5.0) mmol/L Chloride 106 (98-107) mmol/L Carbon Dioxide 26 (22-30) mmol/L Anion Gap 9 (4-12) mmol/L BUN 23 H (9-20) mg/dL Creatinine 1.04 (0.7-1.3) mg/dL Estim Creat Clear Calc 86 ml/min Estimated GFR > 60 (59 - ) Glucose 92 (65-110) mg/dL Calcium 8.7 (8.4-10.2) mg/dL Total Bilirubin 0.7 (0.2-1.3) mg/dL AST 39 (17-59) U/L ALT 31 (6-50) U/L Alkaline Phosphatase 74 (38-126) U/L Troponin I < 0.012 < 0.012 (0.000-0.034) ng/mL Total Protein 7.0 (6.3-8.2) g/dL Albumin 4.3 (3.5-5.1) g/dL Lipase 180 (23-300) U/L Discharge Plan Discharge Clinical Impression: Chest pain Qualifiers: Chest pain type: unspecified Qualified Code(s): R07.9 - Chest pain, unspecified Patient Disposition: Home Condition: Stable Instructions: Chest Pain (ED) Additional Instructions: Please follow up with your sonoscope operator and call his office today; you can always return if your pain returns or if you change your mind about staying in the hospital. Patient Language: Sammarinese Prescriptions: No Action metoprolol succinate [Toprol XL] 50 mg tablet extended release 24 hr 25 mg PO DAILY clopidogrel [Plavix] 75 mg tablet 75 mg PO DAILY nitroglycerin [Nitrostat] 0.4 mg tablet, sublingual 0.4 mg sublingual PRN PRN (Reason: Chest Pain) aspirin 81 mg Tablet 81 mg PO DAILY rosuvastatin [Crestor] 20 mg tablet 40 mg PO HS bupropion HCl 300 mg tablet extended release 24 hr 300 mg PO DAILY acetaminophen 500 mg Tablet 500 mg PO Q6H PRN (Reason: Pain) semaglutide 0.25 mg or 0.5 mg (2 mg/3 mL) Pen Injector 0.5 mg SUBCUT WEEKLY Rx Instructions: Pt takes on . pantoprazole 40 mg Tablet,Delayed Release (Dr/Ec) 40 mg PO Q12HR Qty: 60 0RF Follow-up/Referrals: Laverne Anderson [Other] Herb Worrell MD [Physician] - 2 Days
== END 2024-09-02 05:43 | disposition home or self-care (01) ==
PROVIDERS: Emergency Provider Emergency Medicine
DX: R07.9 Chest pain, unspecified (principal); I25.10 Atherosclerotic heart disease of native coronary artery without angina pectoris; I10 Essential (primary) hypertension; I48.0 Paroxysmal atrial fibrillation; G47.33 Obstructive sleep apnea (adult) (pediatric); H81.09 Meniere's disease, unspecified ear; Z85.828 Personal history of other malignant neoplasm of skin; Z95.5 Presence of coronary angioplasty implant and graft; I45.10 Unspecified right bundle-branch block; Z79.02 Long term (current) use of antithrombotics/antiplatelets; Z79.82 Long term (current) use of aspirin; Z79.85 Long-term (current) use of injectable non-insulin antidiabetic drugs; Z79.899 Other long term (current) drug therapy
CPT/HCPCS: 36415; 71045; 80053; 83690; 84484; 85025; 85610; 85730; 93005; 99284; A9270

== ENCOUNTER 2024-11-22 14:38 | Emergency (ER) | payer OTHER, SELFPAY ==
--- NOTE | ~2024-11-22 | XR_ITS ---
EXAMINATION: XR chest 2V DATE: 11/22/2024 15:53 INDICATION: Chest pain TECHNIQUE: PA and lateral views of the chest were obtained. COMPARISON: Chest radiograph dated 09/02/2024 FINDINGS: The lungs remain clear with no focal airspace opacities, pulmonary edema, pleural effusion or pneumot horax. The cardiomediastinal silhouette is normal. Visualized bones and soft tissues are unremarkable . IMPRESSION: 1. No acute cardiopulmonary disease. Reviewed, dictated and finalized at location A.
--- OUTSIDE RECORDS SUMMARY | 2024-11-22 14:40 | XMS_ITS | Encounter Summary ---
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
--- OUTSIDE RECORDS SUMMARY | 2024-11-22 14:40 | XMS_ITS | Clinical Summary ---
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 Place 1 tablet (0.4 mg total) under the tongue every 5 (five) minutes as needed for chest pain 25 tablet 2 5 06/10/19 27 Active omeprazole (PriLOSEC) 40 mg capsule Take 1 capsule (40 mg total) by mouth 2 (two) times a day 60 capsule 11 5 Active isosorbide mononitrate ER (IMDUR) 30 mg 24 hr tablet TAKE 1 TABLET BY MOUTH EVERY DAY 90 tablet 5 Active clopidogreL (PLAVIX) 75 mg tablet TAKE 1 TABLET BY MOUTH EVERY DAY 90 tablet 1 5 Active semaglutide (Wegovy) 0.25 mg/0.5 mL auto-injectorInd ications:BMI 35.0-35.9,adult, Morbid (severe) obesity due to excess calories (HCC) Inject 0.25 mg under the skin every 7 days 2 mL 5 Active busPIRone (BUSPAR) 5 mg tabletIndication s:Anxiety Take 1 tablet (5 mg total) by mouth 2 (two) times a day 180 tablet 1 5 Active semaglutide (WEGOVY) 0.25 mg/0.5 mL auto-injectorInd ications:Morbid (severe) obesity due to excess calories (HCC) Inject 0.5 mL (0.25 mg total) under the skin every 7 days 2 mL 4 11/01/19 25 Discontinu ed(Patient Reported) busPIRone (BUSPAR) 5 mg tabletIndication s:Anxiety TAKE 1 TABLET BY MOUTH TWICE A DAY 180 tablet 1 5 11/21/19 25 Discontinu ed(Reorder ) Active Problems Problem Noted Date Diagnosed Date [...] work up and 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 symptoms are cardiac [...] PT and is following with Ortho at [place] -was given a steroid injection by ortho [...] artery disease of n ative artery of agdaagux heart with stable angina pectoris 06/23/2022 Anxiety [...] Date Resolved Date BMI 36.0-36.9,adult 05/03/2023 09/27/19 Overview (08/07/2023): -increased to wegovy 0.5mg -he [...] Encounters Date Type Department Care Team Description 11/20/2024 7:30 AM CDT Telemedicine [facility] Department of Psychiatry [address] [facility], [facility] [address] [place] [address] Ana Rowley NP Attention and concentration deficit (Primary Dx); Illness anxiety disorder; Anxiety 10/31/2024 1:30 PM CDT Office Visit [facility] Cardiology [address] [place] [phone] Herb Worrell MD Coronary artery disease 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 (Primary Dx); Status post insertion of drug eluting coronary artery stent; Atrial fibrillation with RVR (HCC) 10/14/2024 Results Follow-Up [facility] Gastroenterology [address] [facility] [address] [place] [address] [place] [address] Nat Jaffe PA High resolution esophageal motility (manometry) and ambulatory pH impedance > 1 hr (24 hr) - 10/14/2024 Results Follow-Up [facility] Gastroenterology [address] [facility] [address] [place] [address] [place] [address] Nat Jaffe PA Ambulatory esophageal pH impedance function test > 1 hour (24 hr) - 10/08/2024 6:15 AM CDT - 10/08/2024 11:59 PM CDT Hospital Encounter [facility] GI Center [address] [place] [address] Dysphagia, unspecified type Discharge Disposition: Discharge to home or self care 10/07/2024 6:09 AM CDT - 10/07/2024 11:59 PM CDT Hospital Encounter [facility] GI Center [facility] [place] [address] Dysphagia, unspecified type Discharge Disposition: Discharge to home or self care 10/02/2024 Telephone [facility] Cardiology at [address] [place] [address] Irasema Shea NP 09/27/2024 Orders Only [facility] Gastroenterology [facility] [address]th [place] [address] [place] [phone] Aftab Blanco LPN Dysphagia, unspecified type (Primary Dx) 09/25/2024 Documentation [facility] Department of Psychiatry [address] [facility] [place] [address] Ana Rowley NP No show letter sent 09/24/2024 09/23/2024 2:20 PM CDT Office Visit [facility] Gastroenterology [address] [facility] Medical Office Building [address] [place] [phone] Kat Gustafson PA Epigastric pain; Morbid (severe) obesity due to excess calories (HCC) 09/04/2024 1:30 PM CDT Office Visit [facility] Cardiology [address] [facility] [address] [phone] Irasema Shea NP Chest pain, unspecified type (Primary Dx); Coronary artery disease 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 Gender Identity Not on file Sexual Orientation Not on file Obstetrics History Last Filed Vital Signs Vital Sign Reading Time Taken Comments Blood Pressure 102/74 10/31/2024 1:13 PM CDT Pulse 71 10/31/2024 1:13 PM CDT Temperature 36.4 C (97.5 F) 09/23/2024 2:25 PM CDT Respiratory Rate 16 10/31/2024 1:13 PM CDT Oxygen Saturation 98% 10/31/2024 1:13 PM CDT Inhaled Oxygen Concentration - - Weight 113.9 kg (251 lb) 10/31/2024 1:13 PM CDT Height 175.3 cm (5' 9) 10/31/2024 1:13 PM CDT Body Mass Index 37.07 10/31/2024 1:13 PM CDT Plan of Treatment Scheduled Procedures Name Priority [...] Depression Screening 11/11/2022 11/11/2021 Influenza Vaccine (#1) 2024 03/25/2022, 2016 Prostate Cancer Screening-PSA 05/24/2026 05/24/2024, [...] as needed Medical Devices Implanted Type Area [employer] Dean Device Identifier Shelf Expiration Date Model / Serial / Lot Cardiac Stent Implanted:03/07 (Quantity not on file) N/A: Heart [employer] Description:[place]-coronary Procedures Procedure Name Priority Date/Time Associated Diagnosis Comments AMBULATORY ESOPHAGEAL PH IMPEDANCE FUNCTION TEST > 1 HOUR (24 HR) Routine 10/14/2024 6:59 AM CDT Dysphagia, unspecified type HIGH RESOLUTION ESOPHAGEAL MOTILITY (MANOMETRY) AND AMBULATORY PH IMPEDANCE > 1HOUR (24 HR) Routine 10/14/2024 6:58 AM CDT Dysphagia, unspecified type POCT LIPID PANEL Routine 09/04/2024 2:46 PM CDT Mixed hyperlipidemia PSA SCREEN Routine 05/24/2024 3:29 PM MARKETING DATABASE COORDINATOR Difficulty in voiding COLONOSCOPY 03/20/2024 2:33 PM MARKETING DATABASE COORDINATOR from Last 3 Months or Most Recently Relevant to Health Maintenance Results * Ambulatory esophageal pH impedance function test > 1 hour (24 hr) - (10/14/2024 6:59 AM CDT) Anatomical Region Laterality Modality Other us Kat GOMEZ GI [facility] PROCEDURE ORDE RABLES Final Result * High resolution esophageal motility (manometry) and ambulatory pH impedance > 1 hr (24 hr) - (10/14/2024 6:58 AM CDT) Anatomical Region Laterality Modality Other us Kat GOMEZ GI LAB PROCEDURE ORDE RABLES Final Result * (ABNORMAL) POCT lipid panel (09/04/2024 2:46 PM CDT) Cholesterol, POC 110 <200 MG/DL HDL, POC 28(A) >=40 mg/dL Triglycerides, POC 220(A) <=149 mg/dL LDL Cholesterol POC 38 <=129 mg/dL Chol/HDL Ratio, POC 3.9 NONE Non-HDL Cholesterol, POC 82 NONE mg/dL Cholesterol Total, POC 110 30 - 199 mg/dL Capillary blood 09/04/2024 2 :46 PM CDT us Irasema Shea NP POINT OF CARE TEST ORD ERABLES Final Result * PSA screen (05/24/2024 3:29 PM MARKETING DATABASE COORDINATOR) PSA-Total 0.71 <=3.90 ng/mL Comment: Interpretive Data [...] last revised 21. Blood 05/24/2024 3:29 PM MARKETING DATABASE COORDINATOR 05/24/2024 4:02 PM MARKETING DATABASE COORDINATOR us Lisa Allen NP LAB BLOOD ORDERABLES Amna winter Result [facility] [place] [address] * Colonoscopy (03/20/2024 2:33 PM MARKETING DATABASE COORDINATOR) Anatomical Region Laterality Modality Other Narrative Procedure Note Ramon Ding MD - 03/20/2024 2:33 PM CST [facility] Patient Name: Rafi Yepez Procedure Date: 03/20/2024 2:33 PM Date of : 1970 Admit Type: Outpatient Age: 53 Gender: Male Attending MD: Ramon Ding M.D. Room: [facility] ENDOSCOPY ROOM 4 Note Status: Finalized [...] one hemostatic clip was successfully placed. 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 Therewas no bleeding during, or at the [...] Most Recently Relevant to Health Maintenance Insurance [facility] Advance Directives For more information, please contact: [phone] * Full Code (Latest Code Status on File) Date Activated Date Inactivated Comments 03/20/2024 1:49 PM 03/20/2024 7:38 PM Care Teams Lubrication Technician Relationship Specialty Start Date End Date Opal Anderson MD PCP - General Internal Medicine 11/11/21
--- OUTSIDE RECORDS SUMMARY | 2024-11-22 14:40 | XMS_ITS | Encounter Summary ---
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
--- OUTSIDE RECORDS SUMMARY | 2024-11-22 14:40 | XMS_ITS | Encounter Summary ---
Author Organization [facility] Address [address] [place] [address] Phone Care Team Providers Care Volcanology Teacher Name Role Phone Opal Anderson MD Primary Care Provider Encounter Details Date Type Department Care Team (Late st Contact Info) Description 10/14/2024 Results Follow-Up [facility] Gastroenterology [address] [facility] 12th [place] [address] [place] [address] Nat Jaffe PA [address] [place] [address] Ambulatory esophageal pH impedance function test > 1 hour (24 hr) - Social History Tobacco Use Types Packs/Day Years [...] on file 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
--- OUTSIDE RECORDS SUMMARY | 2024-11-22 14:40 | XMS_ITS | Encounter Summary ---
Author Organization [facility] Address [address] [place] [address] Phone Care Team Providers Care Human Resource Professional Name Role Phone Opal Anderson MD Primary Care Provider Encounter Details Date Type Department Care Team (Late st Contact Info) Description 10/14/2024 Results Follow-Up [facility] Gastroenterology [address] 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
[2024-11-22 14:50] VITALS: PULSE 70
[2024-11-22 14:51] VITALS: BP 119/73; PULSE 79; RESP 16; TEMP 36.7; O2SAT 98
--- NOTE | 2024-11-22 15:01 | ECG_ITS ---
Test Date: 2024-11-22 14:47:34 Measurements Intervals [place] Rate: 73 P: 52 AL: 155 QRS: -12 QRSD: 105 T: 40 QT: 408 QTc: 450 Interpretive Statements SINUS RHYTHM INCOMPLETE RIGHT BUNDLE BRANCH BLOCK BORDERLINE ECG Compared to ECG 09/02/2024 04:21:09 No significant changes Electronically Signed On 11-22-2024 16:15:56 CDT by Carlton Clement D.O.
[2024-11-22] MEDS: ASPIRIN 81 MG CHEWABLE TABLET 324 MG PO (15:11)
--- NOTE | 2024-11-22 15:17 | ED.GENADULT ---
HPI - General Adult General Chief complaint: Chest Pain <Ezio Edwards MD - Last Filed: 11/22/24 17:50> Stated complaint: chest pain <Ezio Edwards MD - Last Filed: 11/22/24 17:50> Time Seen by Provider: 11/22/24 14:51 <Ezio Edwards MD - Last Filed: 11/22/24 17:50> History of Present Illness HPI narrative: Patient is a 54-year-old male with history of HI who presents ER with chest discomfort and exertional headache. Reports he is out shopping today was starting to get some throbbing discomfort neck and head as well as lightheadedness. He did feel warm and flushed. He was driving thought he might pass out. Over last couple days he has been having intermittent right-sided chest discomfort going down his right arm. For this he typically takes nitro. He had a little bit of the same discomfort today but is not as strong as he typically required nitroglycerin for. Denies diaphoresis or nausea. No known sick contacts. No sinus congestion or sore throat or productive cough. <Ezio Edwards MD - Last Filed: 11/22/24 17:50> Related Data Home medications: Home Medications ?Medication ?Instructions ?Recorded ?Confirmed ?Last Taken ?Type aspirin 81 mg tablet 81 mg PO DAILY 05/18/21 10/21/23 10/20/23 History clopidogrel 75 mg tablet (Plavix) 75 mg PO DAILY 05/18/21 10/21/23 07/15/23 08:00 History metoprolol succinate 50 mg 25 mg PO DAILY 05/18/21 10/21/23 07/15/23 08:00 History tablet,extended release 24 hr (Toprol XL) nitroglycerin 0.4 mg sublingual 0.4 mg sublingual PRN PRN Chest 05/18/21 10/21/23 06/19/22 16:00 History tablet (Nitrostat) Pain rosuvastatin 20 mg tablet (Crestor) 40 mg PO HS 05/18/21 10/21/23 07/14/23 20:00 History bupropion HCl 300 mg 24 hr tablet, 300 mg PO DAILY 06/19/22 10/21/23 07/14/23 22:00 History extended release acetaminophen 500 mg tablet 500 mg PO Q6H PRN Pain 07/15/23 10/21/23 Unknown History semaglutide 0.25 mg or 0.5 mg (2 0.5 mg subcut WEEKLY 07/15/23 10/21/23 07/13/23 08:00 History mg/3 mL) subcutaneous pen injector <Ezio Edwards MD - Last Filed: 11/22/24 17:50> Allergies/adverse reactions: Allergies Allergy/AdvReac Type Severity Reaction Status Date / Time No Known Allergies Allergy Verified 09/02/24 01:14 <Ezio Edwards MD - Last Filed: 11/22/24 17:50> Review of Systems Review of Systems: All systems reviewed & are unremarkable except as noted in HPI and below <Ezio Edwards MD - Last Filed: 11/22/24 17:50> Constitutional: Constitutional: Reports no additional constitutional complaints <Ezio Edwards MD - Last Filed: 11/22/24 17:50> ENT: Reports system reviewed and no additional complaints, except as documented <Ezio Edwards MD - Last Filed: 11/22/24 17:50> Cardiovascular: Cardiovascular: Reports no additional cardiovascular complaints <Ezoi Edwards MD - Last Filed: 11/22/24 17:50> Respiratory: Respiratory: Reports no additional respiratory complaints <Ezio Edwards MD - Last Filed: 11/22/24 17:50> Musculoskeletal: Musculoskeletal: Reports no additional musculoskeletal complaints <Ezio Edwards MD - Last Filed: 11/22/24 17:50> [facility] Past Medical History Medical History: Medical History Chest pain Coronary artery disease Hypertension Meniere disease Obstructive sleep apnea Paroxysmal atrial fibrillation Skin cancer <Ezio Edwards MD - Last Filed: 11/22/24 17:50> Surgical History Surgical History: Surgical History History of coronary artery stent placement (02/2021) <Ezio Edwards MD - Last Filed: 11/22/24 17:50> Family History Family History: Family History Father Diabetes mellitus Heart disease FH: CABG (coronary artery bypass surgery) Kidney calculi Sibling Diabetes mellitus Kidney calculi Mother COPD (chronic obstructive pulmonary disease) <Ezio Edwards MD - Last Filed: 11/22/24 17:50> Social History Social History: Social History Social History: Surrogate medical decision maker: Deedee Yepez, spouse. Code status: Full code. Smoking status: Never smoker Alcohol intake: never Substance use: never Substance use type: does not use Do You Feel Safe in your Home?: Yes Lack of Transportation: No Lack of Food: Never True Current Housing: I Have Housing Concerned About Future Housing: No Difficulty Paying Gas/Electric Bills: No Difficulty Paying for Meds: No Currently Unemployed: No Education: Bachelor's Degree Difficulty w/ Childcare or Family Care: No Additional living arrangements comments: Lives in [place] with spouse. Originally from [place]. Additional occupation/education comments: Works at the [employer]. Spiritual care concerns: No <Ezio Edwards MD - Last Filed: 11/22/24 17:50> Exam Narrative: GENERAL: Well-appearing, well-nourished, and in no acute distress. HEAD: Normocephalic, atraumatic. ENT: Mucous membranes moist. CHEST: Clear to auscultation. No respiratory distress. HEART: Regular rate and rhythm. Normal peripheral pulses. ABDOMEN: Soft, nontender, nondistended. EXTREMITIES: Normal range of motion. No edema. SKIN: Warm, dry, no rash. NEURO: Alert and oriented x3. PSYCH: Normal mood and affect. <Ezio Edwards MD - Last Filed: 11/22/24 17:50> Course Course Emergency Course: Patient resting comfortably. Informed of results. Will perform a 2nd troponin and determine disposition at that time. STACI to Dr. Balbuena. <Ezio Edwards MD - Last Filed: 11/22/24 17:50> Patient resting comfortably. Informed of results. Will perform a 2nd troponin and determine disposition at that time. STACI to Dr. Balbuena. Patient's 2nd troponin is negative, unremarkable workup here with normal vital signs. Patient is safe and stable for discharge home with regular outpatient follow-up. <Storm Balbuena MD - Last Filed: 11/23/24 06:40> Vital Signs Vital signs: Vital Signs Pulse Rate 70 11/22/24 14:50 Temperature 36.7 C 11/22/24 14:51 Pulse Rate 77 11/22/24 19:24 Respiratory Rate 18 11/22/24 19:24 Blood Pressure 107/77 11/22/24 19:24 Pulse Oximetry 99 11/22/24 19:24 Oxygen Delivery Room Air 11/22/24 15:55 <Ezio Edwards MD - Last Filed: 11/22/24 17:50> Vital Signs Pulse Rate 70 11/22/24 14:50 Temperature 36.7 C 11/22/24 14:51 Pulse Rate 77 11/22/24 19:24 Respiratory Rate 18 11/22/24 19:24 Blood Pressure 107/77 11/22/24 19:24 Pulse Oximetry 99 11/22/24 19:24 Oxygen Delivery Room Air 11/22/24 15:55 <Storm Balbuena MD - Last Filed: 11/23/24 06:40> Medical Decision Making Vital Signs Vital Signs: Vital Signs Pulse Rate 70 11/22/24 14:50 Temperature 36.7 C 11/22/24 14:51 Pulse Rate 77 11/22/24 19:24 Respiratory Rate 18 11/22/24 19:24 Blood Pressure 107/77 11/22/24 19:24 Pulse Oximetry 99 11/22/24 19:24 Oxygen Delivery Room Air 11/22/24 15:55 <Ezio Edwards MD - Last Filed: 11/22/24 17:50> Vital Signs Pulse Rate 70 11/22/24 14:50 Temperature 36.7 C 11/22/24 14:51 Pulse Rate 77 11/22/24 19:24 Respiratory Rate 18 11/22/24 19:24 Blood Pressure 107/77 11/22/24 19:24 Pulse Oximetry 99 11/22/24 19:24 Oxygen Delivery Room Air 11/22/24 15:55 <Storm Balbuena MD - Last Filed: 11/23/24 06:40> Lab Data Result diagrams: 11/22/24 15:19 11/22/24 15:19 <Ezio Edwards MD - Last Filed: 11/22/24 17:50> Labs: Lab Results 11/22/24 11/22/24 11/22/24 Range/Units 15:19 15:26 17:51 WBC 4.9 (4.5-10.0) K/mm3 RBC 5.23 (4.6-6.20) M/mm3 Hgb 14.6 (14.0-18.0) g/dL Hct 44.9 (42.0-52.0) % MCV 85.9 (80-100) fl MCH 27.9 (26-34) pg MCHC 32.5 (32-36) g/dl RDW 11.8 (11.5-14.5) % Plt Count 156 (150-375) k/mm3 MPV 10.2 (7.4-10.4) fl Immature Gran % (Auto) 0.2 (0-0.5) % Neut % (Auto) 60.1 (45.5-73.1) % Lymph % (Auto) 22.0 (18.3-44.2) % [place] % (Auto) 13.6 H (2.6-8.5) % Eos % (Auto) 3.5 (0-4.4) % Baso % (Auto) 0.6 (0.2-1.2) % Lymph # (Auto) 1.08 (0.9-3.2) K/mm3 [place] # (Auto) 0.7 H (0.1-0.6) K/mm3 Eos # (Auto) 0.2 (0-0.3) K/mm3 Baso # (Auto) 0.0 (0.0-0.1) K/mm3 Abs Immat Gran (auto) 0.01 (0.00-0.031) K/mm3 Absolute Neuts (auto) 3.0 (1.3-6.7) K/mm3 Absolute Nucleated RBC 0.000 (0.0-0.012) K/mm3 Nucleated RBC % 0.0 (0.0-0.2) % PT 13.5 (11.1-14.7) Seconds INR 1.0 APTT 24.8 (22.3-36.8) Seconds Sodium 139 (137-145) mmol/L Potassium 4.4 (3.4-5.0) mmol/L Chloride 105 (98-107) mmol/L Carbon Dioxide 26 (22-30) mmol/L Anion Gap 8 (4-12) mmol/L BUN 22 H (9-20) mg/dL Creatinine 1.24 (0.7-1.3) mg/dL Estim Creat Clear Calc 75 ml/min Estimated GFR > 60 (59 - ) Glucose 96 (65-110) mg/dL Calcium 8.9 (8.4-10.2) mg/dL Total Bilirubin 0.4 (0.2-1.3) mg/dL AST 32 (17-59) U/L ALT 29 (6-50) U/L Alkaline Phosphatase 71 (38-126) U/L Troponin I < 0.012 < 0.012 (0.000-0.034) ng/mL NT-Pro-B Natriuret Pep 30 (19.9-100) pg/mL Total Protein 6.4 (6.3-8.2) g/dL Albumin 3.9 (3.5-5.1) g/dL Influenza A (RT-PCR) Negative (Negative) Influenza B (RT-PCR) Negative (Negative) RSV (RT-PCR) Negative (Negative) SARS-CoV-2 RNA (RT-PCR) Negative (Negative) <Ezio Edwards MD - Last Filed: 11/22/24 17:50> Lab Results 11/22/24 11/22/24 11/22/24 Range/Units 15:19 15:26 17:51 WBC 4.9 (4.5-10.0) K/mm3 RBC 5.23 (4.6-6.20) M/mm3 Hgb 14.6 (14.0-18.0) g/dL Hct 44.9 (42.0-52.0) % MCV 85.9 (80-100) fl MCH 27.9 (26-34) pg MCHC 32.5 (32-36) g/dl RDW 11.8 (11.5-14.5) % Plt Count 156 (150-375) k/mm3 MPV 10.2 (7.4-10.4) fl Immature Gran % (Auto) 0.2 (0-0.5) % Neut % (Auto) 60.1 (45.5-73.1) % Lymph % (Auto) 22.0 (18.3-44.2) % [place] % (Auto) 13.6 H (2.6-8.5) % Eos % (Auto) 3.5 (0-4.4) % Baso % (Auto) 0.6 (0.2-1.2) % Lymph # (Auto) 1.08 (0.9-3.2) K/mm3 [place] # (Auto) 0.7 H (0.1-0.6) K/mm3 Eos # (Auto) 0.2 (0-0.3) K/mm3 Baso # (Auto) 0.0 (0.0-0.1) K/mm3 Abs Immat Gran (auto) 0.01 (0.00-0.031) K/mm3 Absolute Neuts (auto) 3.0 (1.3-6.7) K/mm3 Absolute Nucleated RBC 0.000 (0.0-0.012) K/mm3 Nucleated RBC % 0.0 (0.0-0.2) % PT 13.5 (11.1-14.7) Seconds INR 1.0 APTT 24.8 (22.3-36.8) Seconds Sodium 139 (137-145) mmol/L Potassium 4.4 (3.4-5.0) mmol/L Chloride 105 (98-107) mmol/L Carbon Dioxide 26 (22-30) mmol/L Anion Gap 8 (4-12) mmol/L BUN 22 H (9-20) mg/dL Creatinine 1.24 (0.7-1.3) mg/dL Estim Creat Clear Calc 75 ml/min Estimated GFR > 60 (59 - ) Glucose 96 (65-110) mg/dL Calcium 8.9 (8.4-10.2) mg/dL Total Bilirubin 0.4 (0.2-1.3) mg/dL AST 32 (17-59) U/L ALT 29 (6-50) U/L Alkaline Phosphatase 71 (38-126) U/L Troponin I < 0.012 < 0.012 (0.000-0.034) ng/mL NT-Pro-B Natriuret Pep 30 (19.9-100) pg/mL Total Protein 6.4 (6.3-8.2) g/dL Albumin 3.9 (3.5-5.1) g/dL Influenza A (RT-PCR) Negative (Negative) Influenza B (RT-PCR) Negative (Negative) RSV (RT-PCR) Negative (Negative) SARS-CoV-2 RNA (RT-PCR) Negative (Negative) <Storm Balbuena MD - Last Filed: 11/23/24 06:40> Imaging Data Radiologist's impression: ITS Impressions Chest X-Ray 11/22/24 16:15 IMPRESSION: 1. No acute cardiopulmonary disease. <Ezio Edwards MD - Last Filed: 11/22/24 17:50> ECG Data EKG #1: ECG completion date: 11/22/24 <Ezio Edwards MD - Last Filed: 11/22/24 17:50> ECG completion time: 14:47 <Ezio Edwards MD - Last Filed: 11/22/24 17:50> EKG Interpretation: normal rate (73), sinus rhythm, no ectopy, no ST changes, normal QRS and normal QT <Ezio Edwards MD - Last Filed: 11/22/24 17:50> Discharge Plan Discharge Clinical Impression: Chest pain Qualifiers: Chest pain type: unspecified Qualified Code(s): R07.9 - Chest pain, unspecified <Ezio Edwards MD - Last Filed: 11/22/24 17:50> Patient Disposition: Home <Ezio Edwards MD - Last Filed: 11/22/24 17:50> Condition: Stable <Ezio Edwards MD - Last Filed: 11/22/24 17:50> Instructions: Antibiotic Form, Chest Pain (ED) <Ezio Edwards MD - Last Filed: 11/22/24 17:50> Additional Instructions: Follow-up with your regular primary care provider and hot head machine operator on outpatient basis. Your laboratory studies and cardiac enzymes here are negative serially with no acute concerning findings on your EKG. Return with any persistent or worsening symptoms, follow-up outpatient. <Ezio Edwards MD - Last Filed: 11/22/24 17:50> Patient Language: French <Ezio Edwards MD - Last Filed: 11/22/24 17:50> Prescriptions: No Action metoprolol succinate [Toprol XL] 50 mg tablet extended release 24 hr 25 mg PO DAILY clopidogrel [Plavix] 75 mg tablet 75 mg PO DAILY nitroglycerin [Nitrostat] 0.4 mg tablet, sublingual 0.4 mg sublingual PRN PRN (Reason: Chest Pain) aspirin 81 mg Tablet 81 mg PO DAILY rosuvastatin [Crestor] 20 mg tablet 40 mg PO HS bupropion HCl 300 mg tablet extended release 24 hr 300 mg PO DAILY acetaminophen 500 mg Tablet 500 mg PO Q6H PRN (Reason: Pain) semaglutide 0.25 mg or 0.5 mg (2 mg/3 mL) Pen Injector 0.5 mg SUBCUT WEEKLY Rx Instructions: Pt takes on . pantoprazole 40 mg Tablet,Delayed Release (Dr/Ec) 40 mg PO Q12HR Qty: 60 0RF <Ezio Edwards MD - Last Filed: 11/22/24 17:50> Follow-up/Referrals: PHYSICIAN NOT ON STAFF,NONSTAFF [Primary Care Provider] - <Ezio Edwards MD - Last Filed: 11/22/24 17:50> Time of Disposition: 19:14 <Ezio Edwards MD - Last Filed: 11/22/24 17:50> 19:14 <Storm Balbuena MD - Last Filed: 11/23/24 06:40> Quality HEART score for chest pain patients History: slightly suspicious <Ezio Edwards MD - Last Filed: 11/22/24 17:50> ECG: normal <Ezio Edwards MD - Last Filed: 11/22/24 17:50> Age: > 45 and < 65 years <Ezio Edwards MD - Last Filed: 11/22/24 17:50> Risk factors: > or = to 3 risk factors of atherosclerotic disease <Ezio Edwards MD - Last Filed: 11/22/24 17:50> Troponin: < or = to 1x normal limit <Ezio Edwards MD - Last Filed: 11/22/24 17:50> Heart score: 3 <Ezio Edwards MD - Last Filed: 11/22/24 17:50> 3 <Storm Balbuena MD - Last Filed: 11/23/24 06:40>
[2024-11-22 15:29] LABS: Hematocrit 44.9 % (42.0-52.0); Hemoglobin 14.6 g/dL (14.0-18.0); Immature Granulocyte Percent A 0.2 % (0-0.5); Lymphocytes Absolute Auto 1.08 K/mm3 (0.9-3.2); Mean Corpuscular HGB Conc 32.5 g/dl (32-36); Mean Corpuscular Hemoglobin 27.9 pg (26-34); Mean Corpuscular Volume 85.9 fl (80-100); Nucleated Red Blood Cells Absolute Auto 0.000 K/mm3 (0.0-0.012); Nucleated Red Blood Cells Perc 0.0 % (0.0-0.2); Platelet Count Result 156 k/mm3 (150-375); Red Blood Count 5.23 M/mm3 (4.6-6.20); White Blood Count 4.9 K/mm3 (4.5-10.0)
[2024-11-22 15:39] LABS: Alanine Aminotransferase 29 U/L (6-50); Albumin Level 3.9 g/dL (3.5-5.1); Alkaline Phosphatase 71 U/L (38-126); Anion Gap 8 mmol/L (4-12); Aspartate Amino Transferase 32 U/L (17-59); Bilirubin,Total 0.4 mg/dL (0.2-1.3); Blood Urea Nitrogen 22 mg/dL (9-20); Calcium 8.9 mg/dL (8.4-10.2); Carbon Dioxide 26 mmol/L (22-30); Chloride 105 mmol/L (98-107); Estimated CRCL calculation 75 ml/min; Estimated Glomerular Filt Rate > 60; Glucose 96 mg/dL (65-110); Potassium 4.4 mmol/L (3.4-5.0); Sodium 139 mmol/L (137-145); Total Protein 6.4 g/dL (6.3-8.2)
[2024-11-22 15:50] LABS: NT Pro B Type Natriuretic Pept 30 pg/mL (19.9-100); Troponin I < 0.012 ng/mL (0.000-0.034)
[2024-11-22 15:55] VITALS: BP 112/74; PULSE 67; RESP 18; O2SAT 98
--- OUTSIDE RECORDS SUMMARY | 2024-11-22 15:58 | XMS_ITS | Encounter Summary ---
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
--- OUTSIDE RECORDS SUMMARY | 2024-11-22 15:58 | XMS_ITS | Clinical Summary ---
Author Organization [facility] [address] Address [address] [place] [address] Care Team Providers Care Volunteer Services Coordinator Name Role Phone Opal Anderson MD Primary Care Provider Allergies No known active allergies Medications ASPIRIN ORALIndications: prevention of thrombosis,Hx SC Take 81 mg by mouth nightly 1 [...] mg SL tabletIndication s:Coronary artery disease of [place] artery of [place] heart with stable angina pectoris Place 1 [...] work up and he tells me his light bulb tester does not think his symptoms are cardiac [...] PT and is following with Ortho at [place] -was given a steroid injection by ortho [...] artery disease of n ative artery of naknek heart with stable angina pectoris 06/23/2022 Anxiety [...] Team Description 11/20/2024 7:30 AM CDT Telemedicine [facility] Department of Psychiatry [address] [facility], [facility] [address] [place] [address] Ana Rowley NP Attention and concentration deficit (Primary Dx); Illness anxiety disorder; Anxiety 10/31/2024 1:30 PM CDT Office Visit [facility] Medical Group Cardiology [address] [place] [phone] Herb Worrell MD Coronary artery disease of naknek artery of nak[place] heart with stable angina pectoris (Primary Dx); Status post insertion of drug eluting coronary artery stent; Atrial fibrillation with RVR (HCC) 10/14/2024 Results Follow-Up [facility] Gastroenterology [address] [facility] 12th [place] [address] [place] [address] Nat Jaffe PA High resolution esophageal motility (manometry) and ambulatory pH impedance > 1 hr (24 hr) - 10/14/2024 Results Follow-Up [facility] Gastroenterology [address] [facility] 12th [place] [address] [place] [address] Nat Jaffe PA Ambulatory esophageal pH impedance function test > 1 hour (24 hr) - 10/08/2024 6:15 AM CDT - 10/08/2024 11:59 PM CDT Hospital Encounter [facility] [address] [place] [address] Dysphagia, unspecified type Discharge Disposition: Discharge to home or self care 10/07/2024 6:09 AM CDT - 10/07/2024 11:59 PM CDT Hospital Encounter [facility] [place] [address] Dysphagia, unspecified type Discharge Disposition: Discharge to home or self care 10/02/2024 Telephone [facility] Medical Group Cardiology at [address] [place] [address] Irasema Shea NP 09/27/2024 Orders Only [facility] Gastroenterology [facility] [facility] 12th [place] [address] [place] [phone] Aftab Blanco LPN Dysphagia, unspecified type (Primary Dx) 09/25/2024 Documentation [facility] Department of Psychiatry [address] [facility] [place] [address] Ana Rowley NP No show letter sent 09/24/2024 09/23/2024 2:20 PM CDT Office Visit [facility] Gastroenterology [address] [facility] Medical Office [address] [place] [phone] Kat Gustafson PA Epigastric pain; Morbid (severe) obesity due to excess calories (HCC) 09/04/2024 1:30 PM CDT Office Visit [facility] Medical Group Cardiology [address] [facility] [address] [phone] Irasema Shea NP Chest pain, unspecified type (Primary Dx); Coronary artery disease of naknek artery of [place]ak[place] heart with stable angina pectoris; Mixed hyperlipidemia [...] on file Legal 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 Blood 05/24/2024 3:29 PM [employer] SALESPERSON 05/24/2024 4:02 PM [employer] SALESPERSON us Lisa Allen NP LAB BLOOD ORDERABLES Amna winter Result [facility] Department [place] [address] * Colonoscopy (03/20/2024 2:33 PM [employer] SALESPERSON) Anatomical Region Laterality Modality Other Narrative Procedure Note Ramon Ding MD - 03/20/2024 2:33 PM [facility] Patient Name: Rafi Yepez Procedure Date: 03/20/2024 2:33 PM Date of : 1970 Admit Type: Outpatient Age: 53 Gender: Male Attending MD: Ramon Ding M.D. Room: [facility] 4 Note Status: Finalized [...] one hemostatic clip was successfully placed. 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 Therewas no bleeding during, or at the [...] Relevant to Health Maintenance Insurance [facility] Address: [facility] [id number] [place] [address] [facility] Advance Directives For more information, please contact: [phone] * Full Code (Latest Code Status on File) Date Activated Date Inactivated Comments 03/20/2024 1:49 PM 03/20/2024 7:38 PM Care Teams Volunteer Services Coordinator Relationship Specialty Start Date End Date Opal Anderson MD PCP - General Internal Medicine 11/11/21
--- OUTSIDE RECORDS SUMMARY | 2024-11-22 15:58 | XMS_ITS | Encounter Summary ---
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
--- OUTSIDE RECORDS SUMMARY | 2024-11-22 15:58 | XMS_ITS | Encounter Summary ---
Author Organization [facility] Address [address] [place] [address] Phone Care Team Providers Care Scrub Technician Name Role Phone Opal Anderson MD Primary Care Provider Encounter Details Date Type Department Care Team (Late st Contact Info) Description 10/14/2024 Results Follow-Up [facility] Gastroenterology [address] 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
--- OUTSIDE RECORDS SUMMARY | 2024-11-22 15:58 | XMS_ITS | Encounter Summary ---
Author Organization 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
[2024-11-22 16:06] LABS: Influenza A QL RT-PCR Negative (Negative); Influenza B QL RT-PCR Negative (Negative); RSV RNA, RT-PCR Negative (Negative); SARS-CoV-2 RNA PCR Negative (Negative)
[2024-11-22 16:19] LABS: INR 1.0; Partial Thromboplastin Time 24.8 Seconds (22.3-36.8); Prothrombin Time 13.5 Seconds (11.1-14.7)
[2024-11-22 18:17] LABS: Troponin I < 0.012 ng/mL (0.000-0.034)
[2024-11-22 19:13] VITALS: PULSE 59; RESP 18; O2SAT 98
[2024-11-22 19:24] VITALS: BP 107/77; PULSE 77; RESP 18; O2SAT 99
== END 2024-11-22 19:31 | disposition home or self-care (01) ==
PROVIDERS: Emergency Provider Emergency Medicine
DX: R07.89 Other chest pain (principal); I25.10 Atherosclerotic heart disease of native coronary artery without angina pectoris; I10 Essential (primary) hypertension; H81.09 Meniere's disease, unspecified ear; G47.33 Obstructive sleep apnea (adult) (pediatric); I48.0 Paroxysmal atrial fibrillation; Z20.822 Contact with and (suspected) exposure to COVID-19
CPT/HCPCS: 36415; 71046; 80053; 83880; 84484; 85025; 85610; 85730; 87637; 93005; 99284; A9270

== ENCOUNTER 2025-01-01 15:05 | Observation (INO) | payer OTHER, SELFPAY ==
[2025-01-01] VITALS (12 sets, daily range): BP systolic 104–121; BP diastolic 65–85; PULSE 64–102; RESP 15–21; TEMP 36.6–36.9; O2SAT 95–99; BMI 36.6
--- NOTE | ~2025-01-01 | XR_ITS ---
EXAMINATION: XR chest 1V portable COMPARISON: No comparisons available. HISTORY: CP FINDINGS: The lungs are clear, no effusion. No pneumothorax. Heart is normal size. Mediastinal and hilar contours are within normal limits. Bony thorax no acute abnormality. Miscellaneous: None Impression: No acute cardiopulmonary abnormality. Reviewed, dictated and finalized at location A. Impression: No acute cardiopulmonary abnormality.
--- NOTE | 2025-01-01 15:10 | ECG_ITS ---
Test Date: 2025-01-01 15:16:00 Measurements Intervals [place] Rate: 99 P: 26 [place]: 133 QRS: -34 QRSD: 107 T: 38 QT: 337 QTc: 434 Interpretive Statements SINUS RHYTHM MARKED LEFT AXIS DEVIATION [QRS AXIS < -30] LOW QRS VOLTAGE IN PRECORDIAL LEADS [QRS DEFLECTION < 1.0 mV IN CHEST LEADS] INCOMPLETE RIGHT BUNDLE BRANCH BLOCK [90+ ms QRS DURATION, TERMINAL R IN V1/V2, 40+ ms S IN I/aVL/V4/V5/V6] ABNORMAL ECG Compared to ECG 11/22/2024 14:47:34 Left-axis deviation now present Low QRS voltage now present Electronically Signed On 01-01-2025 16:52:31 CDT by Gagan Harley M.D.
[2025-01-01 15:40] LABS: Hematocrit 46.1 % (42.0-52.0); Hemoglobin 15.0 g/dL (14.0-18.0); Immature Granulocyte Percent A 0.2 % (0-0.5); Lymphocytes Absolute Auto 0.81 K/mm3 (0.9-3.2); Mean Corpuscular HGB Conc 32.5 g/dl (32-36); Mean Corpuscular Hemoglobin 28.0 pg (26-34); Mean Corpuscular Volume 86.2 fl (80-100); Nucleated Red Blood Cells Absolute Auto 0.000 K/mm3 (0.0-0.012); Nucleated Red Blood Cells Perc 0.0 % (0.0-0.2); Platelet Count Result 155 k/mm3 (150-375); Red Blood Count 5.35 M/mm3 (4.6-6.20); White Blood Count 6.6 K/mm3 (4.5-10.0)
--- NOTE | 2025-01-01 15:46 | ED.CHESTPAIN ---
HPI - Chest Pain General Chief Complaint: Chest Pain Stated Complaint: CP/SOB Time Seen by Provider: 01/01/25 15:46 Source: patient and EMS Mode of arrival: EMS Limitations: no limitations History of Present Illness HPI narrative: 54 years old white male came to the ED by ambulance complaining of not feeling good, intermittent chest pain, headache, dry mouth, dizziness, clammy skin been outdoors for 4 hours probably warm. He denies any fever, chills, shortness of breath. Patient received aspirin prior to arrival, history of hypertension hyperlipidemia coronary stent. Patient does not smoke or drink or use drugs Related Data Home Medications ?Medication ?Instructions ?Recorded ?Confirmed ?Last Taken ?Type aspirin 81 mg tablet 81 mg PO DAILY 05/18/21 10/21/23 10/20/23 History clopidogrel 75 mg tablet (Plavix) 75 mg PO DAILY 05/18/21 10/21/23 07/15/23 08:00 History metoprolol succinate 50 mg 25 mg PO DAILY 05/18/21 10/21/23 07/15/23 08:00 History tablet,extended release 24 hr (Toprol XL) nitroglycerin 0.4 mg sublingual 0.4 mg sublingual PRN PRN Chest 05/18/21 10/21/23 06/19/22 16:00 History tablet (Nitrostat) Pain rosuvastatin 20 mg tablet (Crestor) 40 mg PO HS 05/18/21 10/21/23 07/14/23 20:00 History bupropion HCl 300 mg 24 hr tablet, 300 mg PO DAILY 06/19/22 10/21/23 07/14/23 22:00 History extended release acetaminophen 500 mg tablet 500 mg PO Q6H PRN Pain 07/15/23 10/21/23 Unknown History semaglutide 0.25 mg or 0.5 mg (2 0.5 mg subcut WEEKLY 07/15/23 10/21/23 07/13/23 08:00 History mg/3 mL) subcutaneous pen injector Allergies Allergy/AdvReac Type Severity Reaction Status Date / Time No Known Allergies Allergy Verified 09/02/24 01:14 Review of Systems Review of Systems: All systems reviewed & are unremarkable except as noted in HPI and below PMFSH Past Medical History Medical History Meniere disease Skin cancer Hypertension Obstructive sleep apnea Coronary artery disease Paroxysmal atrial fibrillation Chest pain Surgical History Surgical History History of coronary artery stent placement (02/2021) Family History Family History Father Diabetes mellitus Heart disease FH: CABG (coronary artery bypass surgery) Kidney calculi Sibling Diabetes mellitus Kidney calculi Mother COPD (chronic obstructive pulmonary disease) Social History Social History Social History: Surrogate medical decision maker: Deedee Yepez, spouse. Code status: Full code. Smoking status: Never smoker Alcohol intake: never Substance use: never Substance use type: does not use Do You Feel Safe in your Home?: Yes Lack of Transportation: No Lack of Food: Never True Current Housing: I Have Housing Concerned About Future Housing: No Difficulty Paying Gas/Electric Bills: No Difficulty Paying for Meds: No Currently Unemployed: No Education: Bachelor's Degree Difficulty w/ Childcare or Family Care: No Additional living arrangements comments: Lives in [place] with spouse. Originally from [place]. Additional occupation/education comments: Works at the [email or web address]. Spiritual care concerns: No Exam Narrative: General appearance: Well-developed, well-nourished, anxious Skin: Normal color Head: Normocephalic, nontraumatic Eyes: Clear conjunctiva ENT: Oropharynx normal, ears normal, nose normal Neck: Supple, nontender Chest and respiratory: Airway patent, no respiratory distress, no accessory muscle use Heart: Regular rate/rhythm Abdomen: Soft, nontender, no organomegaly, quiet bowel sounds Vascular: Normal peripheral pulses, normal capillary refill. 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 TRANSMISSION ENGINEER is normal as tested, no gross motor deficit Course Vital Signs Vital signs: Vital Signs Temperature 36.7 C 01/01/25 15:11 Pulse Rate 101 H 01/01/25 15:11 Respiratory Rate 16 01/01/25 15:11 Blood Pressure 119/83 01/01/25 15:11 Pulse Oximetry 96 01/01/25 15:11 Oxygen Delivery Autopap 01/01/25 15:11 Temperature 36.7 C 01/01/25 15:11 Pulse Rate 101 H 01/01/25 15:11 Respiratory Rate 16 01/01/25 15:11 Blood Pressure 119/83 01/01/25 15:11 Pulse Oximetry 96 01/01/25 15:11 Oxygen Delivery Autopap 01/01/25 15:11 MDM - Chest Pain MDM Narrative Medical decision making narrative: Patient came with intermittent chest pain and other nonspecific symptoms Vital signs are stable Physical examination showing anxious patient Differential diagnosis anxiety like symptoms, coronary artery disease, electrolyte imbalance, dehydration, he did exertion Blood workup today includes CBC, CMP, troponin, BMP, CPK showed no acute abnormality EKG showed normal sinus rhythm no acute abnormality Chest x-ray showed no acute abnormality Cardiac score is 5 Admit to hospitalist observation for chest pain Differential Diagnosis Differential diagnosis: Likely chest pain Medical Records Data Attestation: I reviewed the patient's medical records. Lab Data Attestation: I reviewed the patient's lab results. 01/01/25 15:32 01/01/25 15:32 Labs: Lab Results 01/01/25 Range/Units 15:32 WBC 6.6 (4.5-10.0) K/mm3 RBC 5.35 (4.6-6.20) M/mm3 Hgb 15.0 (14.0-18.0) g/dL Hct 46.1 (42.0-52.0) % MCV 86.2 (80-100) fl MCH 28.0 (26-34) pg MCHC 32.5 (32-36) g/dl RDW 11.9 (11.5-14.5) % Plt Count 155 (150-375) k/mm3 MPV 10.2 (7.4-10.4) fl Immature Gran % (Auto) 0.2 (0-0.5) % Neut % (Auto) 77.0 H (45.5-73.1) % Lymph % (Auto) 12.3 L (18.3-44.2) % [place] % (Auto) 9.1 H (2.6-8.5) % Eos % (Auto) 1.1 (0-4.4) % Baso % (Auto) 0.3 (0.2-1.2) % Lymph # (Auto) 0.81 L (0.9-3.2) K/mm3 [place] # (Auto) 0.6 (0.1-0.6) K/mm3 Eos # (Auto) 0.1 (0-0.3) K/mm3 Baso # (Auto) 0.0 (0.0-0.1) K/mm3 Abs Immat Gran (auto) 0.01 (0.00-0.031) K/mm3 Absolute Neuts (auto) 5.1 (1.3-6.7) K/mm3 Absolute Nucleated RBC 0.000 (0.0-0.012) K/mm3 Nucleated RBC % 0.0 (0.0-0.2) % PT Pending INR Pending APTT Pending Sodium 138 (137-145) mmol/L Potassium 4.0 (3.4-5.0) mmol/L Chloride 107 (98-107) mmol/L Carbon Dioxide 25 (22-30) mmol/L Anion Gap 6 (4-12) mmol/L BUN 23 H (9-20) mg/dL Creatinine 1.09 (0.7-1.3) mg/dL Estim Creat Clear Calc 76 ml/min Estimated GFR > 60 (59 - ) Glucose 99 (65-110) mg/dL Calcium 8.7 (8.4-10.2) mg/dL Total Bilirubin 0.7 (0.2-1.3) mg/dL AST 29 (17-59) U/L ALT 30 (6-50) U/L Alkaline Phosphatase 79 (38-126) U/L Troponin I Pending Total Protein 6.7 (6.3-8.2) g/dL Albumin 4.1 (3.5-5.1) g/dL Lipase 120 (23-300) U/L ECG Data EKG #1: Attestation: I personally reviewed and interpreted this ECG as follows: ECG completion date: 01/01/25 Interpretation: Normal sinus rhythm 99 beats per minute, left axis deviation, compared to EKG on November 22, 2024 likes axis deviation now present. Critical Care Time Critical Care Time Critical Care Time: No Discharge Plan Discharge Clinical Impression: Anxiety Chest pain Qualifiers: Chest pain type: unspecified Qualified Code(s): R07.9 - Chest pain, unspecified Patient Disposition: Still a Patient Condition: Stable Additional Instructions: Admit to hospitalist Patient Language: Swazi Prescriptions: No Action metoprolol succinate [Toprol XL] 50 mg tablet extended release 24 hr 25 mg PO DAILY clopidogrel [Plavix] 75 mg tablet 75 mg PO DAILY nitroglycerin [Nitrostat] 0.4 mg tablet, sublingual 0.4 mg sublingual PRN PRN (Reason: Chest Pain) aspirin 81 mg Tablet 81 mg PO DAILY rosuvastatin [Crestor] 20 mg tablet 40 mg PO HS bupropion HCl 300 mg tablet extended release 24 hr 300 mg PO DAILY acetaminophen 500 mg Tablet 500 mg PO Q6H PRN (Reason: Pain) semaglutide 0.25 mg or 0.5 mg (2 mg/3 mL) Pen Injector 0.5 mg SUBCUT WEEKLY Rx Instructions: Pt takes on . pantoprazole 40 mg Tablet,Delayed Release (Dr/Ec) 40 mg PO Q12HR Qty: 60 0RF Follow-up/Referrals: PHYSICIAN NOT ON STAFF,NONSTAFF [Non-Staff] Quality HEART score for chest pain patients History: moderately suspicious ECG: non specific repolarization disturbance/LBTB/PM Age: > 45 and < 65 years Risk factors: > or = to 3 risk factors of atherosclerotic disease Troponin: < or = to 1x normal limit Heart score: 5
[2025-01-01 15:47] LABS: Alanine Aminotransferase 30 U/L (6-50); Albumin Level 4.1 g/dL (3.5-5.1); Alkaline Phosphatase 79 U/L (38-126); Anion Gap 6 mmol/L (4-12); Aspartate Amino Transferase 29 U/L (17-59); Bilirubin,Total 0.7 mg/dL (0.2-1.3); Blood Urea Nitrogen 23 mg/dL (9-20); Calcium 8.7 mg/dL (8.4-10.2); Carbon Dioxide 25 mmol/L (22-30); Chloride 107 mmol/L (98-107); Estimated CRCL calculation 76 ml/min; Estimated Glomerular Filt Rate > 60; Glucose 99 mg/dL (65-110); Lipase 120 U/L (23-300); Potassium 4.0 mmol/L (3.4-5.0); Sodium 138 mmol/L (137-145); Total Protein 6.7 g/dL (6.3-8.2)
[2025-01-01 15:59] LABS: Troponin I < 0.012 ng/mL (0.000-0.034)
[2025-01-01] MEDS: LORazepam (*CRX) 1 MG TABLET PO (16:08)
[2025-01-01 16:09] LABS: INR 1.1; Partial Thromboplastin Time 23.7 Seconds (22.3-36.8); Prothrombin Time 14.0 Seconds (11.1-14.7)
[2025-01-01 16:14] LABS: Creatine Kinase 50 U/L (55-170)
--- OUTSIDE RECORDS SUMMARY | 2025-01-01 16:36 | XMS_ITS | Encounter Summary ---
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
--- OUTSIDE RECORDS SUMMARY | 2025-01-01 16:36 | XMS_ITS | Clinical Summary ---
Author Organization [facility] [address] Address [address] [place] [address] Care Team Providers Care Maintenance Job Titles Name Role Phone Opal Anderson MD Primary Care Provider Allergies No known active allergies Medications ASPIRIN ORALIndications :prevention of thrombosis,Hx OH Take 81 mg by mouth nightly 1 Active multivitamin tabletIndicatio ns:Vitamin Deficiency Prevention Take 1 tablet by mouth every morning Active acetaminophen (TYLENOL) 500 mg tabletIndicatio ns:Pain Take 1 tablet (500 mg total) by mouth every 6 (six) hours as needed for pain Active nitroglycerin (NITROSTAT) 0.4 mg SL tabletIndicatio ns:Coronary artery disease of cahu[place] artery of [place]ahu[place] heart with stable angina pectoris Place 1 tablet (0.4 mg total) under the tongue every 5 (five) minutes as needed for chest pain 25 tablet 2 5 027 Active omeprazole (PriLOSEC) 40 mg capsule Take 1 capsule (40 mg total) by mouth 2 (two) times a day 60 capsule 11 5 Active clopidogreL (PLAVIX) 75 mg tablet TAKE 1 TABLET BY MOUTH EVERY DAY 90 tablet 1 5 Active semaglutide (Wegovy) 0.25 mg/0.5 mL auto-injectorIn dications:BMI 35.0-35.9,adult ,Morbid (severe) obesity due to excess calories (HCC) Inject 0.25 mg under the skin every 7 days 2 mL 5 Active busPIRone (BUSPAR) 5 mg tabletIndicatio ns:Anxiety Take 1 tablet (5 mg total) by mouth 2 (two) times a day 180 tablet 1 5 Active metoprolol XL (TOPROL-XL) 25 mg extended release tablet TAKE 1 TABLET (25 MG TOTAL) BY MOUTH DAILY. 90 tablet 1 5 Active rosuvastatin (CRESTOR) 20 mg tablet TAKE 1 TABLET BY MOUTH EVERY DAY 90 tablet 2 5 Active isosorbide mononitrate ER (IMDUR) 30 mg 24 hr tablet TAKE 1 TABLET BY MOUTH EVERY DAY 90 tablet 1 5 Active metoprolol XL (TOPROL-XL) 25 mg extended release tablet Take 1 tablet (25 mg total) by mouth daily 90 tablet 3 4 025 Discontinued rosuvastatin (CRESTOR) 20 mg tablet Take 1 tablet (20 mg total) by mouth daily 90 tablet 2 5 025 Discontinued isosorbide mononitrate ER (IMDUR) 30 mg 24 hr tablet TAKE 1 TABLET BY MOUTH EVERY DAY 90 tablet 5 025 Discontinued Active Problems Problem Noted Date Diagnosed Date [...] work up and he tells me his medical interpreter does not think his symptoms are cardiac [...] PT and is following with Ortho at [place] -was given a steroid injection by ortho [...] artery disease of n ative artery of cahuilla heart with stable angina pectoris 06/23/2022 Anxiety [...] Encounters Date Type Department Care Team Description 12/26/2024 11:[address] [facility] Occupational Therapy [address] [place] [phone] Nadya Cagle, OT Attention and concentration deficit (Primary Dx) 12/18/2024 10:[address] [facility] Occupational Therapy [address] [place] [phone] Nadya Cagle, OT Attention and concentration deficit (Primary Dx) 12/18/20[address] [facility] Occupational Therapy [address] [place] [phone] 11/20/2024 7:[address] [facility] Psychiatry [address], [address] Medical [facility] [place] [address] Ana Rowley NP Attention and concentration deficit (Primary Dx); Illness anxiety disorder; Anxiety 10/31/2024 1:30 PM CDT Office Visit [facility] Cardiology [address] [facility] [address] [place] [phone] Herb Worrell MD Coronary artery disease of cahuilla artery of [place]ahu[place] heart with stable angina pectoris (Primary Dx); Status post insertion of drug eluting coronary artery stent; Atrial fibrillation with RVR (HCC) 10/14/2024 Results Follow-Up [facility] Gastroenterology [address] [place] [address] [place] [address] Nat Jaffe PA High resolution esophageal motility (manometry) and ambulatory pH impedance > 1 hr (24 hr) - 10/14/2024 Results Follow-Up [facility] Gastroenterology [address] [place] [address] [place] [address] Nat Jaffe PA Ambulatory esophageal pH impedance function test > 1 hour (24 hr) - 10/08/2024 6:15 AM CDT - 10/08/2024 11:59 PM CDT Hospital Encounter [facility] [address] [place] [phone] Dysphagia, unspecified type Discharge Disposition: Discharge to home or self care 10/07/2024 6:09 AM CDT - 10/07/2024 11:59 PM CDT Hospital Encounter [facility] [address] [place] [phone] Dysphagia, unspecified type Discharge Disposition: Discharge to home or self care 10/02/2024 Telephone [facility] Cardiology at [address] [place] [address] Irasema Shea NP from Last 3 Months Immunizations Immunization Administration [...] on file 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 Gender Identity Not on file Sexual [...] as needed Medical Devices Implanted Type Area Reporting Process Consultant Device Identifier Shelf Expiration Date Model / [...] 10/14/2024 6:58 AM CDT Dysphagia, unspecified type PSA SCREEN Routine 05/24/2024 3:29 PM HEAD SUGAR REPROCESS OPERATOR Difficulty in voiding COLONOSCOPY 03/20/2024 2:33 PM HEAD SUGAR REPROCESS OPERATOR from Last 3 Months or Most Recently Relevant to Health Maintenance Results * Ambulatory esophageal pH impedance function test > 1 hour (24 hr) - (10/14/2024 6:59 AM CDT) Anatomical Region Laterality Modality Other [facility] PROCEDURE ORDE RABLES Final Result * High resolution esophageal motility (manometry) and ambulatory pH impedance > 1 hr (24 hr) - (10/14/2024 6:58 AM CDT) Anatomical Region Laterality Modality Other Kat [facility] PROCEDURE ORDE RABLES Final Result * PSA screen (05/24/2024 3:29 PM HEAD SUGAR REPROCESS OPERATOR) PSA-Total 0.71 <=3.90 ng/mL Comment: Interpretive Data [...] last revised 21. Blood 05/24/2024 3:29 PM HEAD SUGAR REPROCESS OPERATOR 05/24/2024 4:02 PM HEAD SUGAR REPROCESS OPERATOR Lisa Allen RESIDENT CARE ASSOCIATE LAB BLOOD ORDERABLES Amna l Result [facility] Department of Laboratories [place], [place] [phone] * Colonoscopy (03/20/2024 2:33 PM HEAD SUGAR REPROCESS OPERATOR) Anatomical Region Laterality Modality Other Narrative Procedure Note Ramon Ding MD - 03/20/2024 2:33 PM [facility] Patient Name: Rafi Yepez Procedure Date: 03/20/2024 2:33 PM Date of : 1970 Admit Type: Outpatient Age: 53 Gender: Male Attending MD: Ramon Ding M.D. Room: [facility] ENDOSCOPY ROOM 4 Note Status: Finalized [...] passed under direct vision.The CF HQ [id number] endoscope was introducedthrough the anus and advanced [...] one hemostatic clip was successfully placed. 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 Therewas no bleeding during, or at [...] Most Recently Relevant to Health Maintenance [facility] [employer] [facility] HMO Advance Directives For more information, please contact: [phone] * Full Code (Latest Code Status on File) Date Activated Date Inactivated Comments 03/20/2024 1:49 PM 03/20/2024 7:38 PM Care Teams Maintenance Job Titles Relationship Specialty Start Date End Date Opal Anderson MD PCP - General Internal Medicine 11/11/21
--- OUTSIDE RECORDS SUMMARY | 2025-01-01 16:36 | XMS_ITS | Encounter Summary ---
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
--- NOTE | 2025-01-01 16:46 | P.HP_ITS ---
H&P: HPI History of Present Illness Date/Time: 01/01/25 16:46 Chief Complaint: Chest pain Narrative: 54-year-old male past medical history of hypertension, hyperlipidemia, KATIE, CAD status post stents, and atrial fibrillation presents the hospital chest pain. Patient was brought in by EMS complaining of chest pain, dry mouth, dizziness, and clammy skin. He states that the chest pain is intermittent and sharp. Patient states that is been going on for a little while and is concerned that it is cardiac related. On bedside exam patient has no chest pain, no pressure no nausea no left arm pain. Patient currently has no complaints at all. Of note patient presented to the emergency room on 11/22/24 with chest pain or troponins were trended in the emergency room and he was discharged home. Lab work in the ED CBC is within normal limits, BMP is within normal limits, 1st troponin is negative. Will admit patient for chest pain due to comorbidities. EKG sinus rhythm with incomplete right bundle branch block. Review of Systems Review of Systems: 12 systems were reviewed and are negativ e except for as per HPI. [facility] Past Medical History Medical History Meniere disease Skin cancer Hypertension Obstructive sleep apnea Coronary artery disease Paroxysmal atrial fibrillation Chest pain Surgical History Surgical History History of coronary artery stent placement (02/2021) Family History Family History Father Diabetes mellitus Heart disease FH: CABG (coronary artery bypass surgery) Kidney calculi Sibling Diabetes mellitus Kidney calculi Mother COPD (chronic obstructive pulmonary disease) Social History Social History Social History: Surrogate medical decision maker: Deedee Yepez, spouse. Code status: Full code. Smoking status: Never smoker Alcohol intake: never Substance use: never Substance use type: does not use Do You Feel Safe in your Home?: Yes Lack of Transportation: No Lack of Food: Never True Current Housing: I Have Housing Concerned About Future Housing: No Difficulty Paying Gas/Electric Bills: No Difficulty Paying for Meds: No Currently Unemployed: No Education: Trade/Vocational Certificate Difficulty w/ Childcare or Family Care: No Additional living arrangements comments: Lives in [place] with spouse. Originally from [place]. Additional occupation/education comments: Works at the [employer]. Spiritual care concerns: No Meds Home Medications and Allergies Home Medications ?Medication ?Instructions ?Recorded ?Confirmed ?Type aspirin 81 mg tablet 81 mg PO HS 05/18/21 5 History clopidogrel 75 mg tablet (Plavix) 75 mg PO DAILY 05/1801/01/25 History metoprolol succinate 50 mg 25 mg PO DAILY 05/18/21 History tablet,extended release 24 hr (Toprol XL) nitroglycerin 0.4 mg sublingual 0.4 mg sublingual PRN PRN Chest 05/18/21 01/01/25 History tablet (Nitrostat) Pain rosuvastatin 20 mg tablet (Crestor) 40 mg PO HS 01/01/25 History acetaminophen 500 mg tablet 500 mg PO Q6H PRN Pain 01/01/25 History semaglutide 0.25 mg or 0.5 mg (2 0.5 mg subcut WEEKLY 07/15/23 01/01/25 History mg/3 mL) subcutaneous pen injector pantoprazole 40 mg tablet,delayed 40 mg PO Q12HR #60 t abs 10/21/23 01/01/25 Rx release buspirone 5 mg tablet 5 mg PO BID 01/01/25 5 History Allergies Allergy/AdvReac Type Severity Reaction Status Date / Time No Known Allergies Allergy Verified 01/01/25 17:04 Vital Signs Vital Signs - 24 hr 01/01/25 15:11 01/01/25 15:15 01/01/25 15:30 Temperature 98.0 F Pulse Rate 101 H 102 H Respiratory Rate 16 17 Blood Pressure 119/83 121/76 Pulse Oximetry 96 99 Oxygen Delivery Autopap Room Air 01/01/25 15:30 01/01/25 15:45 01/01/25 16:00 Temperature Pulse Rate 100 95 91 Respiratory Rate 21 H 15 17 Blood Pressure 117/85 111/71 106/77 Pulse Oximetry 97 97 95 Oxygen Delivery 01/01/25 16:15 01/01/25 16:30 Temperature Pulse Rate 85 90 Respiratory Rate 18 20 Blood Pressure 112/83 107/74 Pulse Oximetry 96 95 Oxygen Delivery Exam Narrative: General: well appearing, appears stated age. HEENT: normocephalic, atraumatic. Mucous membranes moist. EOMI, PERRLA, bilateral sclera anicteric, no conjunctival injection. Neck supple without JVD, lymphadenopathy, or bruit. Respiratory: clear to ascultation bilaterally. No rales/rhonic/wheezes. Cardiovascular: Regular rate and rhythm, normal S1-S2 upon ascultation. No murmurs, rubs, or clicks. PMI is nondisplaced, capillary refill less than 3 second. Abdomen: Soft, round, no pulsatile masses, nondistended and nontender. No rebound, no guarding. No CVA tenderness, no hepatosplenomegaly. Bowel sounds present to all four quadrants. No high pitch or tinkling sounds, resonant to percussion. Extremities: No cyanosis, clubbing, or edema present. Pulses are palpable 2/2. Active ROM to all four extremities. Neuro: Alert and orientated x 4. PERRLA. Cranial nerves 2-12 intact without focal deficit. Skin: Warm, dry, and intact, without rash, erythema, or lesion. Psych: pleasant, cooperative, normal speech, normal affect, no hallucinations, no dysarthia H&P: Results Labs Labs: Short CBC 01/01/25 Range/Units 15:32 WBC 6.6 (4.5-10.0) K/mm3 Hgb 15.0 (14.0-18.0) g/dL Hct 46.1 (42.0-52.0) % Plt Count 155 (150-375) k/mm3 BMP 01/01/25 15:32 Sodium 138 Potassium 4.0 Chloride 107 Carbon Dioxide 25 BUN 23 H Creatinine 1.09 Glucose 99 Calcium 8.7 Cardiac Enzymes 01/01/25 Range/Units 15:32 Total Creatine Kinase 50 L (55-170) U/L Troponin I < 0.012 (0.000-0.034) ng/mL Liver Function 01/01/25 Range/Units 15:32 Total Bilirubin 0.7 (0.2-1.3) mg/dL AST 29 (17-59) U/L ALT 30 (6-50) U/L Alkaline Phosphatase 79 (38-126) U/L Albumin 4.1 (3.5-5.1) g/dL Assessment and Plan Assessment and plan (1) Chest pain: Qualifiers: Chest pain type: unspecified Qualified Code(s): R07.9 - Chest pain, unspecified Code(s): R07.9 - Chest pain, unspecified Status: Acute Assessment and Plan: Telemetry monitoring Trend troponins EKGs p.r.n. 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 Qualified Code(s): I15.2 - Hypertension secondary to endocrine disorders Code(s): I10 - Essential (primary) hypertension Status: Acute Assessment and Plan: Patient does not appear to be on hypertensive medications (4) Anxiety: Code(s): F41.9 - Anxiety disorder, unspecified Status: Acute Assessment and Plan: Continue anti anxiety medication (5) Paroxysmal atrial fibrillation: Code(s): I48.0 - Paroxysmal atrial fibrillation Status: Acute Assessment and Plan: Continue metoprolol Quality VTE Prophylaxis VTE prophylaxis: mechanical ordered and pharmacologic ordered Hospitalist MIPS Advance Care Plan I have confirmed that the patient's Advanced Care Plan is present, code status is documented, or surrogate decision maker is listed in patient medical record.: Yes Medication Reconciliation I have utilized all available resources to obtain, update and review the patients current medications (includes all prescriptions, OTC, herbals, cannabis, and nutritional supplements).: Yes
--- NOTE | 2025-01-01 17:01 | ADMGEN ---
This patient, Rafi Yepez, was admitted to IMU Room 209-01 at approximately 1700. Patient/family oriented to hospital policies and general routines including ID bracelet, bed and alarms, visiting hours, pain management, procedures, bathroom and other care routines, personal items, smoking policy, room service/diet, and visiting hours. Information on how to activate the Rapid Response Team has been discussed. Patient/Family are encouraged to report perceived risks to care and to ask questions if they do not understand what they are told or what they should do.
--- NOTE | 2025-01-01 17:35 | PC.NURSE ---
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 Notified Yocasta who gave order to d/c aspirin one time order.
[2025-01-01 18:11] LABS: Cholesterol 100 mg/dL (0-200); HDL Direct 30 mg/dL; Triglycerides 179 mg/dL (<150)
[2025-01-01 19:00] LABS: Troponin I < 0.012 ng/mL (0.000-0.034)
[2025-01-01] MEDS: PANTOPRAZOLE 40 MG TABLET PO (20:06)
[2025-01-01] MEDS: ROSUVASTATIN 20 MG TABLET 40 MG PO (20:07)
[2025-01-01 21:58] LABS: Troponin I < 0.012 ng/mL (0.000-0.034)
[2025-01-02] VITALS (25 sets, daily range): BP systolic 94–121; BP diastolic 63–83; PULSE 58–86; RESP 12–20; TEMP 36.6–36.7; O2SAT 94–99
--- NOTE | 2025-01-02 | ECHO_ITS ---
Patient Info Name: Rafi Yepez Age: 54 years : 1970 Gender: Male Ht: 69 in Wt: 248 lbs BSA: 2.38 m2 HR: 64 bpm BP: 107 / 76 mmHg Heart Rhythm: Sinus Rhythm Technical Quality: Fair Exam Date: 01/02/2025 10:00 AM Patient Status: O Admit Date: 01/01/2025 Exam Type: CA echo doppler color flow Complete two-dimensional, color flow and Doppler transthoracic echocardiogram is performed. Staff Referring Physician: Ezio Edwards MD Tack Puller Machine: Negar Robledo Attending Provider: Juan Duggan MD Summary 1. Complete two-dimensional, color flow and Doppler transthoracic echocardiogram is performed. 2. Left ventricular chamber dimension is normal. 3. Left ventricular systolic function is normal, estimated at 60-65. 4. There is mildly increased left ventricular wall thickness. 5. The left ventricular diastolic function is normal. 6. The basal inferolateral wall, and mid inferolateral wall are hypokinetic. 7. There is mild mitral valve regurgitation. 8. There is mild tricuspid valve regurgitation. 9. There is moderate pulmonic regurgitation. Left Ventricle Left ventricular chamber dimension is normal. Left ventricular systolic function is normal, estimated at 60-65. There is mildly increased left ventricular wall thickness. The left ventricular diastolic function is normal. The basal inferolateral wall, and mid inferolateral wall are hypokinetic. All other botello appear normal. Right Ventricle Right ventricular chamber dimension is normal. Right ventricular systolic function is normal. Left Atria Left atrial chamber dimension is normal. Right Atria Right atrial chamber dimension is normal. Atrial Septum Intact interatrial septum visualized by color flow imaging. Aortic Valve The aortic valve is trileaflet. There is mild aortic valve sclerosis. There is no aortic valve stenosis. There is trace aortic valve regurgitation. Pulmonic Valve The pulmonic valve is normal. There is no pulmonic valve stenosis. There is moderate pulmonic regurgitation. Mitral Valve The mitral valve has normal leaflets. There is no mitral valve stenosis. There is mild mitral valve regurgitation. Tricuspid Valve The tricuspid valve leaflets are normal. There is no significant tricuspid valve stenosis. There is mild tricuspid valve regurgitation. No pulmonary hypertension, estimated pulmonary arterial systolic pressure is 30 mmHg. Pericardium/Pleural The pericardium appears normal. There is trivial pericardial effusion. Inferior Vena Cava Normal inferior vena cava with >50% collapse upon inspiration consistent with normal right atrial pressure, 10 mmHg. Aorta The aortic root size at the sinus of Valsalva is mildly dilated. Left Ventricular Outflow Tract Name Value Normal LVOT 2D LVOT Diameter 2.1 cm LVOT Doppler LVOT Peak Velocity 106 cm/s LVOT Peak Gradient 4 mmHg LVOT Mean Gradient 3 mmHg LVOT VTI 23 cm LVOT VTI/AV VTI Ratio 1.0 LVOT Stroke Volume 78 ml LVOT CO 16.0 l/min LVOT CI 6.7 l/min/m2 Pulmonic Valve Name Value Normal PV Doppler PV Peak Velocity 115 cm/s PV Peak Gradient 5 mmHg Mitral Valve Name Value Normal MV Diastolic Function MV E Peak Velocity 76 cm/s MV A Peak Velocity 51 cm/s MV E/A 1.5 MV Decel Time (PW) 249 ms MV Annular TDI MV E/e' (Septal) 7.5 MV E/e' (Lateral) 5.6 MV E/e' (Average) 6.6 Tricuspid Valve Name Value Normal TV Regurgitation Doppler TR Peak Velocity 224 cm/s TR Peak Gradient 20 mmHg Estimated PAP/RSVP RA Pressure 10 mmHg <=5 PA Systolic Pressure 30 mmHg <36 RV Systolic Pressure 30 mmHg <36 TV Annular TDI TV Lateral Mariaa s' Velocity 11.9 cm/s >=9.5 Aorta Name Value Normal Ascending Aorta Ao Root Diameter (MM) 3.9 cm Ao Root Diam Index (MM) 1.6 cm/m2 Aortic Valve Name Value Normal AV Doppler AV Peak Velocity 102 cm/s AV Peak Gradient 4 mmHg AV Mean Gradient 3 mmHg AV VTI 23 cm AV Area (Cont Eq VTI) 3.5 cm2 >=3.0 AV Area (Cont Eq Davie) 3.6 cm2 AV DI (Davie) 1.04 AV Regurgitation 2D LVOT Area 3.4 cm2 Ventricles Name Value Normal LV Dimensions 2D/MM IVS Diastolic Thickness (2D) 1.1 cm 0.6-1.0 LVID Diastole (2D) 5.2 cm 4.2-5.8 LVIW Diastolic Thickness (2D) 1.1 cm 0.6-1.0 LVID Systole (2D) 3.7 cm 2.5-4.0 LVOT Diameter 2.1 cm LV Mass (2D Cubed) 215.34 g 88.00-224.00 LV Mass Index (2D Cubed) 90 g/m2 49-115 Relative Wall Thickness (2D) 0.41 <=0.42 LV Fractional Shortening/Ejection Fraction 2D/MM LV Fractional Shortening (2D) 28 % 25-43 LV EF (2D Teichholz) 54 % LV Diastolic Volume (4C MOD) 115 ml LV EF (4C MOD) 62 % LV Diastolic Volume (2C MOD) 108 ml LV EF (2C MOD) 59 % LV Diastolic Volume (BP MOD) 116 ml 62-150 LV Diastolic Volume Index (BP MOD) 49 ml/m2 34-74 LV Systolic Volume (BP MOD) 45 ml 21-61 LV Systolic Volume Index (BP MOD) 19 ml/m2 11-31 LV EF (BP MOD) 61 % 52-72 LV Diastolic Length (4C) 9.2 cm LV Systolic Length (4C) 7.7 cm LV Stroke Volume (4C MOD) 72 ml RV Dimensions 2D/MM RVID Diastole (2D) 3.9 cm 2.1-3.5 Atria Name Value Normal LA Dimensions LA Dimension (MM) 4.0 cm 3.0-4.0 LA Volume (4C A-L) 36 ml LA Volume (BP A-L) 44 ml RA Dimensions RA Systolic Major Shaw Length (4C) 4.3 cm 2.1-2.7 RA Area (4C) 13.8 cm2 <=18.0 Wall Motion Scoring Wall Motion Scoring Index: 1.12 Report Signatures
[2025-01-02 03:52] LABS: Hematocrit 44.9 % (42.0-52.0); Hemoglobin 14.7 g/dL (14.0-18.0); Immature Granulocyte Percent A 0.2 % (0-0.5); Lymphocytes Absolute Auto 1.29 K/mm3 (0.9-3.2); Mean Corpuscular HGB Conc 32.7 g/dl (32-36); Mean Corpuscular Hemoglobin 28.0 pg (26-34); Mean Corpuscular Volume 85.5 fl (80-100); Nucleated Red Blood Cells Absolute Auto 0.000 K/mm3 (0.0-0.012); Nucleated Red Blood Cells Perc 0.0 % (0.0-0.2); Platelet Count Result 148 k/mm3 (150-375); Red Blood Count 5.25 M/mm3 (4.6-6.20); White Blood Count 5.4 K/mm3 (4.5-10.0)
[2025-01-02 04:19] LABS: Anion Gap 4 mmol/L (4-12); Blood Urea Nitrogen 20 mg/dL (9-20); Calcium 8.7 mg/dL (8.4-10.2); Carbon Dioxide 29 mmol/L (22-30); Chloride 105 mmol/L (98-107); Estimated CRCL calculation 90 ml/min; Estimated Glomerular Filt Rate > 60; Glucose 91 mg/dL (65-110); Potassium 4.1 mmol/L (3.4-5.0); Sodium 138 mmol/L (137-145)
[2025-01-02] MEDS: METOPROLOL SUCCINATE EXT REL 25 MG TABCR PO (08:11)
[2025-01-02] MEDS: ASPIRIN 81 MG CHEWABLE TABLET PO (08:11)
[2025-01-02] MEDS: CLOPIDOGREL BISULFATE 75 MG TABLET PO (08:12)
[2025-01-02] MEDS: DOCUSATE SODIUM 100 MG CAPSULE PO (08:12)
[2025-01-02] MEDS: PANTOPRAZOLE 40 MG TABLET PO ×2 (08:12→20:00)
[2025-01-02] MEDS: ENOXAPARIN 40 MG/0.4 ML SYRINGE SUB-Q (08:13)
--- NOTE | 2025-01-02 09:56 | PM.CNCAR ---
Assessment and Plan Assessment and plan (1) Paroxysmal atrial fibrillation: Code(s): I48.0 - Paroxysmal atrial fibrillation Status: Acute (2) Coronary artery disease: Code(s): I25.10 - Atherosclerotic heart disease of [place] coronary artery without angina pectoris Status: Acute (3) Hypertension: Qualifiers: Hypertension type: secondary to endocrine disorders Qualified Code(s): I15.2 - Hypertension secondary to endocrine disorders Code(s): I10 - Essential (primary) hypertension Status: Acute Plan Diagnosis: Unstable angina (chest pain at rest) Coronary artery disease status post PCI to proximal LAD after an AMI, PCI to proximal LCX, nonobstructive CAD with 45% stenosis from mid to distal LAD, patent stent in proximal LCX, 50% stenosis in distal left circ, 50% stenosis in proximal diagonal 35% stenosis in proximal RCA, 35% stenosis in mid RCA, 70% stenosis in distal RCA, 90% stenosis in the RPDA Hypertension Paroxysmal atrial fibrillation-currently sinus rhythm; not on anticoagulation as patient had only 3 episodes Obstructive sleep apnea Plan: Continue aspirin 81 mg daily, Plavix 75 mg daily Recommend cardiac catheterization to further evaluate unstable angina. Risks, benefits, and alternate options were discussed with patient and he is agreeable to proceed with cardiac catheterization Keep NPO Continue rosuvastatin 40 mg daily Continue metoprolol 25 mg b.i.d. Monitor on telemetry TTE Check and replace electrolytes keep potassium greater than 4 and magnesium greater than 2 Chads Vasc score is 2 (hypertension=1, CAD= 1) but he is not on anticoagulation due to having only 3 known episodes. However he continues to have some symptoms that could be secondary to AFib. Consider loop recorder to understand burden of AFib and discuss anticoagulation Above plan was discussed with patient and he is agreeable History of Present Illness History of Present Illness Consult date/time: 01/02/25 09:56 Reason For Visit: Chest Pain/Anxiety Narrative: 54-year-old male with history of coronary artery disease, STEMI about 4 years ago status post PCI to proximal LAD, hypertension, paroxysmal atrial fibrillation, obstructive sleep apnea, skin cancer, Meniere's disease presents with chief complaints of chest pain. Patient states that he started having dizziness and lightheadedness at about 11:00 a.m. yesterday morning. He went to the urgent care where they noticed an abnormal EKG and advised him to go to the ER. EN route to the ER he had chest pressure of 4/10 in intensity that was coming and going. His symptoms resolved a few hours after he came to the hospital. He reports similar symptoms in November at which time he presented to the ER, ACS was ruled out, and he was discharged home. Patient is accompanied by his who states that patient has symptoms about 3 to 4 times a month. Patient states that a lot of heart his family with his father having a quadruple bypass at age 50 and he at age 60. Patient states that he had an [place] 4 years ago at which time he had a stent to his LAD which was 100% occluded. He remembers having cardiac arrest requiring CPR during this time. He was also diagnosed with atrial fibrillation during this time. He states he had 2 episodes of atrial fibrillation with symptoms of palpitation after the initial episode. He is not on anticoagulation but does not know why. He denies shortness of breath, diaphoresis, recent weight gain, leg swelling, presyncope, syncope, orthopnea, PND. Per patient's he works during the days for 2 weeks and during nights for 2 weeks which is affecting his health. Patient is compliant with all his medications. He is on DAPT with aspirin and Plavix. Troponin x3 negative. EKG shows sinus rhythm, left axis deviation, incomplete right bundle branch block. Cardiology is consulted for further recommendations. Review of Systems Review of Systems: A complete review of systems was performed and pertinent positives are reported in the HPI. [facility] Past Medical History Medical History Meniere disease Skin cancer Hypertension Obstructive sleep apnea Coronary artery disease Paroxysmal atrial fibrillation Chest pain Surgical History Surgical History History of coronary artery stent placement (02/2021) Family History Family History Father Diabetes mellitus Heart disease FH: CABG (coronary artery bypass surgery) Kidney calculi Sibling Diabetes mellitus Kidney calculi Mother COPD (chronic obstructive pulmonary disease) Social History Social History Social History: Surrogate medical decision maker: Deedee Yepez, spouse. Code status: Full code. Smoking status: Never smoker Alcohol intake: never Substance use: never Substance use type: does not use Do You Feel Safe in your Home?: Yes Lack of Transportation: No Lack of Food: Never True Current Housing: I Have Housing Concerned About Future Housing: No Difficulty Paying Gas/Electric Bills: No Difficulty Paying for Meds: No Currently Unemployed: No Education: Trade/Vocational Certificate Difficulty w/ Childcare or Family Care: No Additional living arrangements comments: Lives in [place] with spouse. Originally from [place]. Additional occupation/education comments: Works at the [employer] Spiritual care concerns: No Meds Home Medications and Allergies Home Medications ?Medication ?Instructions ?Recorded ?Confirmed ?Type aspirin 81 mg tablet 81 mg PO HS 05/18/21 01/01/25 History clopidogrel 75 mg tablet (Plavix) 75 mg PO DAILY 05/18/21 01/01/25 History metoprolol succinate 50 mg 25 mg PO DAILY 05/18/21 01/01/25 History tablet,extended release 24 hr (Toprol XL) nitroglycerin 0.4 mg sublingual 0.4 mg sublingual PRN PRN Chest 05/18/21 01/01/25 History tablet (Nitrostat) Pain rosuvastatin 20 mg tablet (Crestor) 40 mg PO HS 05/18/21 01/01/25 History acetaminophen 500 mg tablet 500 mg PO Q6H PRN Pain 07/15/23 01/01/25 History semaglutide 0.25 mg or 0.5 mg (2 0.5 mg subcut WEEKLY 07/15/23 01/01/25 History mg/3 mL) subcutaneous pen injector pantoprazole 40 mg tablet,delayed 40 mg PO Q12HR #60 tabs 10/21/23 01/01/25 Rx release buspirone 5 mg tablet 5 mg PO BID 01/01/25 01/01/25 History Allergies Allergy/AdvReac Type Severity Reaction Status Date / Time No Known Allergies Allergy Verified 01/01/25 17:04 Vital Signs Vital Signs - 24 hr 01/01/25 15:11 01/01/25 15:15 01/01/25 15:30 Temperature 36.7 C Pulse Rate 101 H 102 H Respiratory Rate 16 17 Blood Pressure 119/83 121/76 Pulse Oximetry 96 99 Oxygen Delivery Autopap Room Air 01/01/25 15:30 01/01/25 15:45 01/01/25 16:00 Temperature Pulse Rate 100 95 91 Respiratory Rate 21 H 15 17 Blood Pressure 117/85 111/71 106/77 Pulse Oximetry 97 97 95 Oxygen Delivery 01/01/25 16:15 01/01/25 16:30 01/01/25 16:55 Temperature 36.6 C Pulse Rate 85 90 64 Respiratory Rate 18 20 18 Blood Pressure 112/83 107/74 117/79 Pulse Oximetry 96 95 95 Oxygen Delivery 01/01/25 17:41 01/01/25 18:00 01/01/25 19:56 Temperature 36.9 C Pulse Rate 92 87 Respiratory Rate 15 Blood Pressure 104/65 Pulse Oximetry 96 Oxygen Delivery Room Air 01/01/25 20:00 01/01/25 20:00 01/01/25 22:00 Temperature Pulse Rate 82 70 Respiratory Rate Blood Pressure Pulse Oximetry 96 Oxygen Delivery Room Air 01/02/25 00:00 01/02/25 00:00 01/02/25 00:00 Temperature 36.7 C Pulse Rate 69 65 Respiratory Rate 16 Blood Pressure 110/73 Pulse Oximetry 94 98 Oxygen Delivery Room Air 01/02/25 02:00 01/02/25 03:53 01/02/25 04:00 Temperature 36.6 C Pulse Rate 61 62 58 L Respiratory Rate 16 Blood Pressure 107/76 Pulse Oximetry 97 Oxygen Delivery 01/02/25 04:00 01/02/25 07:53 01/02/25 08:00 Temperature 36.7 C Pulse Rate 68 71 Respiratory Rate 16 Blood Pressure 110/80 Pulse Oximetry 98 97 Oxygen Delivery Room Air 01/02/25 08:11 Temperature Pulse Rate 73 Respiratory Rate Blood Pressure Pulse Oximetry Oxygen Delivery Exam Narrative: General: Alert oriented x3, no acute distress Neck: Supple, no JVD Chest: Bilaterally clear to auscultation, no rales or rhonchi Cardiac: S1, S2 +, regular rate, regular rhythm, no murmurs or rubs Extremities: No pedal edema, no skin rash Neurologic: Alert and oriented x3, no focal neurological deficits Results Labs and Meds 01/02/25 03:30 01/02/25 03:30 Lab results: Cardiac Enzymes 01/01/25 01/01/25 01/01/25 Range/Units 15:32 18:31 21:26 AST 29 (17-59) U/L Troponin I < 0.012 < 0.012 < 0.012 (0.000-0.034) ng/mL Coagulation 01/01/25 Range/Units 15:32 PT 14.0 (11.1-14.7) Seconds APTT 23.7 (22.3-36.8) Seconds Lipids 01/01/25 Range/Units 15:32 Triglycerides 179 H (<150) mg/dL Cholesterol 100 (0-200) mg/dL CBC 01/01/25 01/02/25 Range/Units 15:32 03:30 WBC 6.6 5.4 (4.5-10.0) K/mm3 RBC 5.35 5.25 (4.6-6.20) M/mm3 Hgb 15.0 14.7 (14.0-18.0) g/dL Hct 46.1 44.9 (42.0-52.0) % Plt Count 155 148 L (150-375) k/mm3 Lymph # (Auto) 0.81 L 1.29 (0.9-3.2) K/mm3 [place] # (Auto) 0.6 0.7 H (0.1-0.6) K/mm3 Eos # (Auto) 0.1 0.2 (0-0.3) K/mm3 Baso # (Auto) 0.0 0.0 (0.0-0.1) K/mm3 Comprehensive Metabolic Panel 01/01/25 01/02/25 Range/Units 15:32 03:30 Sodium 138 138 (137-145) mmol/L Potassium 4.0 4.1 (3.4-5.0) mmol/L Chloride 107 105 (98-107) mmol/L Carbon Dioxide 25 29 (22-30) mmol/L BUN 23 H 20 (9-20) mg/dL Creatinine 1.09 1.00 (0.7-1.3) mg/dL Glucose 99 91 (65-110) mg/dL Calcium 8.7 8.7 (8.4-10.2) mg/dL AST 29 (17-59) U/L ALT 30 (6-50) U/L Alkaline Phosphatase 79 (38-126) U/L Total Protein 6.7 (6.3-8.2) g/dL Albumin 4.1 (3.5-5.1) g/dL Intake and Output 01/01/25 01/02/25 01/02/25 23:59 07:59 15:59 Intake Total 515 550 240 Balance 515 550 240 Intake: Oral 515 550 240 Other: # Unmeasured Voids 2 Patient Weight 01/02/25 23:59 Weight 110.5 kg
--- NOTE | 2025-01-02 10:16 | WPDMODSED ---
Moderate Sedation Note-Pt Data Patient Data Allergies Allergy/AdvReac Type Severity Reaction Status Date / Time No Known Allergies Allergy Verified 01/01/25 17:04 Home Medications ?Medication ?Instructions ?Recorded ?Confirmed ?Type aspirin 81 mg tablet 81 mg PO HS 05/18/21 01/01/25 History clopidogrel 75 mg tablet (Plavix) 75 mg PO DAILY 05/18/21 01/01/25 History metoprolol succinate 50 mg 25 mg PO DAILY 05/18/21 01/01/25 History tablet,extended release 24 hr (Toprol XL) nitroglycerin 0.4 mg sublingual 0.4 mg sublingual PRN PRN Chest 05/18/21 01/01/25 History tablet (Nitrostat) Pain rosuvastatin 20 mg tablet (Crestor) 40 mg PO HS 05/18/21 01/01/25 History acetaminophen 500 mg tablet 500 mg PO Q6H PRN Pain 07/15/23 01/01/25 History semaglutide 0.25 mg or 0.5 mg (2 0.5 mg subcut WEEKLY 07/15/23 01/01/25 History mg/3 mL) subcutaneous pen injector pantoprazole 40 mg tablet,delayed 40 mg PO Q12HR #60 tabs 10/21/23 01/01/25 Rx release buspirone 5 mg tablet 5 mg PO BID 01/01/25 01/01/25 History Current Medications: Active Medications Acetaminophen (Acetaminophen 325 Mg Tablet) 650 mg PO Q4H PRN PRN Reason: Mild Pain (1-3) or Fever Aspirin (Aspirin 81 Mg Chewable Tablet) 81 mg PO DAILY@0800 [facility] Last Admin: 01/02/25 08:11 Dose: 81 mg Buspirone HCl (Buspirone Hcl 5 Mg Tablet) 5 mg PO Q12HR [facility] Last Admin: 01/02/25 08:54 Dose: 5 mg Clopidogrel Bisulfate (Clopidogrel Bisulfate 75 Mg Tablet) 75 mg PO DAILY [facility] Last Admin: 01/02/25 08:12 Dose: 75 mg Docusate Sodium (Docusate Sodium 100 Mg Capsule) 100 mg PO BID PRN PRN Reason: Constipation Last Admin: 01/02/25 08:12 Dose: 100 mg Enoxaparin Sodium (Enoxaparin 40 Mg/0.4 Ml Syringe) 40 mg SUB-Q DAILY [facility] Last Admin: 01/02/25 08:13 Dose: 40 mg Metoprolol Succinate (Metoprolol Succinate Ext Rel 25 Mg Tabcr) 25 mg PO DAILY [facility] Last Admin: 01/02/25 08:11 Dose: 25 mg Nitroglycerin (Nitroglycerin Sl 0.4 Mg Tablet) 0.4 mg SUBLINGUAL Q5MIN PRN PRN Reason: Chest Pain Pantoprazole Sodium (Pantoprazole 40 Mg Tablet) 40 mg PO Q12HR [facility] Last Admin: 01/02/25 08:12 Dose: 40 mg Perflutren Lipid Microsphere (Perflutren Lipid Microspheres 1.5 Ml Vial Diluted To 10 Ml Total Volume) 0 ml IV PUSH ONCE PRN; Protocol PRN Reason: adequate visualization Stop: 01/04/25 19:16 Perflutren Lipid Microsphere (Perflutren Lipid Microspheres 1.5 Ml Vial Diluted To 10 Ml Total Volume) 0 ml IV PUSH ONCE PRN; Protocol PRN Reason: adequate visualization Stop: 01/05/25 08:37 Rosuvastatin Calcium (Rosuvastatin 20 Mg Tablet) 40 mg PO HS [facility] Last Admin: 01/01/25 20:07 Dose: 40 mg Sedation/Anesthesia: No previous sedation/anesthesia problems (including family history). [facility] Past Medical History Medical History Meniere disease Skin cancer Hypertension Obstructive sleep apnea Coronary artery disease Paroxysmal atrial fibrillation Chest pain Surgical History Surgical History History of coronary artery stent placement (02/2021) Family History Family History Father Diabetes mellitus Heart disease FH: CABG (coronary artery bypass surgery) Kidney calculi Sibling Diabetes mellitus Kidney calculi Mother COPD (chronic obstructive pulmonary disease) Social History Social History Social History: Surrogate medical decision maker: Deedee Yepez, spouse. Code status: Full code. Smoking status: Never smoker Alcohol intake: never Substance use: never Substance use type: does not use Do You Feel Safe in your Home?: Yes Lack of Transportation: No Lack of Food: Never True Current Housing: I Have Housing Concerned About Future Housing: No Difficulty Paying Gas/Electric Bills: No Difficulty Paying for Meds: No Currently Unemployed: No Education: Trade/Vocational Certificate Difficulty w/ Childcare or Family Care: No Additional living arrangements comments: Lives in [place] with spouse. Originally from [place]. Additional occupation/education comments: Works at the [employer] Spiritual care concerns: No Mod Sed Physical Exam Physical Exam Pre Procedural Exam: Normal: Lungs, Heart Rate and Heart Rhythm Hours since solid foods: 6 Hours since liquid intake: 6 Mallampati Classification: class III Internal Medicine - PN: Obj Da Vital Signs Vital Signs: Vital Signs - 24 hr 01/01/25 15:11 01/01/25 15:15 01/01/25 15:30 Temperature 36.7 C Pulse Rate 101 H 102 H Respiratory Rate 16 17 Blood Pressure 119/83 121/76 Pulse Oximetry 96 99 Oxygen Delivery Autopap Room Air 01/01/25 15:30 01/01/25 15:45 01/01/25 16:00 Temperature Pulse Rate 100 95 91 Respiratory Rate 21 H 15 17 Blood Pressure 117/85 111/71 106/77 Pulse Oximetry 97 97 95 Oxygen Delivery 01/01/25 16:15 01/01/25 16:30 01/01/25 16:55 Temperature 36.6 C Pulse Rate 85 90 64 Respiratory Rate 18 20 18 Blood Pressure 112/83 107/74 117/79 Pulse Oximetry 96 95 95 Oxygen Delivery 01/01/25 17:41 01/01/25 18:00 01/01/25 19:56 Temperature 36.9 C Pulse Rate 92 87 Respiratory Rate 15 Blood Pressure 104/65 Pulse Oximetry 96 Oxygen Delivery Room Air 01/01/25 20:00 01/01/25 20:00 01/01/25 22:00 Temperature Pulse Rate 82 70 Respiratory Rate Blood Pressure Pulse Oximetry 96 Oxygen Delivery Room Air 01/02/25 00:00 01/02/25 00:00 01/02/25 00:00 Temperature 36.7 C Pulse Rate 69 65 Respiratory Rate 16 Blood Pressure 110/73 Pulse Oximetry 94 98 Oxygen Delivery Room Air 01/02/25 02:00 01/02/25 03:53 01/02/25 04:00 Temperature 36.6 C Pulse Rate 61 62 58 L Respiratory Rate 16 Blood Pressure 107/76 Pulse Oximetry 97 Oxygen Delivery 01/02/25 04:00 01/02/25 07:53 01/02/25 08:00 Temperature 36.7 C Pulse Rate 68 71 Respiratory Rate 16 Blood Pressure 110/80 Pulse Oximetry 98 97 Oxygen Delivery Room Air 01/02/25 08:11 Temperature Pulse Rate 73 Respiratory Rate Blood Pressure Pulse Oximetry Oxygen Delivery Intake/Output Intake/Output: Intake & Output 12/30/24 12/31/24 01/01/25 01/02/25 23:59 23:59 23:59 23:59 Intake Total 515 790 Balance 515 790 Meds/Results Medications: Active Medications Generic Name Dose Route Start Last Admin Trade Name Freq PRN Reason Stop Dose Admin Acetaminophen 650 mg 01/01/25 16:08 Acetaminophen 325 Mg Tablet PO Q4H PRN Mild Pain (1-3) or Fever Aspirin 81 mg 01/02/25 08:00 01/02/25 08:11 Aspirin 81 Mg Chewable Tablet PO 81 mg DAILY@0800 [facility] Administration Buspirone HCl 5 mg 01/01/25 21:00 01/02/25 08:54 Buspirone Hcl 5 Mg Tablet PO 5 mg Q12HR [facility] Administration Clopidogrel Bisulfate 75 mg 01/02/25 09:00 01/02/25 08:12 Clopidogrel Bisulfate 75 Mg Tablet PO 75 mg DAILY [facility] Administration Docusate Sodium 100 mg 01/01/25 16:57 01/02/25 08:12 Docusate Sodium 100 Mg Capsule PO 100 mg BID PRN Administration Constipation Enoxaparin Sodium 40 mg 01/02/25 09:00 01/02/25 08:13 Enoxaparin 40 Mg/0.4 Ml Syringe SUB-Q 40 mg DAILY [facility] Administration Metoprolol Succinate 25 mg 01/02/25 09:00 01/02/25 08:11 Metoprolol Succinate Ext Rel 25 Mg Tabcr PO 25 mg DAILY [facility] Administration Nitroglycerin 0.4 mg 01/01/25 19:15 Nitroglycerin Sl 0.4 Mg Tablet SUBLINGUAL Q5MIN PRN Chest Pain Pantoprazole Sodium 40 mg 01/01/25 21:00 01/02/25 08:12 Pantoprazole 40 Mg Tablet PO 40 mg Q12HR [facility] Administration Perflutren Lipid Microsphere 0 ml 01/01/25 19:15 Perflutren Lipid Microspheres 1.5 Ml Vial Diluted To 10 Ml Total Volume IV PUSH 01/04/25 19:16 ONCE PRN adequate visualization Protocol Perflutren Lipid Microsphere 0 ml 09/18/25 08:37 Perflutren Lipid Microspheres 1.5 Ml Vial Diluted To 10 Ml Total Volume IV PUSH 01/05/25 08:37 ONCE PRN adequate visualization Protocol Rosuvastatin Calcium 40 mg 01/01/25 21:00 01/01/25 20:07 Rosuvastatin 20 Mg Tablet PO 40 mg HS [facility] Administration Radiology Results: ITS Impressions Chest X-Ray 01/01/25 16:11 Impression: No acute cardiopulmonary abnormality. Labs 01/02/25 03:30 01/02/25 03:30 Labs: Laboratory Results - last 24 hr 01/01/25 01/01/25 01/01/25 15:32 18:31 21:26 WBC 6.6 RBC 5.35 Hgb 15.0 Hct 46.1 MCV 86.2 MCH 28.0 MCHC 32.5 RDW 11.9 Plt Count 155 MPV 10.2 Immature Gran % (Auto) 0.2 Neut % (Auto) 77.0 H Lymph % (Auto) 12.3 L Travis % (Auto) 9.1 H Eos % (Auto) 1.1 Baso % (Auto) 0.3 Lymph # (Auto) 0.81 L Travis # (Auto) 0.6 Eos # (Auto) 0.1 Baso # (Auto) 0.0 Abs Immat Gran (auto) 0.01 Absolute Neuts (auto) 5.1 Absolute Nucleated RBC 0.000 Nucleated RBC % 0.0 PT 14.0 INR 1.1 APTT 23.7 Sodium 138 Potassium 4.0 Chloride 107 Carbon Dioxide 25 Anion Gap 6 BUN 23 H Creatinine 1.09 Estim Creat Clear Calc 76 Estimated GFR > 60 Glucose 99 Calcium 8.7 Total Bilirubin 0.7 AST 29 ALT 30 Alkaline Phosphatase 79 Total Creatine Kinase 50 L Troponin I < 0.012 < 0.012 < 0.012 Total Protein 6.7 Albumin 4.1 Triglycerides 179 H Cholesterol 100 LDL Cholesterol Direct 39 HDL Direct 30 Lipase 120 01/02/25 03:30 WBC 5.4 RBC 5.25 Hgb 14.7 Hct 44.9 MCV 85.5 MCH 28.0 MCHC 32.7 RDW 11.9 Plt Count 148 L MPV 10.3 Immature Gran % (Auto) 0.2 Neut % (Auto) 59.2 Lymph % (Auto) 24.1 Travis % (Auto) 13.3 H Eos % (Auto) 2.8 Baso % (Auto) 0.4 Lymph # (Auto) 1.29 Travis # (Auto) 0.7 H Eos # (Auto) 0.2 Baso # (Auto) 0.0 Abs Immat Gran (auto) 0.01 Absolute Neuts (auto) 3.2 Absolute Nucleated RBC 0.000 Nucleated RBC % 0.0 PT INR APTT Sodium 138 Potassium 4.1 Chloride 105 Carbon Dioxide 29 Anion Gap 4 BUN 20 Creatinine 1.00 Estim Creat Clear Calc 90 Estimated GFR > 60 Glucose 91 Calcium 8.7 Total Bilirubin AST ALT Alkaline Phosphatase Total Creatine Kinase Troponin I Total Protein Albumin Triglycerides Cholesterol LDL Cholesterol Direct HDL Direct Lipase ASA Classification/Sedation ASA Classification/Sedation ASA Class: III Emergent: No Risks: Risks, benefits and alternatives explained and patient/family accepted plan for sedation. Patient re-evaluated immediately prior to sedation.
--- NOTE | 2025-01-02 11:01 | P.PNIM_ITS ---
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 - Hypertension secondary to endocrine disorders Code(s): I10 - Essential (primary) hypertension Status: Acute (3) Chest pain: Qualifiers: Chest pain type: unspecified Qualified Code(s): R07.9 - Chest pain, unspecified Code(s): R07.9 - Chest pain, unspecified Status: Acute (4) Coronary artery disease: Code(s): I25.10 - Atherosclerotic heart disease of [place] coronary artery without angina pectoris Status: Acute (5) Paroxysmal atrial fibrillation: Code(s): I48.0 - Paroxysmal atrial fibrillation Status: Acute (6) Diabetes: Qualifiers: Diabetes mellitus type: type 2 Diabetes mellitus senior care insulin use: 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 Patient was brought in by EMS complaining of chest pain, dry mouth, dizziness, and clammy skin.Of note patient presented to the emergency room on 11/22/24 with chest pain or troponins were trended in the emergency room and he was discharged home. Lab work in the ED CBC is within normal limits, BMP is within normal limits, 1st troponin is negative. 1. Chest pain: History of coronary artery disease, status post PCI to proximal LAD after an AMI, PCI to proximal LCX, nonobstructive CAD with 45% stenosis from mid to distal LAD, patent stent in proximal LCX, 50% stenosis in distal left circ, 50% stenosis in proximal diagonal 35% stenosis in proximal RCA, 35% stenosis in mid RCA, 70% stenosis in distal RCA, 90% stenosis in the RPDA Hypertension Continue with tele monitoring Cardiology has been consulted Troponin x3 were negative Obtain echocardiogram likely plan for cardiac catheterization later today Continue aspirin 81 mg daily, Plavix 75 mg daily Continue rosuvastatin 40 mg daily Continue metoprolol 25 mg b.i.d. 2. Paroxysmal atrial fibrillation: He is not on anticoagulation due to having only 3 known episodes Consider loop recorder twenty stent burden of AFib Monitor electrolytes 3. DVT prophylaxis: Lovenox 4. Code status: Full 5. Disposition: Pending improvement Time Spent With Patient Time: 37 minutes Subjective Date/time seen: 01/02/25 11:01 Interval history: No acute events overnight, denies any chest pain at the moment Review of Systems Review of Systems: All systems reviewed & are unremarkable except as noted in HPI and below Exam Narrative: General: No acute distress HEENT: normocephalic, atraumatic. Mucous membranes moist. Respiratory: clear to ascultation bilaterally. No rales/rhonic/wheezes. Cardiovascular: Regular rate and rhythm, normal S1-S2 upon ascultation. Abdomen: Soft,, nondistended and nontender. Bowel sounds present Extremities: No cyanosis, clubbing, or edema present. Neuro: Alert and orientated x 4. PERRLA. Skin: Warm, dry, and intact, . Psych: pleasant, cooperative, normal speech, Objective Data Vital Signs Vital Signs: Vital Signs - 24 hr 01/01/25 15:11 01/01/25 15:15 01/01/25 15:30 Temperature 98.0 F Pulse Rate 101 H 102 H Respiratory Rate 16 17 Blood Pressure 119/83 121/76 Pulse Oximetry 96 99 Oxygen Delivery Autopap Room Air 01/01/25 15:30 01/01/25 15:45 01/01/25 16:00 Temperature Pulse Rate 100 95 91 Respiratory Rate 21 H 15 17 Blood Pressure 117/85 111/71 106/77 Pulse Oximetry 97 97 95 Oxygen Delivery 01/01/25 16:15 01/01/25 16:30 01/01/25 16:55 Temperature 98 F Pulse Rate 85 90 64 Respiratory Rate 18 20 18 Blood Pressure 112/83 107/74 117/79 Pulse Oximetry 96 95 95 Oxygen Delivery 01/01/25 17:41 01/01/25 18:00 01/01/25 19:56 Temperature 98.4 F Pulse Rate 92 87 Respiratory Rate 15 Blood Pressure 104/65 Pulse Oximetry 96 Oxygen Delivery Room Air 01/01/25 20:00 01/01/25 20:00 01/01/25 22:00 Temperature Pulse Rate 82 70 Respiratory Rate Blood Pressure Pulse Oximetry 96 Oxygen Delivery Room Air 01/02/25 00:00 01/02/25 00:00 01/02/25 00:00 Temperature 98.0 F Pulse Rate 69 65 Respiratory Rate 16 Blood Pressure 110/73 Pulse Oximetry 94 98 Oxygen Delivery Room Air 01/02/25 02:00 01/02/25 03:53 01/02/25 04:00 Temperature 97.8 F Pulse Rate 61 62 58 L Respiratory Rate 16 Blood Pressure 107/76 Pulse Oximetry 97 Oxygen Delivery 01/02/25 04:00 01/02/25 07:53 01/02/25 08:00 Temperature 98.0 F Pulse Rate 68 71 Respiratory Rate 16 Blood Pressure 110/80 Pulse Oximetry 98 97 Oxygen Delivery Room Air 01/02/25 08:11 01/02/25 10:27 Temperature Pulse Rate 73 Respiratory Rate Blood Pressure Pulse Oximetry 99 Oxygen Delivery Room Air Intake/Output Intake/Output: Intake & Output 12/30/24 12/31/24 01/01/25 01/02/25 23:59 23:59 23:59 23:59 Intake Total 515 790 Balance 515 790 Meds/Results Medications: Active Medications Generic Name Dose Route Start Last Admin Trade Name Freq PRN Reason Stop Dose Admin Acetaminophen 650 mg 01/01/25 16:08 Acetaminophen 325 Mg Tablet PO Q4H PRN Mild Pain (1-3) or Fever Aspirin 81 mg 01/02/25 08:00 01/02/25 08:11 Aspirin 81 Mg Chewable Tablet PO 81 mg DAILY@0800 [facility] Administration Buspirone HCl 5 mg 01/01/25 21:00 01/02/25 08:54 Buspirone Hcl 5 Mg Tablet PO 5 mg Q12HR [facility] Administration Clopidogrel Bisulfate 75 mg 01/02/25 09:00 01/02/25 08:12 Clopidogrel Bisulfate 75 Mg Tablet PO 75 mg DAILY [facility] Administration Docusate Sodium 100 mg 01/01/25 16:57 01/02/25 08:12 Docusate Sodium 100 Mg Capsule PO 100 mg BID PRN Administration Constipation Enoxaparin Sodium 40 mg 01/02/25 09:00 01/02/25 08:13 Enoxaparin 40 Mg/0.4 Ml Syringe SUB-Q 40 mg DAILY [facility] Administration Metoprolol Succinate 25 mg 01/02/25 09:00 01/02/25 08:11 Metoprolol Succinate Ext Rel 25 Mg Tabcr PO 25 mg DAILY [facility] Administration Nitroglycerin 0.4 mg 01/01/25 19:15 Nitroglycerin Sl 0.4 Mg Tablet SUBLINGUAL Q5MIN PRN Chest Pain Pantoprazole Sodium 40 mg 01/01/25 21:00 01/02/25 08:12 Pantoprazole 40 Mg Tablet PO 40 mg Q12HR [facility] Administration Perflutren Lipid Microsphere 0 ml 01/01/25 19:15 Perflutren Lipid Microspheres 1.5 Ml Vial Diluted To 10 Ml Total Volume IV PUSH 01/04/25 19:16 ONCE PRN adequate visualization Protocol Perflutren Lipid Microsphere 0 ml 01/02/25 08:37 Perflutren Lipid Microspheres 1.5 Ml Vial Diluted To 10 Ml Total Volume IV PUSH 01/05/25 08:37 ONCE PRN adequate visualization Protocol Rosuvastatin Calcium 40 mg 01/01/25 21:00 01/01/25 20:07 Rosuvastatin 20 Mg Tablet PO 40 mg HS [facility] Administration Radiology Results: ITS Impressions Chest X-Ray 01/01/25 16:11 Impression: No acute cardiopulmonary abnormality. Labs Labs: Laboratory Results - last 24 hr 01/01/25 01/01/25 01/01/25 15:32 18:31 21:26 WBC 6.6 RBC 5.35 Hgb 15.0 Hct 46.1 MCV 86.2 MCH 28.0 MCHC 32.5 RDW 11.9 Plt Count 155 MPV 10.2 Immature Gran % (Auto) 0.2 Neut % (Auto) 77.0 H Lymph % (Auto) 12.3 L [place] % (Auto) 9.1 H Eos % (Auto) 1.1 Baso % (Auto) 0.3 Lymph # (Auto) 0.81 L [place] # (Auto) 0.6 Eos # (Auto) 0.1 Baso # (Auto) 0.0 Abs Immat Gran (auto) 0.01 Absolute Neuts (auto) 5.1 Absolute Nucleated RBC 0.000 Nucleated RBC % 0.0 PT 14.0 INR 1.1 APTT 23.7 Sodium 138 Potassium 4.0 Chloride 107 Carbon Dioxide 25 Anion Gap 6 BUN 23 H Creatinine 1.09 Estim Creat Clear Calc 76 Estimated GFR > 60 Glucose 99 Calcium 8.7 Total Bilirubin 0.7 AST 29 ALT 30 Alkaline Phosphatase 79 Total Creatine Kinase 50 L Troponin I < 0.012 < 0.012 < 0.012 Total Protein 6.7 Albumin 4.1 Triglycerides 179 H Cholesterol 100 LDL Cholesterol Direct 39 HDL Direct 30 Lipase 120 01/02/25 03:30 WBC 5.4 RBC 5.25 Hgb 14.7 Hct 44.9 MCV 85.5 MCH 28.0 MCHC 32.7 RDW 11.9 Plt Count 148 L MPV 10.3 Immature Gran % (Auto) 0.2 Neut % (Auto) 59.2 Lymph % (Auto) 24.1 Cros[place] % (Auto) 13.3 H Eos % (Auto) 2.8 Baso % (Auto) 0.4 Lymph # (Auto) 1.29 Cros[place] # (Auto) 0.7 H Eos # (Auto) 0.2 Baso # (Auto) 0.0 Abs Immat Gran (auto) 0.01 Absolute Neuts (auto) 3.2 Absolute Nucleated RBC 0.000 Nucleated RBC % 0.0 PT INR APTT Sodium 138 Potassium 4.1 Chloride 105 Carbon Dioxide 29 Anion Gap 4 BUN 20 Creatinine 1.00 Estim Creat Clear Calc 90 Estimated GFR > 60 Glucose 91 Calcium 8.7 Total Bilirubin AST ALT Alkaline Phosphatase Total Creatine Kinase Troponin I Total Protein Albumin Triglycerides Cholesterol LDL Cholesterol Direct HDL Direct Lipase Quality VTE Prophylaxis VTE prophylaxis: pharmacologic ordered
--- NOTE | 2025-01-02 15:01 | P.PCNCC_ITS ---
Cardiac Cath Procedure Note Date of procedure:: 01/02/25 Performing physician:: Helena Mosquera MD Indication:: CATHETERIZATION LABORATORY REPORT Procedure Date: 01/02/2025 Anesthesia: Versed and Fentanyl were ordered and given in my presence at 2:14 p.m., procedure ended at 2:38 p.m.. Supervision of nurse monitored moderate sedation with Versed and Fentanyl was provided for 24 minutes. Pre-op Diagnosis: Unstable angina Post-op Diagnosis: Obstructive CAD Procedure(s): Left heart catheterization with coronary angiography Access Site: Right common femoral artery Brief History and Clinical Indications: All risks, benefits and alternatives to left heart catheterization with or without percutaneous coronary intervention was discussed at length with the patient. Risk of complications including but not limited to bleeding, infection, arrhythmia, stroke, worsening kidney function, blood loss, groin hematoma, limb loss, emergency coronary artery bypass grafting, and even were discussed with the patient and all questions were answered. The patient understood and wished to proceed. Time out called, patient name, date of , medical record number, allergies, procedure performed, identify Brick Setter, patient and staff member concurred with accurate data, procedure carried on. Findings: LEFT HEART CATHETERIZATION FINDINGS: 1. Left main: The left main coronary artery is widely patent without any significant obstructive disease. 2. Left anterior descending: The LAD has mild luminal irregularities without any significant obstructive angiographic disease. The 1st diagonal has 90% stenosis. 3. Left circumflex: The prior stent in the left circumflex artery is widely patent. The main marginal branches are widely patent without any significant obstructive angiographic disease. 4. Right coronary artery: The proximal RCA has 30% proximal and 30% mid stenosis. There is a 70% stenosis in the distal RCA and 95% stenosis in the RPDA. These lesions appear calcified. The RCA is the dominant vessel. 5. Left ventricle: A. End-diastolic pressure 90 mmHg. B. LV gram deferred. C. No significant gradient across aortic valve on catheter pullback. 6. Opening AO pressure 124/61/90 mm Hg and closing AO pressure 91/61/75 mm Hg Description of Procedure: Informed consent signed and placed in the chart. Patient transferred to labor relations analyst room. Prepped and draped in usual sterile fashion. 2% lidocaine in right groin area. Micropuncture needle used to access right common femoral artery with Seldinger technique under fluoroscopic guidance. J wire advanced, micropuncture cannula placed. Right iliofemoral angiogram performed, access confirmed and micropuncture cannula exchanged for 6-FR sheath. ? Five Croatian JL 3.5 diagnostic catheter engaged Left Main Coronary Artery. 5 Croatian JR4 diagnostic catheter engaged Right Coronary Artery. Multiple orthogonal angiogram obtained and reviewed 5 Croatian JR4 diagnostic catheter crossed aortic valve to obtain LVEDP, LV angiogram deferred. Hemostasis was achieved by 6 Croatian Angio-Seal Assessment: Chest pain-stable angina; no plaque rupture on cardiac catheterization Obstructive CAD- calcified 70% stenosis in distal RCA, calcified 90% stenosis in the body of the RPDA, 90% stenosis in the 1st diagonal Post Operative Condition: Stable No significant blood loss Disposition: Floor/Home Plan: The patient will be monitored in the recovery area. Continue antiplatelet aspirin and Plavix. Add Imdur 30 mg p.o. daily. Recommend PCI to distal RCA and RPDA with calcium modification if symptoms are not resolved with addition of Imdur. Continue aggressive medical therapy and risk factor modification. IV fluids normal saline at 100 mL/hour for 1 L. Continue statin, [id number]. Follow-up with cardiology in 1 month. Helena Mosquera MD, MS, FACC, [facility] Interventional Cardiology
--- NOTE | 2025-01-02 16:38 | PC.NURSE ---
Per DR Muñiz note the patient would be ok to d/c today. Notified Dr Evans who states she wants to keep him another night.
--- NOTE | 2025-01-02 17:00 | PCRCNOTE ---
Pt. states he hasn't worn his CPAP at home for a very long time and doesn't want to borrow one of ours; Pt.'s Jayy Aguero notified.
[2025-01-02] MEDS: ISOSORBIDE MONONITRATE 30 MG TAB.ER.24H PO (17:51)
[2025-01-02] MEDS: ROSUVASTATIN 20 MG TABLET 40 MG PO (20:01)
[2025-01-03] VITALS (9 sets, daily range): BP systolic 96–104; BP diastolic 55–75; PULSE 62–81; RESP 16; TEMP 36.5–36.8; O2SAT 94–96
[2025-01-03 04:13] LABS: Hematocrit 46.5 % (42.0-52.0); Hemoglobin 15.3 g/dL (14.0-18.0); Immature Granulocyte Percent A 0.2 % (0-0.5); Lymphocytes Absolute Auto 1.05 K/mm3 (0.9-3.2); Mean Corpuscular HGB Conc 32.9 g/dl (32-36); Mean Corpuscular Hemoglobin 28.0 pg (26-34); Mean Corpuscular Volume 85.2 fl (80-100); Nucleated Red Blood Cells Absolute Auto 0.000 K/mm3 (0.0-0.012); Nucleated Red Blood Cells Perc 0.0 % (0.0-0.2); Platelet Count Result 157 k/mm3 (150-375); Red Blood Count 5.46 M/mm3 (4.6-6.20); White Blood Count 5.3 K/mm3 (4.5-10.0)
[2025-01-03 04:31] LABS: Anion Gap 4 mmol/L (4-12); Blood Urea Nitrogen 17 mg/dL (9-20); Calcium 8.7 mg/dL (8.4-10.2); Carbon Dioxide 28 mmol/L (22-30); Chloride 105 mmol/L (98-107); Estimated CRCL calculation 85 ml/min; Estimated Glomerular Filt Rate > 60; Glucose 95 mg/dL (65-110); Magnesium 2.2 mg/dL (1.6-2.3); Potassium 4.2 mmol/L (3.4-5.0); Sodium 137 mmol/L (137-145)
--- NOTE | 2025-01-03 07:12 | P.PNCA_ITS ---
Progress Note: A&P Assessment and Plan (1) Coronary artery disease: Code(s): I25.10 - Atherosclerotic heart disease of [place] coronary artery without angina pectoris Status: Acute (2) Atrial fibrillation, currently in sinus rhythm: Code(s): Z86.79 - Personal history of other diseases of the circulatory system Status: Acute Plan Diagnosis: -Coronary artery disease; PCI to proximal LCX after AMI 4 years ago, catheterization 3 years ago showed nonobstructive CAD with 45% stenosis from mid to distal LAD, patent stent in proximal LCX, 50% stenosis in distal left circ, 50% stenosis in proximal diagonal 35% stenosis in proximal RCA, 35% stenosis in mid RCA, 70% stenosis in distal RCA, 90% stenosis in the RPDA -Hypertension -Paroxysmal atrial fibrillation-currently sinus rhythm; not on anticoagulation as patient had only 3 episodes -Obstructive sleep apnea Plan: -Patient has been having frequent chest pains while on anti anginal therapy. Catheterization showed widely patent proximal LCX stent, obstructive CAD with 70% calcific distal RCA stenosis, 90% calcific RPDA stenosis, and 90% diagonal stenosis. He also has 40% stenosis in proximal and mid RCA. TTE shows normal LVEF, RWMA in the basal inferolateral and mid inferolateral botello, moderate LA. Stress MPS to evaluate for ischemia in the diagonal territory. Plan for PCI to RCA and possible PCI to diagonal as outpatient with Dr. Vargas -Continue aspirin 81 mg daily, Plavix 75 mg daily -Continue rosuvastatin 40 mg daily -Continue metoprolol 25 mg daily -Added Imdur 30 mg daily. Patient had headaches with this in the past but he is tolerating it well in the hospital. Advised him to check BP daily and hold imdur for SBP<110 and/or headache -Monitor on telemetry -Check and replace electrolytes keep potassium greater than 4 and magnesium greater than 2 -Chads Vasc score is 2 (hypertension=1, CAD= 1) but he is not on anticoagulation due to having only 3 known episodes. However he continues to have some symptoms that could be secondary to AFib. Discharge with event monitor to evaluate burden of A fib and discuss anticoagulation -Above plan was discussed with patient and he is agreeable Subjective Date/time seen: 01/03/25 07:12 Review of Systems Cardiovascular: Comments: As per HPI Respiratory: Comments: As per HPI Exam Narrative: General: Alert oriented x3, no acute distress Neck: Supple, no JVD Chest: Bilaterally clear to auscultation, no rales or rhonchi Cardiac: S1, S2 +, regular rate, regular rhythm, no murmurs or rubs Extremities: No pedal edema, no skin rash Neurologic: Alert and oriented x3, no focal neurological deficits Objective Data Vital Signs Vital Signs: Vital Signs - 24 hr 01/02/25 07:53 01/02/25 08:00 01/02/25 08:11 Temperature 36.7 C Pulse Rate 68 71 73 Pulse Rate [Monitor] Pulse Rate [Right Pedal (Dorsalis Pedis)] Respiratory Rate 16 Blood Pressure 110/80 Pulse Oximetry 97 Oxygen Delivery 01/02/25 10:00 01/02/25 10:27 01/02/25 11:47 Temperature 36.6 C Pulse Rate 69 62 Pulse Rate [Monitor] Pulse Rate [Right Pedal (Dorsalis Pedis)] Respiratory Rate 12 Blood Pressure 108/70 Pulse Oximetry 99 99 Oxygen Delivery Room Air 01/02/25 12:00 01/02/25 15:00 01/02/25 15:00 Temperature Pulse Rate 84 80 Pulse Rate [Monitor] 80 Pulse Rate [Right Pedal (Dorsalis Pedis)] 80 Respiratory Rate 14 Blood Pressure 113/80 Pulse Oximetry 97 Oxygen Delivery Room Air 01/02/25 15:15 01/02/25 15:15 01/02/25 15:30 Temperature Pulse Rate 72 Pulse Rate [Monitor] 72 73 Pulse Rate [Right Pedal (Dorsalis Pedis)] 72 73 Respiratory Rate 12 Blood Pressure 113/83 Pulse Oximetry 96 Oxygen Delivery Room Air 01/02/25 15:30 01/02/25 15:45 01/02/25 15:45 Temperature Pulse Rate 73 66 Pulse Rate [Monitor] 66 Pulse Rate [Right Pedal (Dorsalis Pedis)] 66 Respiratory Rate 13 12 Blood Pressure 121/75 115/82 Pulse Oximetry 95 97 Oxygen Delivery Room Air Room Air 01/02/25 16:00 01/02/25 16:00 01/02/25 16:30 Temperature 36.7 C Pulse Rate 73 84 73 Pulse Rate [Monitor] Pulse Rate [Right Pedal (Dorsalis Pedis)] Respiratory Rate 14 20 Blood Pressure 112/79 112/76 Pulse Oximetry 95 95 Oxygen Delivery 01/02/25 17:30 01/02/25 18:00 01/02/25 18:30 Temperature 36.7 C 36.7 C Pulse Rate 76 86 69 Pulse Rate [Monitor] Pulse Rate [Right Pedal (Dorsalis Pedis)] Respiratory Rate 12 16 Blood Pressure 121/81 108/78 Pulse Oximetry 96 96 Oxygen Delivery 01/02/25 19:46 01/02/25 19:47 01/02/25 20:00 Temperature 36.7 C Pulse Rate 74 Pulse Rate [Monitor] 65 Pulse Rate [Right Pedal (Dorsalis Pedis)] Respiratory Rate 16 Blood Pressure 94/63 L Pulse Oximetry 94 94 Oxygen Delivery Room Air 01/02/25 20:00 01/02/25 22:00 01/02/25 23:44 Temperature 36.7 C Pulse Rate 80 69 69 Pulse Rate [Monitor] Pulse Rate [Right Pedal (Dorsalis Pedis)] Respiratory Rate 18 Blood Pressure 106/66 Pulse Oximetry 95 Oxygen Delivery 01/03/25 00:00 01/03/25 00:00 01/03/25 02:00 Temperature Pulse Rate 70 70 Pulse Rate [Monitor] Pulse Rate [Right Pedal (Dorsalis Pedis)] Respiratory Rate Blood Pressure Pulse Oximetry 94 Oxygen Delivery Room Air 01/03/25 04:00 01/03/25 04:00 01/03/25 04:18 Temperature 36.8 C Pulse Rate 68 77 Pulse Rate [Monitor] Pulse Rate [Right Pedal (Dorsalis Pedis)] Respiratory Rate 16 Blood Pressure 96/55 L Pulse Oximetry 95 96 Oxygen Delivery Room Air 01/03/25 06:00 Temperature Pulse Rate 62 Pulse Rate [Monitor] Pulse Rate [Right Pedal (Dorsalis Pedis)] Respiratory Rate Blood Pressure Pulse Oximetry Oxygen Delivery Intake/Output Intake/Output: Intake & Output 12/31/24 01/01/25 01/02/25 01/03/25 23:59 23:59 23:59 23:59 Intake Total 515 1450 1000 Output Total 0 Balance 515 1450 1000 Meds/Results Medications: Active Medications Generic Name Dose Route Start Last Admin Trade Name Freq PRN Reason Stop Dose Admin Acetaminophen 650 mg 01/01/25 16:08 Acetaminophen 325 Mg Tablet PO Q4H PRN Mild Pain (1-3) or Fever Aspirin 81 mg 01/02/25 08:00 01/02/25 08:11 Aspirin 81 Mg Chewable Tablet PO 81 mg DAILY@0800 [facility] Administration Buspirone HCl 5 mg 01/01/25 21:00 01/02/25 20:00 Buspirone Hcl 5 Mg Tablet PO 5 mg Q12HR [facility] Administration Clopidogrel Bisulfate 75 mg 01/02/25 09:00 01/02/25 08:12 Clopidogrel Bisulfate 75 Mg Tablet PO 75 mg DAILY [facility] Administration Docusate Sodium 100 mg 01/01/25 16:57 01/02/25 08:12 Docusate Sodium 100 Mg Capsule PO 100 mg BID PRN Administration Constipation Enoxaparin Sodium 40 mg 01/02/25 09:00 01/02/25 08:13 Enoxaparin 40 Mg/0.4 Ml Syringe SUB-Q 40 mg DAILY [facility] Administration Isosorbide Mononitrate 30 mg 01/03/25 09:00 Isosorbide Mononitrate 30 Mg Tab.Er.24h PO QAM [facility] Metoprolol Succinate 25 mg 01/02/25 09:00 01/02/25 08:11 Metoprolol Succinate Ext Rel 25 Mg Tabcr PO 25 mg DAILY [facility] Administration Nitroglycerin 0.4 mg 01/01/25 19:15 Nitroglycerin Sl 0.4 Mg Tablet SUBLINGUAL Q5MIN PRN Chest Pain Pantoprazole Sodium 40 mg 01/01/25 21:00 01/02/25 20:00 Pantoprazole 40 Mg Tablet PO 40 mg Q12HR [facility] Administration Perflutren Lipid Microsphere 0 ml 01/01/25 19:15 Perflutren Lipid Microspheres 1.5 Ml Vial Diluted To 10 Ml Total Volume IV PUSH 01/04/25 19:16 ONCE PRN adequate visualization Protocol Perflutren Lipid Microsphere 0 ml 01/02/25 08:37 Perflutren Lipid Microspheres 1.5 Ml Vial Diluted To 10 Ml Total Volume IV PUSH 01/05/25 08:37 ONCE PRN adequate visualization Protocol Rosuvastatin Calcium 40 mg 01/01/25 21:00 01/02/25 20:01 Rosuvastatin 20 Mg Tablet PO 40 mg HS [facility] Administration Radiology Results: ITS Impressions Chest X-Ray 01/01/25 16:11 Impression: No acute cardiopulmonary abnormality. Labs Labs: Laboratory Results - last 24 hr 01/03/25 04:00 WBC 5.3 RBC 5.46 Hgb 15.3 Hct 46.5 MCV 85.2 MCH 28.0 MCHC 32.9 RDW 12.0 Plt Count 157 MPV 10.2 Immature Gran % (Auto) 0.2 Neut % (Auto) 66.2 Lymph % (Auto) 19.7 [place] % (Auto) 10.9 H Eos % (Auto) 2.6 Baso % (Auto) 0.4 Lymph # (Auto) 1.05 [place] # (Auto) 0.6 Eos # (Auto) 0.1 Baso # (Auto) 0.0 Abs Immat Gran (auto) 0.01 Absolute Neuts (auto) 3.5 Absolute Nucleated RBC 0.000 Nucleated RBC % 0.0 Sodium 137 Potassium 4.2 Chloride 105 Carbon Dioxide 28 Anion Gap 4 BUN 17 Creatinine 1.06 Estim Creat Clear Calc 85 Estimated GFR > 60 Glucose 95 Calcium 8.7 Magnesium 2.2
[2025-01-03] MEDS: PANTOPRAZOLE 40 MG TABLET PO (08:06)
[2025-01-03] MEDS: CLOPIDOGREL BISULFATE 75 MG TABLET PO (08:06)
[2025-01-03] MEDS: ISOSORBIDE MONONITRATE 30 MG TAB.ER.24H PO (08:07)
[2025-01-03] MEDS: ENOXAPARIN 40 MG/0.4 ML SYRINGE SUB-Q (08:07)
[2025-01-03] MEDS: METOPROLOL SUCCINATE EXT REL 25 MG TABCR PO (08:07)
[2025-01-03] MEDS: ASPIRIN 81 MG CHEWABLE TABLET PO (08:07)
--- NOTE | 2025-01-03 10:10 | PM.DS ---
DS: Admitting Diagnosis Discharge Date 01/03/25 Admitting Diagnosis Chest pain DS: Discharge Diagnosis Discharge Diagnosis (1) Chest pain: Qualifiers: Chest pain type: unspecified Qualified Code(s): R07.9 - Chest pain, unspecified Code(s): R07.9 - Chest pain, unspecified Status: Acute (2) Hypertension: Qualifiers: Hypertension type: secondary to endocrine disorders Qualified Code(s): I15.2 - Hypertension secondary to endocrine disorders Code(s): I10 - Essential (primary) hypertension Status: Acute (3) Atrial fibrillation, currently in sinus rhythm: Code(s): Z86.79 - Personal history of other diseases of the circulatory system Status: Acute (4) Paroxysmal atrial fibrillation: Code(s): I48.0 - Paroxysmal atrial fibrillation Status: Acute DS: Summary Hospital Course Reason for hospitalization: Chest pain Hospital Course: 54-year-old male past medical history of hypertension, hyperlipidemia, KATIE, CAD status post stents, and atrial fibrillation presents the hospital chest pain. Patient was brought in by EMS complaining of chest pain, dry mouth, dizziness, and clammy skin.Of note patient presented to the emergency room on 11/22/24 with chest pain or troponins were trended in the emergency room and he was discharged home. Lab work in the ED CBC is within normal limits, BMP is within normal limits. Troponins were unremarkable. Cardiology was consulted. Underwent cardiac catheterization. Patient has history of coronary artery disease with history of PCI to proximal LCX after AMI 4 years ago, catheterization 3 years ago showed nonobstructive CAD with 45% stenosis from mid to distal LAD, patent stent in proximal LCX, 50% stenosis in distal left circ, 50% stenosis in proximal diagonal 35% stenosis in proximal RCA, 35% stenosis in mid RCA, 70% stenosis in distal RCA, 90% stenosis in the RPDA Catheterization this admission showed widely patent proximal LCX stent, obstructive CAD with 70% calcific distal RCA stenosis, 90% calcific RPDA stenosis, and 90% diagonal stenosis. He also has 40% stenosis in proximal and mid RCA. TTE shows normal LVEF, RWMA in the basal inferolateral and mid inferolateral botello, moderate [place]. Stress MPS to evaluate for ischemia in the diagonal territory. Plan for PCI to RCA and possible PCI to diagonal as outpatient with Dr. Vargas. Patient was continued on aspirin, Plavix, statin, metoprolol, Imdur was added. Patient will be discharged on event monitor to evaluate the burden of AFib and discuss anticoagulation as an outpatient. Patient was discharged home in stable condition Status at Discharge Functional status at discharge: independent ambulation Overall status at discharge: patient is back to baseline Time Spent with Patient Time attestation: Total time spent providing and/or coordinating discharge services: 34 minutes Exam Narrative: General: No acute distress HEENT: normocephalic, atraumatic. Mucous membranes moist. Respiratory: clear to ascultation bilaterally. No rales/rhonic/wheezes. Cardiovascular: Regular rate and rhythm, normal S1-S2 upon ascultation. Abdomen: Soft,, nondistended and nontender. Bowel sounds present Extremities: No cyanosis, clubbing, or edema present. Neuro: Alert and orientated x 4. PERRLA. Skin: Warm, dry, and intact, . Psych: pleasant, cooperative, normal speech, DS: Data Data Completed and Pending Labs on day of discharge: Labs from last 24 hours 01/03/25 04:00 WBC 5.3 RBC 5.46 Hgb 15.3 Hct 46.5 MCV 85.2 MCH 28.0 MCHC 32.9 RDW 12.0 Plt Count 157 MPV 10.2 Immature Gran % (Auto) 0.2 Neut % (Auto) 66.2 Lymph % (Auto) 19.7 [place] % (Auto) 10.9 H Eos % (Auto) 2.6 Baso % (Auto) 0.4 Lymph # (Auto) 1.05 [place] # (Auto) 0.6 Eos # (Auto) 0.1 Baso # (Auto) 0.0 Abs Immat Gran (auto) 0.01 Absolute Neuts (auto) 3.5 Absolute Nucleated RBC 0.000 Nucleated RBC % 0.0 Sodium 137 Potassium 4.2 Chloride 105 Carbon Dioxide 28 Anion Gap 4 BUN 17 Creatinine 1.06 Estim Creat Clear Calc 85 Estimated GFR > 60 Glucose 95 Calcium 8.7 Magnesium 2.2 Discharge Plan Discharge Attending physician on discharge: Laura Evans Consulting providers: Marisol Beyer Poonam Discharging Clinician: Laura Evans Anticipated Discharge Date/Time: 01/03/25 08:49 Patient Disposition: Home Activity: as tolerated Diet: heart healthy Patient Instructions: Antibiotic Form, Clopidogrel (By mouth), Angina (DC), Heart Healthy Diet (DC), Holter Monitor (GEN) Patient Language: [place] Stand Alone Forms: General Discharge Information Follow-up/Referrals: Marisol Beyer DO [Physician, Family Practice] - 2 Weeks Helena Mosquera MD [Physician, Cardiology] - 2 Weeks Discharge Medications: New isosorbide mononitrate 30 mg Tablet Extended Release 24 Hr 30 mg PO QAM Qty: 30 0RF Continued metoprolol succinate [Toprol XL] 50 mg tablet extended release 24 hr 25 mg PO DAILY clopidogrel [Plavix] 75 mg tablet 75 mg PO DAILY nitroglycerin [Nitrostat] 0.4 mg tablet, sublingual 0.4 mg sublingual PRN PRN (Reason: Chest Pain) aspirin 81 mg Tablet 81 mg PO HS rosuvastatin [Crestor] 20 mg tablet 40 mg PO HS acetaminophen 500 mg Tablet 500 mg PO Q6H PRN (Reason: Pain) semaglutide 0.25 mg or 0.5 mg (2 mg/3 mL) Pen Injector 0.5 mg SUBCUT WEEKLY Rx Instructions: Pt takes on . pantoprazole 40 mg Tablet,Delayed Release (Dr/Ec) 40 mg PO Q12HR Qty: 60 0RF buspirone 5 mg tablet 5 mg PO BID Other Ambulatory Orders: [place] cardiac event monitor (Routine) Timeframe: 1 Month Location: Determined by Patient Ordered By: Nataliia Mijares Date of admission: 01/01/25 16:08 Primary Care Provider: Justin,Mara Admitting Provider: Juan Duggan Attending physician on admission: Juan Duggan Condition: Improved
== END 2025-01-03 11:00 | disposition home or self-care (01) ==
LOC: ANHED 16:07 → ANHIMU 17:39
PROVIDERS: Emergency Medicine; Internal Medicine Interventional Cardiology; Nurse Practitioner Gerontology; Admitting Provider Family Medicine; Emergency Provider Emergency Medicine; Visit Provider Internal Medicine
PROC: 4A023N7 Measurement of Cardiac Sampling and Pressure, Left Heart, Percutaneous Approach (ICD-10-PCS; CPT 93452; principal; 2025-01-02 14:00)
DX: R07.9 Chest pain, unspecified (principal); I25.10 Atherosclerotic heart disease of native coronary artery without angina pectoris; I48.0 Paroxysmal atrial fibrillation; R68.2 Dry mouth, unspecified; R23.1 Pallor; I15.2 Hypertension secondary to endocrine disorders; Z95.5 Presence of coronary angioplasty implant and graft; E78.5 Hyperlipidemia, unspecified; F41.9 Anxiety disorder, unspecified; I08.1 Rheumatic disorders of both mitral and tricuspid valves; I37.1 Nonrheumatic pulmonary valve insufficiency; E11.9 Type 2 diabetes mellitus without complications; I11.9 Hypertensive heart disease without heart failure; G47.33 Obstructive sleep apnea (adult) (pediatric); H81.09 Meniere's disease, unspecified ear; Z79.02 Long term (current) use of antithrombotics/antiplatelets; Z79.82 Long term (current) use of aspirin; Z79.899 Other long term (current) drug therapy; Z79.85 Long-term (current) use of injectable non-insulin antidiabetic drugs; Z85.828 Personal history of other malignant neoplasm of skin; Z83.3 Family history of diabetes mellitus; Z82.49 Family history of ischemic heart disease and other diseases of the circulatory system; Z84.1 Family history of disorders of kidney and ureter
CPT/HCPCS: 36415; 71045; 80048; 80053; 80061; 82550; 83690; 83735; 84484; 85025; 85610; 85730; 93005; 93306; 93458; 96372; 99285; A9270; C1760; C1769; C1887; C1894; G0378; J1644; J1650; J2003; J2250; J3010; J7040